=== PATIENT | female | born 1990 | race Caucasian/White ===

== ENCOUNTER → 2020-02-16 17:45 | Outpatient (CLI) | payer OTHER, SELFPAY | DX: Z11.59 Encounter for screening for other viral diseases (principal) | CPT/HCPCS: 87635; G2023; U0003 ==

== ENCOUNTER 2023-05-27 09:57 | Emergency (ER) | payer OTHER, SELFPAY ==
[2023-05-27 09:58] VITALS: BP 122/61; PULSE 84; RESP 18; TEMP 36.6; O2SAT 100; BMI 40.3
--- NOTE | 2023-05-27 10:27 | US_ITS ---
INDICATION: PAIN EXAMINATION: Ultrasound US Abdomen Limited (quadrant) TECHNIQUE: Gallegos scale and color doppler imaging was performed of the right upper quadrant. COMPARISON: No relevant prior comparison study available FINDINGS: LIVER: There is normal echotexture. No focal hepatic lesion. There is no free fluid. GALLBLADDER AND BILIARY TREE: No shadowing gallstone, pericholecystic fluid or gallbladder wall thickening is demonstrated. The proximal common bile duct measures 3.1 mm, which is within normal limits for the patient''s age. Songraphic Lynch''s sign: Negative. PANCREAS: No focal abnormality is demonstrated in the pancreas. No pancreatic ductal dilatation. RIGHT KIDNEY: The right kidney measures 11.8 cm in length and is within normal limits. US/Gallbladder IMPRESSION: No acute sonographic abnormality is demonstrated in the right upper quadrant. Electronically Signed: Christine Scott MD at 12:05 EDT ,
--- NOTE | 2023-05-27 10:27 | ED.VIS.GI ---
HPI HPI - GI History of Present Illness Chief Complaint: Abd Pain Informant: patient Narrative Narrative: Is a 33-year-old female currently 20 weeks (due October 07 and follows with [facility].) She is presenting with worsening right upper quad abdominal pain as well as green diarrhea. She states that started yesterday afternoon around noon or 1. She thought maybe she was hungry not eating enough but the pain has persisted and she then developed diarrhea. She notes that she had an egg and sausage wrap for breakfast yesterday and ate a small amount of chicken yesterday that self has had. She has associated nausea and the pain is worse whenever she tries to drink. She is also concern for dehydration. States the pain is sharp in her right upper quadrant and radiates to the rest of her abdomen. Has not started feeling the baby move yet because of an anterior placenta but denies any vaginal bleeding, discharge or urinary symptoms. Denies any complication with the . Did see maternal medicine because she has a history of a Stevie-en-Y in February 2020. Had her 20-week anatomy scan last week and everything looked fine per patient. No other complaints or concerns at this time. She does note that years ago she had a similar episode of pain that they thought was her gallbladder but she never had cholecystectomy or further issues. PFSH PFS Medical History (Updated 05/27/23 @ 15:[address] Caroline Rodriguez, ) Anxiety Depression Home Medications ondansetron 4 mg disintegrating tablet 4 mg PO Q6H PRN nausea and vomiting #10 tabs 05/27/23 [Rx Last Taken Unknown] Allergy/AdvReac Type Severity Reaction Status Date / Time azithromycin [From Zithromax] AdvReac Nausea/Vom/ Verified 05/27/23 10:02 Diarrhea NSAIDS (Non-Steroidal AdvReac NVD Verified 05/27/23 10:02 Anti-Inflamma Surgical History (Updated 05/27/23 @ 10:45 by Yolie Ram) Gastric bypass status for obesity Social History Smoking Status: Former smoker ROS ROS ED Constitutional Constitutional ED: Denies chills or fever(s) Cardiovascular Cardiovascular: Denies chest pain Respiratory/Chest Respiratory/Chest: Denies cough Gastrointestinal Gastrointestinal: Reports abdominal pain, diarrhea, nausea and vomiting Genitourinary Genitourinary ED: Reports other Details: 20 weeks ; Denies dysuria or hematuria Musculoskeletal Musculoskeletal: Denies arthralgias or myalgias Integumentary Denies rash Neurologic Neurologic: Denies headache(s) Psychiatric Psychiatric: Denies anxiety EXAM Physical Exam Const Vital Signs: 05/27/23 09:58 05/27/23 13:47 Temperature 97.9 F Temperature Source Temporal Pulse Rate 84 Respiratory Rate 18 18 Blood Pressure 122/61 H Blood Pressure Mean 81 Pulse Ox 100 Oxygen Delivery Method Room Air Room Air Positive well nourished and well developed General Appearance ED: well developed and NAD HEENT Reports dry mucous membranes Mouth ED: Yes dry mucous membranes Mouth: dry mucous membranes Eyes PERRL and EOMs intact bilaterally General Eye ED: Negative for scleral icterus Neck supple Resp normal respiratory effort and clear to auscultation bilaterally Cardio regular rate, regular rhythm and no murmurs GI GI Narrative: Tenderness in the upper abdomen but most pronounced in the right upper quadrant. Positive Lynch sign. Palpable uterus at the level of the umbilicus. No peritoneal signs or guarding. Auscultation: hypoactive bowel sounds Back/Spine no CVA tenderness Extremity full ROM General Extremety ED: Negative for edema General Extremity: Negative for edema Neuro moves all extremities and no sensory deficits noted Sensorium / Orientation: alert Psych mental status grossly normal and thought process normal Skin no wounds General Skin Exam: Negative for jaundice MDM MDM MDM Narrative Medical decision making narrative: Patient's evaluated for diarrhea as well as worsening right upper quadrant abdominal pain. Differential includes gastroenteritis, bowel obstruction (less likely), pancreatitis, renal colic, biliary colic as well as acute cholecystitis. Will give morphine and Zofran for symptom control as well as IV fluids. Will obtain basic abdominal labs, heart tones and a right upper quadrant ultrasound. Patient's vital signs are normal and she does not have a surgical abdomen at this time but does appear uncomfortable. Given a dose of Zofran and morphine in the ER as well as IV fluids. Vital signs remained stable. She is feeling much better. CBC, CMP, lipase are largely normal. She does have 500 leukocyte esterase in her abdomen but it does appear contaminated. Will send for culture. Given her lack of UTI symptoms, CVA tenderness, leukocytosis or fever of the lower suspicion for pyelonephritis. Right upper quadrant ultrasound does not show any findings consistent with acute cholecystitis or other acute abnormalities. Given her improvement of symptoms in the emergency room and normal work-up I think she stable for outpatient follow-up and does not require an emergent surgical consult. She has normal heart tones in the ER and I do not think she needs to be sent over to OB triage. I did discuss with Dr. Salamanca, OB on-call, who will follow-up outpatient with her culture but has no further recommendations at this time. Patient be given a prescription for Zofran. Given return precautions. Discharged home in stable improved condition. Is eating chips and drinking Gatorade at time of discharge. Lab Data Labs: Laboratory Results - last 24 hr 05/27/23 10:35 WBC 8.0 RBC 4.38 Hgb 13.1 Hct 40.1 MCV 91.6 MCH 29.9 MCHC 32.7 RDW Std Deviation 49.1 H RDW Coeff of Rosie 14.6 Plt Count 203 MPV 10.8 Immature Gran % (Auto) 0.400 Neut % (Auto) 84.5 H Lymph % (Auto) 8.3 L [place] % (Auto) 5.6 Eos % (Auto) 1.0 Baso % (Auto) 0.2 Absolute Neuts (auto) 6.8 Absolute Lymphs (auto) 0.67 L Nucleated RBC % 0 Sodium 137 Potassium 3.4 L Chloride 109 H Carbon Dioxide 23.0 Anion Gap 5 BUN 6 L Creatinine 0.61 Estim Creat Clear Calc 118.04 Est GFR (MDRD) Af Amer 146 Est GFR (MDRD) Non-Af 120 BUN/Creatinine Ratio 9.9 L Glucose 81 Calcium 8.5 Total Bilirubin 0.80 Direct Bilirubin 0.14 AST 17 ALT 21 Alkaline Phosphatase 55 Total Protein 6.8 Albumin 2.8 L Globulin 4.0 Lipase 22 Urine Color Yellow Urine Clarity Sl. Cloudy Urine pH 6.5 Ur Specific [place] 1.010 Urine Protein Negative Urine Glucose (UA) Normal Urine Ketones 5 H Urine Occult Blood 10 H Urine Nitrite Negative Urine Bilirubin Negative Urine Urobilinogen Normal Ur Leukocyte Esterase 500 H Urine RBC 0 SEEN Urine WBC 0-5 SEEN Ur Squamous Epith Cells 5-10 SEEN Urine Bacteria 1+ Urine Mucus 0 SEEN Radiography Diagnostic Testing: Clinical Impression(s) from Imaging Studies Gallbladder Ultrasound 05/27/23 10:27 IMPRESSION: No acute sonographic abnormality is demonstrated in the right upper quadrant. Electronically Signed: Christine Scott MD at 12:05 EDT , Management Discussion w/another healthcare provider: Administrative Assistant Front Desk Discharge Plan Triage Chief Complaint: Abd Pain ED Provider: Caroline Rodriguez Dx/Rx/DC Orders Clinical Impression: Diarrhea, Abdominal pain in Instructions: ED Diarrhea, Unknown Cause, ED Diet Vomiting Diarrhea Prescriptions: New ondansetron 4 mg tablet,disintegrating 4 mg PO Q6H PRN (Reason: nausea and vomiting) Qty: 10 0RF Primary Care Provider: Maddie Briseno Referrals: Millie Salamanca MD [Med Staff - Active Staff] - 1-2 Days if not improving Maddie Briseno, [employer] [Primary Care Provider] - Activity Restrictions/Additional Instructions: Your work-up was largely normal. We will send your urine off for culture but will defer antibiotics at this time. Exact cause of your symptoms is not clear however it is possible this could be of a viral syndrome causing the diarrhea. You do not have findings consistent with a gallbladder attack or gallstones causing issues. Disposition Disposition: Home, Self Care
[2023-05-27] MEDS: Ondansetron 4 MG/2 ML Vial IV (10:37)
[2023-05-27] MEDS: 0.9% Normal Saline (1000mL) 1,000 ML 1000 ML IV (10:37)
[2023-05-27] MEDS: Morphine 4 MG/ML Syringe 6 MG IV (10:38)
[2023-05-27 10:51] LABS: Mucous, Urine 0 SEEN /hpf (<or=2+); Red Blood Cells-Urine 0 SEEN /hpf (0-5)
[2023-05-27 10:53] LABS: Color, Urine Yellow (Yellow); Glucose, Dipstick Normal (Normal); Ketone-Dipstick 5 mg/dl (Negative); Leukocyte Esterase-Dipstick 500 /ul (Negative); Nitrite-Dipstick Negative (Negative); Occult Blood-Urine 10 /ul (Negative); Protein-Dipstick Negative (Negative); Urine Bilirubin Dipstick Negative (Negative); Urine Clarity Sl. Cloudy (Clear); Urine Urobilinogen Normal (Normal); Urine pH 6.5 (5.0 - 8.0)
[2023-05-27 10:54] LABS: Absolute Lymphocyte Count 0.67 X10^3/uL (0.83-4.51); Absolute Neutrophil Count 6.8 X10^3/uL (2.0-7.7); Basophil# 0.02 X10^3/uL; Basophil% 0.2 % (0-1); Eosinophil# 0.08 X10^3/uL; Hematocrit 40.1 % (37-47); Hemoglobin 13.1 g/dL (12.0-15.0); Lymphocyte # 0.67 X10^3/ul (0.83-4.51); Lymphocyte % 8.3 % (19-41); Mean Corp Hgb Conc 32.7 g/dL (32-36); Mean Corpuscular Hgb 29.9 pg (27.0-32.0); Mean Corpuscular Volume 91.6 fL (81-99); Mean Platelet Vol. 10.8 fl (6.2-12.0); Monocyte# 0.45 X10^3/uL; Monocyte% 5.6 % (0-10); NRBC Flagged by Analyzer 0 % (0-5); Neutrophil # 6.78 X10^3/uL (2.7-7.7); Neutrophil % 84.5 % (47-70); Platelet Count 203 K/mm3 (150-450); RBC Distribution Width CV 14.6 % (11.6-14.6); RBC Distribution Width SD 49.1 fl (35.1-43.9); Red Blood Count 4.38 M/mm3 (4.2-5.4)
[2023-05-27 11:02] LABS: Bacteria 1+ /hpf (None Seen); Squamous Epithelial Cells - UA 5-10 SEEN /hpf (5-10); White Blood Cells 0-5 SEEN /hpf (0-5)
[2023-05-27 11:13] LABS: AST(SGOT) 17 U/L (15-37); Alanine Aminotransfer ALT/SGPT 21 U/L (13-56); Albumin, Serum 2.8 g/dL (3.2-5.0); Alkaline Phosphatase 55 U/L (45-117); Anion Gap 5 (5-15); BUN 6 mg/dL (7-18); BUN/Creat Ratio 9.9 RATIO (10-20); Bilirubin, Direct 0.14 mg/dL (0.00-0.30); Calcium,Total 8.5 mg/dL (8.5-10.1); Chloride 109 mmol/L (98-107); Creatinine, Serum 0.61 mg/dL (0.55-1.02); EST Glomerular Filtration Rate 120 mL/min (>60); Est Glom Filt Rate - Afr Amer 146 mL/min (>60); Estimated Creatinine Clearance 118.04 ml/min; Glucose 81 mg/dL (74-106); Lipase 22 U/L (13-75); Potassium 3.4 mmol/L (3.5-5.1); Protein, Total 6.8 g/dL (6.4-8.2); Sodium Level 137 mmol/L (136-145)
[2023-05-27 13:47] VITALS: RESP 18
== END 2023-05-27 15:31 | disposition home or self-care (01) ==
PROVIDERS: Emergency Provider Emergency Medicine; PCP Nurse Practitioner Family; Visit Provider Emergency Medicine
DX: O26.892 Other specified pregnancy related conditions, second trimester (principal); R19.7 Diarrhea, unspecified; Z87.891 Personal history of nicotine dependence; R10.9 Unspecified abdominal pain; R11.0 Nausea; Z3A.20 20 weeks gestation of pregnancy
CPT/HCPCS: 76705; 80048; 80076; 81001; 83690; 85025; 87086; 87088; 96361; 96374; 96375; 99283; J2405

== ENCOUNTER 2023-09-20 11:30 | Outpatient (CLI) | payer OTHER, SELFPAY ==
[2023-09-20 11:23] VITALS: TEMP 36.6
[2023-09-20 11:51] VITALS: BP 106/54; PULSE 58
[2023-09-20 11:53] VITALS: PULSE 60; O2SAT 100
[2023-09-20 12:15] VITALS: BMI 44.2
[2023-09-20 12:27] LABS: Red Blood Cells-Urine 0 SEEN /hpf (0-5)
[2023-09-20 12:47] LABS: Color, Urine Yellow (Yellow); Glucose, Dipstick Normal (Normal); Ketone-Dipstick Negative (Negative); Leukocyte Esterase-Dipstick 100 /ul (Negative); Nitrite-Dipstick Negative (Negative); Occult Blood-Urine Negative /ul (Negative); Protein-Dipstick Negative (Negative); Specific Gravity, Urine 1.015 (1.002-1.030); Urine Bilirubin Dipstick Negative (Negative); Urine Clarity Cloudy (Clear); Urine Urobilinogen 1 mg/dl (Normal)
[2023-09-20 12:54] LABS: Bacteria 2+ /hpf (None Seen); Mucous, Urine 1+ /hpf (<or=2+); Squamous Epithelial Cells - UA 5-10 SEEN /hpf (5-10); White Blood Cells 0-5 SEEN /hpf (0-5)
[2023-09-20 12:58] LABS: Protein, Urine (Random) 18.2 mg/dL (<11.9); Protein:Creat Ratio 139 mg/g CRE (0-200)
--- NOTE | 2023-09-21 08:39 | OB.TRI.HP_ITS ---
HPI - General General Date of Service: 09/20/23 HPI Narrative LIZETT LANDON, is a 33 F who presents c/o lower back pain, extreme fatigue, cramping and overall just not feeling well- concerned it could be preeclampsia. denies visual changes or RUQ pain. Occasional VENEGAS but nothing pers istent. No vb, or LOF. goodFM> PFSH PFSH Medical History (Updated 09/21/23 @ 08:[address] Shira Fleming MD) Anxiety Depression Home Medications ondansetron 4 mg disintegrating tablet 4 mg PO Q6H PRN nausea and vomiting #10 tabs 05/27/23 [Rx Last Taken Unknown] Allergy/AdvReac Type Severity Reaction Status Date / Time azithromycin [From Zithromax] AdvReac Nausea/Vom/ Verified 05/27/23 10:02 Diarrhea NSAIDS (Non-Steroidal AdvReac NVD Verified 05/27/23 10:02 Anti-Inflamma Surgical History (Updated 05/27/23 @ 10:45 by Yolie Ram) Gastric bypass status for obesity Social History Smoking Status: Former smoker Physical Exam Narrative Gen: female in NAD Abd: soft, non tender - gravid. no RUQ pain. Const General Appearance: cooperative and comfortable NST FHR Rate Baby A Baseline: 125 Variability:: Moderate Accelerations:: 15 x 15 Decelerations:: None NST Reactive:: Yes FHR Category:: Category I Uterine Activity:: no ctx Assessment & Plan (1) Back pain affecting : (2) Anxiety: PLAN: Plan @ 37 weeks with back pain, exhaustion- VS wnl NST cat 1 reactive well being established dc home
== END 2023-09-20 13:20 | disposition home or self-care (01) ==
LOC: WPOUT 11:40 → WP 11:40
PROVIDERS: PCP Nurse Practitioner Family; Referring Provider Obstetrics & Gynecology; Visit Provider Obstetrics & Gynecology
DX: O99.891 Other specified diseases and conditions complicating pregnancy (principal); O99.343 Other mental disorders complicating pregnancy, third trimester; M54.50 Low back pain, unspecified; F41.9 Anxiety disorder, unspecified; Z87.891 Personal history of nicotine dependence; Z3A.37 37 weeks gestation of pregnancy
CPT/HCPCS: 36415; 59025; 59050; 81001; 82570; 84156; 99221; G0378

== ENCOUNTER 2023-09-26 00:24 | Outpatient (CLI) | payer OTHER, SELFPAY ==
--- OUTSIDE RECORDS SUMMARY | 2023-09-26 00:33 | XMS RPT_ITS | CCD ---
Author Name Unknown Address [address] [facility] [address] [place] [address] Organization [facility] Care Team Providers Care Gate Keeper Name Role Phone Karen Palomares Unavailable Unavailable Karen Palomares Unavailable Unavailable Teofilo Parsons Unavailable Unavailable Teofilo Parsons Unavailable Unavailable Teofilo Parsons Unavailable Unavailable Teofilo Parsons Unavailable Unavailable No, Physician Primary Care Provider Unavailabl e Nathalie, Physician Primary Care Provider UnavailSofi Cherry Admitting Unavailable Sofi Verdugo Attending Unavailable Karen Palomares Primary Care Unavailable Unavailable Primary Care Provider UnavailStormy Cabral Primary Care Provider Stormy Webber Primary Care Provider SOFI VERDUGO Attending Unavailable NATHALIE, PHYSICIAN Primary Care Unavailable Stormy Webber CNP Primary Care Provider Stormy Webber CNP Primary Care Provider LAUREN PROCTOR Attending Unavaila ble STORMY WEBBER Primary Care Unavailabl e STORMY WEBBER Primary Care Unavailabl e STORMY WEBBER Admitting Unavailabl e Stormy Webber CNP Primary Care Provider Stormy Webber CNP Primary Care Provider Lauren Proctor CNP Unavailable Stormy Webber CNP Primary Care Provider Unavailable Primary Care Provider Maddie Davis Primary Care Provider Maddie Barber CNP Primary Care Provider KesslerHaylee gabriel DOdith A Primary Care Provider Kessler DO Holli Primary Care Provider VIJAY BARBERIDI Zach Primary Care Unavailable MADDIE BARBER Primary Care Unavailable KESSLER, HOLLI A Primary Care Unavailable KESSLER, HOLLI A Primary Care Unavailable SUNIL MADDIE Zach Attending Unavailable SUNILMADDIE Primary Care Unavailable SUNILVIJAYMADDIE Zach Attending Unavailable SUNIL MADDIE Zach Referring Unavailable MADDIE BARBER Primary Care Unavailable KESSLER, HOLLI A Attending Unavailable KESSLER, HOLLI A Primary Care Unavailable KESSLER, HOLLI A Attending Unavailable KESSLER, HOLLI A Referring Unavailable KESSLER, HOLLI A Primary Care Unavailable SICKLE, SALMA Admitting Unavailable KESSLER, HOLLI Primary Care Unavailable SICKLE, SALMA Attending Unavailable SICKLE, SALMA Referring Unavailable DEBRA KERR Attending Unavailable DEBRA KERR Referring Unavailable MADDIE BARBER Primary Care Unavailable DEBRA KERR Admitting Unavailable WEBBER, STORMY Primary Care Unavailable EJISON JOSEPH Attending Unavailable WEBBER, STORMY Primary Care Unavailable WEBBER, STORMY Primary Care Unavailable ROEL ANTUNEZENDOLINE Attending Unavailable FANG, GWENDOLINE Referring Unavailable WEBBER, STORMY Primary Care Unavailable KESSLER, HOLLI Primary Care Unavailable CHARLI GREER Admitting Unavailable SUBIT, CHARLI Diego Attending Unavailable SUBCHARLI ARELLANO Referring Unavailable ASHELY KIM Referring Unavailable ASHELY KIM Attending Unavailable NERI CANNON Attending Unavailable PLOTTS, YISSEL Referring Unavailable HONG CASTELLANO Attending Unavailable JUDY, ASHELY L Referring Unavailable PLOTTS, YISSEL Referring Unavailable PLOTTS, YISSEL Attending Unavailable PLOTTS, YISSEL Attending Unavailable PLOTTS, YISSEL Referring Unavailable PLOTTS, YISSEL Attending Unavailable PLOTTS, YISSEL Attending Unavailable PLOTTS, YISSEL Referring Unavailable HONG CASTELLANO Attending Unavailable MICHEL LEE Attending Unavailable PLOTTS, YISSEL Attending Unavailable JUDY, ASHELY L Referring Unavailable Allergies Allergy Classification Reported Allergen(s) Allergy Type Date of Onset Reaction(s) Facility (20 sources) Azithromycin; Translations: [Unknown] Drug Allergy 7 GI Intolerance, Dyspepsia, GI Upset, Other [facility] Work Phone: (1 source) Azithromycin; Translations: [Zithromax] Drug Allergy [facility] Repository (20 sources) NSAIDs; Translations: [NSAIDS (NON-STEROIDAL ANTI-INFLAMMATO RY DRUG)] Propensity to adverse reactions to drug 0 Intolerance, Other [facility] (3 sources) NSAIDs Propensity to adverse reactions to drug 3 [facility] Medications Current Medications Medication Drug Class(es) Dates Sig (Normalized) Sig (Original) acetaminophen 325 mg oral tablet (5 sources) Start: 02-24-2020 End: 08-16-2020 take 2 tablets by mouth every six hours for obesity acetaminophen 325 MG tablet Indications: Status post gastric bypass for obesity Take 2 tablets by mouth every 6 hours. 112 tablet 0 02/24/2020 Active [id number] 200 actuat albuterol 0.09 mg/actuat metered dose inhaler (20 sources) beta2-Adrenergic Agonist Start: 07-15-2023 End: 07-14-2024 albuterol 2.5 mg /3 mL (0.083 %) nebulizer solution Indications: Mild intermittent asthma without complication Take 3 mL (2.5 mg) by nebulization 4 times a day as needed for wheezing or shortness of breath. 30 mL 3 07/15/2023 07/14/2024 Active Completed/Discontinued Medications Medication Drug Class(es) Dates Sig (Normalized) Sig (Original) atorvastatin 10 mg oral tablet (9 sources) HMG-CoA Reductase Inhibitor Start: 10-06-2019 End: 07-03-2023 take 1 tablet by mouth once daily in the morning atorvastatin 10 MG tablet Take 10 mg by mouth daily every morning. 0 10/06/2019 07/03/2023 Discontinued (Stop Taking at Discharge) Problems Active Problems Problem Classification Problem Date Documented Da te Episodic/Chronic Abdominal pain (7 sources) Generalized abdominal pain; Translations: [Generalized abdominal pain] Onset: 01-23-2023 01-23-2023 Episodic Anxiety disorders (20 sources) Anxiety; Translations: [Anxiety disorder, unspecified] Onset: 09-19-2018 09-19-2018 Chronic Asthma (9 sources) Mild intermittent asthma; Translations: [Mild intermittent asthma, uncomplicated] Onset: 04-11-2023 04-11-2023 Chronic Contraceptive and procreative management (5 sources) Patient encounter status; Translations: [Encounter for contraceptive management, unspecified] Episodic Diabetes mellitus without complication (1 source) Impaired fasting glycemia; Translations: [Impaired fasting glucose] Episodic Disorders of lipid metabolism (12 sources) Hyperlipidemia; Translations: [Hyperlipidemia, unspecified] Onset: 09-23-2018 09-23-2018 Chronic E Codes: Fall (2 sources) Fall; Translations: [Fall] Onset: 07-03-2023 Mood disorders (4 sources) Mild major depression; Translations: [Major depressive disorder, single episode, mild] Onset: 06-16-2023 Chronic Nutritional deficiencies (6 sources) Iron deficiency; Translations: [Iron deficiency] Onset: 06-16-2023 06-16-2023 Episodic Other complications of (20 sources) Obesity; Translations: [Obesity complicating , unspecified trimester] Onset: 02-28-2023 02-28-2023 Chronic Other complications of (2 sources) Maternal obesity complicating , childbirth and the puerperium, antepartum; Translations: [Obesity complicating , third trimester] 09-16-2023 Chronic Other complications of (1 source) Obesity complicating , third trimester; Translations: [Obesity affecting in third trimester, unspecified obesity type] Onset: 09-16-2023 Chronic Other complications of (1 source) Obesity complicating , unspecified trimester; Translations: [Obesity in ] Onset: 04-02-2023 Chronic Other complications of (3 sources) High risk ; Translations: [Supervision of high risk , unspecified, unspecified trimester] 02-28-2023 Episodic Other complications of (1 source) Supervision of high risk , unspecified, unspecified trimester; Translations: [Supervision of high risk , antepartum] Onset: 07-25-2023 Episodic Other connective tissue disease (1 source) Spasm; Translations: [Muscle spasm] Episodic Other endocrine disorders (1 source) Hypoglycemia Chronic Other endocrine disorders (11 sources) Polycystic ovary syndrome; Translations: [Polycystic ovarian syndrome] Onset: 01-30-2022 01-30-2022 Chronic Other female genital disorders (3 sources) Dysfunctional uterine bleeding; Translations: [DUB (dysfunctional uterine bleeding)] Onset: 05-23-2017 05-23-2017 Chronic Other gastrointestinal disorders (7 sources) Diarrhea; Translations: [Diarrhea, unspecified] Onset: 05-27-2023 01-23-2023 Episodic Other nutritional; endocrine; and metabolic disorders (3 sources) Metabolic disease; Translations: [Insulin resistance] Onset: 04-03-2017 04-03-2017 Chronic Other nutritional; endocrine; and metabolic disorders (20 sources) Body mass index 40+ - severely obese; Translations: [Morbid (severe) obesity due to excess calories] Onset: 09-19-2018 Resolved: 01-30-2022 09-19-2018 Chronic Other nutritional; endocrine; and metabolic disorders (2 sources) Metabolic syndrome X; Translations: [Insulin resistance] Onset: 04-03-2017 04-03-2017 Chronic Other nutritional; endocrine; and metabolic disorders (1 source) Morbid (severe) obesity due to excess calories; Translations: [Class 3 severe obesity with body mass index (BMI) of 50.0 to 59.9 in adult, unspecified obesity type, unspecified whether serious comorbidity present (HCC)] Chronic Other nutritional; endocrine; and metabolic disorders (8 sources) Severe obesity; Translations: [Morbid (severe) obesity due to excess calories] Onset: 09-28-2019 09-28-2019 Chronic Other nutritional; endocrine; and metabolic disorders (4 sources) Morbid obesity; Translations: [Morbid (severe) obesity due to excess calories] Onset: 01-04-2020 01-21-2020 Chronic Other nutritional; endocrine; and metabolic disorders (2 sources) Insulin resistance; Translations: [Insulin resistance] Onset: 04-03-2017 04-03-2017 Other upper respiratory disease (1 source) Seasonal allergy; Translations: [Seasonal allergies] Chronic Residual codes; unclassified (1 source) Gestation period, 8 weeks; Translations: [8 weeks gestation of ] 03-04-2023 Episodic Residual codes; unclassified (2 sources) Gestation period, 12 weeks; Translations: [12 weeks gestation of ] 04-02-2023 Episodic Residual codes; unclassified (1 source) Gestation period, 20 weeks; Translations: [20 weeks gestation of ] 05-23-2023 Episodic Residual codes; unclassified (1 source) Gestation period, 24 weeks; Translations: [24 weeks gestation of ] 06-20-2023 Episodic Residual codes; unclassified (2 sources) Gestation period, 36 weeks; Translations: [36 weeks gestation of ] 09-16-2023 Episodic Residual codes; unclassified (1 source) 24 weeks gestation of ; Translations: [24 weeks gestation of ] Onset: 07-25-2023 Episodic Thyroid disorders (9 sources) Hypothyroidism; Translations: [Acquired hypothyroidism] Onset: 04-11-2023 Chronic Unclassified (1 source) Requires vaccination; Translations: [Need for vaccination] Unclassified (2 sources) stomach cramping Onset: 05-27-2023 Past or Other Problems Problem Classification Problem Date Documented Da te Episodic/Chronic Deficiency and other anemia (11 sources) Iron deficiency anemia; Translations: [Iron deficiency anemia, unspecified] Onset: 09-23-2018 Resolved: 06-16-2023 09-23-2018 Episodic Genitourinary symptoms and ill-defined conditions (4 sources) Genitourinary tract hemorrhage; Translations: [Abnormal uterine and vaginal bleeding, unspecified (CODE)] Onset: 05-23-2017 Resolved: 09-19-2018 09-19-2018 Episodic Menstrual disorders (11 sources) Disorder of menstruation; Translations: [Irregular menstruation, unspecified] Onset: 04-03-2017 Resolved: 09-19-2018 09-19-2018 Chronic Other complications of (20 sources) ; Translations: [Supervision of with history of infertility, unspecified trimester] Onset: 02-28-2023 02-28-2023 Episodic Other complications of (13 sources) Rubella non-immune; Translations: [Supervision of other high risk pregnancies, unspecified trimester] Onset: 04-04-2023 04-04-2023 Episodic Other complications of (1 source) Bariatric surgery status complicating , unspecified trimester; Translations: [ complicated by previous gastric bypass, antepartum] Onset: 04-02-2023 Episodic Other complications of (1 source) Supervision of with history of infertility, unspecified trimester; Translations: [ associated with use of clomiphene, antepartum] Onset: 02-28-2023 Episodic Other female genital disorders (7 sources) Abnormal uterine bleeding; Translations: [Other specified abnormal uterine and vaginal bleeding] Onset: 05-23-2017 Resolved: 01-30-2022 05-23-2017 Chronic Other female genital disorders (5 sources) Genitourinary tract hemorrhage; Translations: [Abnormal uterine and vaginal bleeding, unspecified] Onset: 05-23-2017 Resolved: 09-19-2018 09-19-2018 Chronic Other gastrointestinal disorders (20 sources) History of bypass of stomach; Translations: [Bariatric surgery status] Onset: 02-23-2020 02-23-2020 Episodic Other gastrointestinal disorders (6 sources) Diarrhea, unspecified; Translations: [Diarrhea, unspecified] Onset: 01-23-2023 Episodic Other gastrointestinal disorders (4 sources) Bariatric surgery status; Translations: [Bariatric surgery status] Onset: 04-11-2023 Episodic Other lower respiratory disease (20 sources) H/O: asthma; Translations: [Personal history of other diseases of the respiratory system] Onset: 03-04-2023 03-04-2023 Episodic Other nutritional; endocrine; and metabolic disorders (12 sources) Insulin resistance; Translations: [Metabolic syndrome] Onset: 04-03-2017 Resolved: 04-11-2023 04-03-2017 Chronic Other nutritional; endocrine; and metabolic disorders (20 sources) H/O: hypothyroidism; Translations: [Personal history of other endocrine, nutritional and metabolic disease] Onset: 02-28-2023 02-28-2023 Episodic Other and delivery including normal (5 sources) First trimester ; Translations: [Encounter for supervision of normal first , first trimester] Onset: 04-02-2023 03-04-2023 Episodic Other screening for suspected conditions (not mental disorders or infectious disease) (2 sources) Encounter for screening for malignant neoplasm of cervix; Translations: [Encounter for screening for malignant neoplasm of cervix] Onset: 10-02-2022 Episodic Residual codes; unclassified (20 sources) FH: Congenital anomaly; Translations: [Family history of other congenital malformations, deformations and chromosomal abnormalities] Onset: 02-28-2023 02-28-2023 Episodic Residual codes; unclassified (1 source) 8 weeks gestation of ; Translations: [8 weeks gestation of ] Onset: 04-02-2023 Episodic Screening and history of mental health and substance abuse codes (20 sources) H/O: depression; Translations: [Personal history of other mental and behavioral disorders] Onset: 02-28-2023 Resolved: 04-11-2023 02-28-2023 Episodic Unclassified (5 sources) Patient encounter status; Translations: [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[employer] [place] 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 (general) (routine) w/o abn findings] Onset: 05-23-2017 Resolved: 09-23-2017 09-23-2017 Unclassified (3 sources) Onset: 04-11-2023 Resolved: 05-27-2023 04-11-2023 Results Test Name Value Interpretation Reference Range Facil ity Vital Signs Date Time Vital Sign Value Performing Clinician Seferino ward 09-16-2023 09:13-0500 Body weight 119.48 kg Yissel Ramon DISC PAD GRINDING MACHINE FEEDER.CNM Work Phone: [facility] 09-16-2023 09:13-0500 Diastolic blood pressure 72 mm[Hg] Yissel Ramon DISC PAD GRINDING MACHINE FEEDER.CNM Work Phone: [facility] 09-16-2023 09:13-0500 Systolic blood pressure 116 mm[Hg] Yissel Ramon DISC PAD GRINDING MACHINE FEEDER.CNM Work Phone: [facility] 07-03-2023 21:14-0500 Body height 165.1 cm Charli Greer MD Work Phone: [facility] 07-03-2023 21:14-0500 Body mass index (BMI) [Ratio] 40.94 kg/m2 Charli Greer MD Work Phone: [facility] 07-03-2023 21:14-0500 Body weight 111.58 kg Charli Greer MD Work Phone: [facility] 07-03-2023 21:07-0500 Body temperature 97.5 [degF] Charli Greer MD Work Phone: [facility] 07-03-2023 21:07-0500 Diastolic blood pressure 75 mm[Hg] Charli Greer MD Work Phone: [facility] 07-03-2023 21:07-0500 Heart rate 80 /min Charli Greer MD Work Phone: [facility] 07-03-2023 21:07-0500 Respiratory rate 18 /min Charli Greer MD Work Phone: [facility] 07-03-2023 21:07-0500 SaO2% (BldA) [Mass fraction] 96 % Charli Greer MD Work Phone: [facility] 07-03-2023 21:07-0500 Systolic blood pressure 125 mm[Hg] Charli Greer MD Work Phone: [facility] 06-20-2023 14:23-0500 Body weight 114.94 kg Yissel Plotts DISC PAD GRINDING MACHINE FEEDER.CNM Work Phone: [facility] 06-20-2023 14:23-0500 Diastolic blood pressure 80 mm[Hg] Yissel Plotts DISC PAD GRINDING MACHINE FEEDER.CNM Work Phone: [facility] 06-20-2023 14:23-0500 Systolic blood pressure 120 mm[Hg] Yissel Plotts DISC PAD GRINDING MACHINE FEEDER.CNM Work Phone: [facility] 06-13-2023 15:01-0500 Body height 165.1 cm Holli Kessler DO Work Phone: [facility] 06-13-2023 15:01-0500 Body mass index (BMI) [Ratio] 41.8 kg/m2 Holli Kessler DO Work Phone: [facility] 06-13-2023 15:01-0500 Body weight 113.94 kg Holli Kessler DO Work Phone: [facility] 06-13-2023 15:01-0500 Diastolic blood pressure 62 mm[Hg] Holli Kessler DO Work Phone: [facility] 06-13-2023 15:01-0500 Heart rate 64 /min Holli Kessler DO Work Phone: [facility] 06-13-2023 15:01-0500 Systolic blood pressure 106 mm[Hg] Holli Kessler DO Work Phone: [facility] 05-28-2023 11:53-0400 Body height 165.1 cm Debra Kerr MD Work Phone: [facility] 05-28-2023 11:53-0400 Body mass index (BMI) [Ratio] 39.94 kg/m2 Debra Kerr MD Work Phone: [facility] 05-28-2023 11:53-0400 Body weight 108.86 kg Debra Kerr MD Work Phone: [facility] 05-28-2023 11:39-0400 Body temperature 96.69 [degF] Debra Kerr MD Work Phone: [facility] 05-28-2023 11:39-0400 Diastolic blood pressure 58 mm[Hg] Debra Kerr MD Work Phone: [facility] 05-28-2023 11:39-0400 Heart rate 75 /min Debra Kerr MD Work Phone: [facility] 05-28-2023 11:39-0400 Respiratory rate 16 /min Debra Kerr MD Work Phone: [facility] 05-28-2023 11:39-0400 SaO2% (BldA) [Mass fraction] 98 % Debra Kerr MD Work Phone: [facility] 05-28-2023 11:39-0400 Systolic blood pressure 105 mm[Hg] Debra Kerr MD Work Phone: [facility] 05-23-2023 14:49-0400 Body weight 111.58 kg Hong Castellano MD Work Phone: [facility] 05-23-2023 14:49-0400 Diastolic blood pressure 62 mm[Hg] Hong Castelalno MD Work Phone: [facility] 05-23-2023 14:49-0400 Systolic blood pressure 98 mm[Hg] Hong Castellano MD Work Phone: [facility] 05-23-2023 13:40-0400 Body weight 111.58 kg Ob Ultrasound Work Phone: [facility] 04-11-2023 08:15-0400 Body height 165.1 cm Maddie Barber DISC PAD GRINDING 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 Work Phone: [facility] 04-11-2023 08:15-0400 Body mass index (BMI) [Ratio] 39.79 kg/m2 Maddie Barber DISC PAD GRINDING 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 Work Phone: [facility] 04-11-2023 08:15-0400 Body weight 108.47 kg Maddieana Barber DISC PAD GRINDING 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 Work Phone: [facility] 04-11-2023 08:15-0400 Diastolic blood pressure 60 mm[Hg] Maddieana Barber DISC PAD GRINDING 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 Work Phone: [facility] 04-11-2023 08:15-0400 Heart rate 64 /min Maddieana Barber DISC PAD GRINDING 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 Work Phone: [facility] 04-11-2023 08:15-0400 Systolic blood pressure 118 mm[Hg] Maddieana Barber DISC PAD GRINDING 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 Work Phone: [facility] 04-02-2023 10:50-0400 Body weight 107.96 kg Ashely Kim MD Work Phone: [facility] 04-02-2023 10:50-0400 Diastolic blood pressure 64 mm[Hg] Ashely Kim MD Work Phone: [facility] 04-02-2023 10:50-0400 Systolic blood pressure 100 mm[Hg] Ashely Kim MD Work Phone: [facility] 04-02-2023 09:35-0400 Body weight 108.32 kg Neri Cannon MD Work Phone: [facility] 04-02-2023 09:35-0400 Diastolic blood pressure 64 mm[Hg] Neri Cannon MD Work Phone: [facility] 04-02-2023 09:35-0400 Systolic blood pressure 100 mm[Hg] Neri Cannon MD Work Phone: [facility] 03-04-2023 13:06-0400 Body height 166.4 cm Yissel Ramon DISC PAD GRINDING MACHINE FEEDER.CNM Work Phone: [facility] 03-04-2023 13:06-0400 Body weight 107.5 kg Yissel Ramon DISC PAD GRINDING MACHINE FEEDER.CNM Work Phone: [facility] 03-04-2023 13:06-0400 Diastolic blood pressure 62 mm[Hg] Yissel Ramon DISC PAD GRINDING MACHINE FEEDER.CNM Work Phone: [facility] 03-04-2023 13:06-0400 Systolic blood pressure 110 mm[Hg] Yissel Ramon DISC PAD GRINDING MACHINE FEEDER.CNM Work Phone: [facility] 01-23-2023 21:54-0400 Diastolic blood pressure 56 mm[Hg] Jeison Joseph MD Work Phone: [facility] 01-23-2023 21:54-0400 Heart rate 64 /min Jeison Joseph MD Work Phone: [facility] 01-23-2023 21:54-0400 Respiratory rate 16 /min Jeison Joseph MD Work Phone: [facility] 01-23-2023 21:54-0400 SaO2% (BldA) [Mass fraction] 96 % Jeison Joseph MD Work Phone: [facility] 01-23-2023 21:54-0400 Systolic blood pressure 101 mm[Hg] Jeison Joseph MD Work Phone: [facility] 01-23-2023 19:25-0400 Body height 165.1 cm Jeison Joseph MD Work Phone: [facility] 01-23-2023 19:25-0400 Body mass index (BMI) [Ratio] 38.27 kg/m2 Jeison Joseph MD Work Phone: [facility] 01-23-2023 19:25-0400 Body weight 104.33 kg Jeison Joseph MD Work Phone: [facility] 01-23-2023 19:24-0400 Body temperature 98.29 [degF] Jeison Joseph MD Work Phone: [facility] 10-02-2022 10:03-0500 Body height 166.4 cm Isela Anutnez MD Work Phone: [facility] 10-02-2022 10:03-0500 Body mass index (BMI) [Ratio] 38.18 kg/m2 Isela Antunez MD Work Phone: [facility] 10-02-2022 10:03-0500 Body weight 105.69 kg Isela Antunez MD Work Phone: [facility] 10-02-2022 10:03-0500 Diastolic blood pressure 75 mm[Hg] Isela Antunez MD Work Phone: [facility] 10-02-2022 10:03-0500 Heart rate 88 /min Isela Antunez MD Work Phone: [facility] 10-02-2022 10:03-0500 Systolic blood pressure 131 mm[Hg] Isela Antunez MD Work Phone: [facility] 01-30-2022 15:45-0400 Body mass index (BMI) [Ratio] 36.09 kg/m2 Lauren Spieldenner 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 Work Phone: [facility] 01-30-2022 15:45-0400 Body temperature 98.1 [degF] Lauren Spieldenner 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 Work Phone: [facility] 01-30-2022 15:45-0400 Body weight 99.88 kg Lauren Spieldenner 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 Work Phone: [facility] 01-30-2022 15:45-0400 Diastolic blood pressure 71 mm[Hg] Lauren Spieldenner 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 Work Phone: [facility] 01-30-2022 15:45-0400 Heart rate 94 /min Lauren Spieldenner 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 Work Phone: [facility] 01-30-2022 15:45-0400 SaO2% (BldA) [Mass fraction] 97 % Lauren Hitesh 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 Work Phone: [facility] 01-30-2022 15:45-0400 Systolic blood pressure 104 mm[Hg] Lauren Hitesh 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 Work Phone: [facility] 10-06-2019 08:00-0500 BMI (Body Mass Index) 59.49 kg/m2 [facility] 10-06-2019 08:00-0500 Body Temperature 97.5 [degF] [facility] 10-06-2019 08:00-0500 Body weight 164.66 kg [facility] 10-06-2019 08:00-0500 BP Diastolic 77 mm[Hg] [facility] 10-06-2019 08:00-0500 BP Systolic 125 mm[Hg] [facility] 10-06-2019 08:00-0500 Height 166.4 cm [facility] 10-06-2019 08:00-0500 Pulse (Heart Rate) 74 /min [facility] 10-06-2019 08:00-0500 Pulse Oximetry 97 % [facility] 09-19-2018 08:17-0500 BMI (Body Mass Index) 59.91 kg/m2 [facility] 09-19-2018 08:17-0500 Body Temperature 97.59 [degF] [facility] 09-19-2018 08:17-0500 BP Diastolic 83 mm[Hg] [facility] 09-19-2018 08:17-0500 BP Systolic 128 mm[Hg] [facility] 09-19-2018 08:17-0500 Height 165.1 cm [facility] 09-19-2018 08:17-0500 Pulse (Heart Rate) 98 /min [facility] 09-19-2018 08:17-0500 Pulse Oximetry 98 % [facility] 09-19-2018 08:17-0500 Weight 163.29 kg [facility] 04-02-2017 10:50-0400 BMI (Body Mass Index) 54.75 kg/m2 Angela Haskins [facility] Work Phone: 04-02-2017 10:50-0400 BP Diastolic 92 mm[Hg] Angela Haskins [facility] Work Phone: 04-02-2017 10:50-0400 BP Systolic 124 mm[Hg] Angela Haskins [facility] Work Phone: 04-02-2017 10:50-0400 Height 165.1 cm Angela Haskins [facility] Work Phone: 04-02-2017 10:50-0400 Pulse (Heart Rate) 88 /min Angela Haskins [facility] Work Phone: 04-02-2017 10:50-0400 Weight 149.23 kg Angela Haskins [facility] Work Phone: Encounters Encounter Date Encounter Type Care Provider Facility Start: 09-25-2023 ambulatory [facility] [place] Procedures Date Procedure Procedure Detail Performing Clinician Start: 09-16-2023 URINE OB DIP B/O Shreya Ramon DISC PAD GRINDING MACHINE FEEDER.CNM Work Phone: Start: 09-16-2023 Us preg uterus after 1st trimest 08/05 gestation Yissel Ramon DISC PAD GRINDING MACHINE FEEDER.CNM Work Phone: Start: 07-25-2023 Antibody screen ASHELY JUDY Plan of Treatment Date Care Activity Detail Author Start: 02-05-2040 Zoster Vaccines (1 of 2) Zoster Vaccines (1 of 2) [facility] Start: 07-25-2033 Urine microalbumin profile DTaP,Tdap,Td Vaccine (3 - Td or Tdap) [facility] Start: 09-19-2028 DTaP/Tdap/Td Vaccines (2 - Td or Tdap) DTaP/Tdap/Td Vaccines (2 - Td or Tdap) [facility] Start: 09-19-2028 Tetanus vaccination [facility] Start: 09-19-2028 Urine microalbumin profile DTaP,Tdap,Td Vaccine (2 - Td or Tdap) [facility] Start: 03-04-2028 HPV TESTING HPV TESTING [facility] Start: 03-04-2028 PAP TESTING PAP TESTING [facility] Start: 03-04-2028 Screening for malignant neoplasm of cervix [facility] Start: 10-02-2027 Screening for malignant neoplasm of cervix Pap Smear [facility] Start: 03-04-2026 Screening for malignant neoplasm of cervix [facility] Start: 01-09-2024 End: 01-09-2024 Patient encounter procedure 01/09/2024 8:00 AM EDT Office Visit [facility] [address] [place] [address] Maddie Barber, DISC PAD GRINDING 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 [address] [place] [address] [facility] Start: 10-02-2023 History and physical examination, annual for health maintenance Wellness Visit [facility] Start: 10-02-2023 Screening for malignant neoplasm of cervix CERVICAL CANCER SCREENING DISCUSSION [facility] Start: 08-05-2023 Depression Assessment Depression Assessment [facility] Start: 07-20-2023 End: 10-19-2023 CBC W Auto Differential panel - Blood CBC + DIFF Lab Routine 24 weeks gestation of complicated by previous gastric bypass, antepartum Supervision of high risk , antepartum Expected: 07/20/2023 (Approximate), Expires: 10/19/2023 [facility] Work Phone: Immunizations Immunization Date Immunization Notes Care Provider Elvia payne 07-25-2023 RHO(D) immune globulin- IV or IM Ob Ultrasound Work Phone: [facility] 07-25-2023 tetanus toxoid, reduced diphtheria toxoid, and acellular pertussis vaccine, adsorbed Ob Ultrasound Work Phone: [facility] 04-17-2019 Influenza, injectabl e, Madin [place] Canine Kidney, preservative free, quadrivalent Stormy Webber [facility] 04-17-2019 influenza virus vaccine, unspecified formulation Isela Antunez MD Work Phone: [facility] 09-19-2018 diphtheria, tetanus toxoids and acellular pertussis vaccine, unspecified formulation [facility] 09-19-2018 tetanus toxoid, reduced diphtheria toxoid, and acellular pertussis vaccine, adsorbed [facility] Payers Date Payer Category Payer Private Health Insurance AETNA A ETNA CHOICE POS/POSII/PREMIER CARE/PREMIER CARE PLUS [id number] 2019-Present [id number] 2018 Private Health Insurance [id number] 2018 Private Health Insurance 2018 Private Health Insurance [id number] 1990 Unknown [id number] 2.16.840.1.818664.3.579.2. 717 1990 Unknown [id number] 2.16.840.1.355164.3.579.2. 90 1990 Unknown [id number] 2.16.840.1.085512.3.579.2. 903 1990 Unknown [id number] 2.16.840.1.529895.3.579.2. 1244 1990 Unknown [id number] 2.16.840.1.260953.3.579.2. 1244 1990 Unknown [id number] 2.16.840.1.052611.3.579.2. 1244 1990 Unknown [id number] 2.16.840.1.624188.3.579.2. 1244 1990 Unknown [id number] 2.16.840.1.650408.3.579.2. 1243 1990 Unknown [id number] 2.16.840.1.049804.3.579.2. 1243 1990 Unknown [id number] 2.16.840.1.109057.3.579.2. 1243 1990 Unknown [id number] 2.16.840.1.242049.3.579.2. 1244 1990 Unknown [id number] 2.16.840.1.611517.3.579.2. 983 1990 Unknown [id number] 2.16.840.1.861337.3.579.2. 983 1990 Unknown [id number] 2.16.840.1.728664.3.579.2. 983 1990 Unknown [id number] 2.16.840.1.129862.3.579.2. 983 1990 Unknown [id number] 2.16.840.1.448302.3.579.2. 983 1990 Unknown [id number] 2.16.840.1.732404.3.579.2. 983 1990 Unknown [id number] 2.16.840.1.985474.3.579.2. 983 Private Health Insurance [id number] Social History Date Type Detail Facility Start: 09-19-2018 End: 02-28-2023 Tobacco smoking status [facility] Never smoker [facility] Work Phone: Start: 1990 Sex Assigned At Not on file [facility] Work Phone: Start: 10-12-2019 End: 01-30-2022 Alcohol intake Current drinker of alcohol (finding) [facility] Start: 10-06-2019 History SDOH Social Connections Get Together 3 [facility] Start: 10-06-2019 History SDOH Food Worry 1 [facility] Start: 08-16-2020 End: 02-28-2023 Tobacco use and exposure Never used [facility] Start: 01-20-2022 End: 07-15-2023 Exposure to SARS-CoV-2 (event) Not sure [facility] Start: 01-30-2022 End: 04-02-2023 Cigarette pack-years [facility] Start: 01-30-2022 History SDOH Alcohol Comment topher [facility] Start: 10-02-2022 Alcohol Comment [facility] Start: 10-06-2019 End: 04-02-2023 Social connection and isolation panel [facility] Frequency of Communication with Friends and Family Not on file [facility] Start: 09-23-2017 Gender identity Identifies as female gender (finding) [facility] Start: 09-23-2017 Sexual orientation Heterosexual (finding) [facility] Tobacco smoking stat us NHIS Tobacco smoking consumption unknown [facility] Work Phone: Start: 02-28-2023 End: 09-16-2023 Alcohol intake Ex-drinker (finding) [facility] Start: 02-28-2023 Education 15 [facility] Start: 02-28-2023 Alcohol Comment Socially [facility] Start: 01-15-2023 [facility] Goals Date Patient Goal Desired Activity /State Personal health goal Clinical Notes 01-30-2022 to 09-25-2023 Piper Pelletier MA - 09/25/2023 10:16 AM ESTTelephone Encounter - Crys Garcia LPN - 09/20/2023 9:51 AM ESTAddendum Note - Yissel Ramon APRN.CNM - 09/16/2023 10:36 AM EST Note Date & Type Note Facility 09-25-2023 History of Present illness Narrative POPULATION HEALTH NAVIGATION OUTREACH Action/FYI Called and spoke with pt and confirmed tobacco classer. Patient Identified by Name and : YES, via phone Outreach Outcome/Action OB/PEDS field updated Did you use a PCP flex slot to schedule this appointment? N/A Reason for Outreach [place] Payer: Payor: AETNA / Plan: AETNA OPEN ACCESS AETNA SELECT / Product Type: EPO / Care Gap Reviewed:: N/A Reminder: Reminder note to check Health Maintenance for items below Health Maintenance items due: Hepatitis B Vaccine(1 of 3 - 3-dose series) Never done Covid-19 Vaccine(1) Never done Spirometry Never done Annual PCP Team Chronic Disease Visit Never done Influenza Vaccine(1) due on 04/05/2023 Depression Assessment Never done Navigation Signature: Piper Nava MA September 25, 2023 10:16 AM documented in this encounter [facility] 09-20-2023 Miscellaneous Notes Patient reports increased swelling in face, hands, legs X 2 days and headache not relieved by Tylenol. Discussed with Dr. Vila and patient is going to go to l&d documented in this encounter [facility] 09-16-2023 Miscellaneous Notes Addended by: YISSEL RAMON on: 09/16/2023 10:36 AM Modules accepted: Orders Heidy Low is a 33 year old female who presents at 36w5d for a routine visit. Just completed BPP and growth US- BPP 03/12 EFW 43%, SOM 21. Vertex position. Good movement. Seen in ED last week for cramping. Was told she was dehydrated and sent home. CE- closed. Has increased fluids. Blood glucose levels normal- no out of range levels except for low levels at times. Denies headache, visual changes, chest pain, shortness of breath, vaginal bleeding, leakage of fluid, or dysuria. Feeling well, no complaints. Size equal to dates. 43 lbs TWG. ASSESSMENT/PLAN: 1. Obesity affecting in third trimester, unspecified obesity type - ICD9: 649.13, ICD10: O99.213 (primary diagnosis) 2. complicated by previous gastric bypass, antepartum - ICD9: 649.23, ICD10: O99.840 - URINE OB DIP B/O - ROUTINE, GROUP B STREP PCR 3. 36 weeks gestation of - ICD9: V22.2, ICD10: Z3A.36 4. Supervision of high risk , antepartum - ICD9: V23.9, ICD10: O09.90 - GBS today - Vertex on US - Continue monitoring and recording blood glucose levels - Weekly NST and MARILU - Need to discuss recommendation of induction at 39 weeks at next visit PTL precautions reviewed. RTC in 1 week Yissel Ramon APRN.CNM documented in this encounter [facility] 09-16-2023 Instructions Yonas Rhodes Cma - 09/16/2023 9:09 AM EST SEQUENTIAL SCREENINGS The [facility] offers sequential screenings for women who are interested in screenings for chromosomal abnormalities and certain defects during a . The sequential screen combines ultrasound and blood tests to determine the risk of chromosomal abnormalities, including Down's Syndrome (Trisomy 21) and Trisomy 18, as well as open neural tube defects including spina bifida. Ultrasound examination is performed between 11 weeks and 13 weeks gestational age. Blood tests are drawn after the ultrasound and again later in the between 15 and 21 weeks gestational age. Please let your physician know if you are interested in this testing. It will require an appointment with our wet process technician. This is not an ultrasound performed by a physician in our office during a routine visit. SIGNS AND SYMPTOMS OF LABOR 1. Contractions every 10 minutes or more often 2. Clear, pink, or brownish fluid (water) leaking from vagina 3. Feeling that baby is pushing down, pressure 4. Low, dull backache 5. Cramps that feel like a period 6. Cramps with or without diarrhea If you notice any of the above symptoms, contact our office at [phone] and ask to speak with a nurse. After hours, you can call doctors registry at [phone] OR call [facility] at [phone] and ask to have the doctor reporting consultant paged. If you consider this an emergency, dial 9-1-1 or go to your nearest emergency department. NEED HELP? Are you dealing with a violent or abusive relationship? Are you a victim of rape or sexual assult? Call [facility] ([place]) 24 hour Crisis Hotline: 827.357.3700 or 199-450-0702. MANUAL Your Guide to a Healthy manual is now on-line. Visit [email or web address] ancyGuide to download your free copy documented in this encounter [facility] 07-25-2023 Note HNO ID: [id number] Author: Yonas Rhodes Cma Service: ? Author Type: ? Type: Progress Notes Filed: 07/25/2023 4:30 PM Note Text: Patient identified by name and date of . Heidy Low presents today for a vaccination of Tdap. Patient denies an allergy to latex: yes Patient denies a severe (life-threatening) allergy to a previous dose of Tdap, DTP, DTaP, DT or Td vaccine. Yes Patient denies history of epilepsy or neurological problems: Yes Patient is afebrile and denies being moderately or severely ill: Yes Patient denies history of Guillain-[place] Syndrome (a severe paralytic illness): Yes Tdap Adacel injection was given without incident. See immunizations for details of immunizations administered today. VIS sheet provided: Yes Provider Yissel Ramon APRN CNM was present in office at time of injection. Yonas Rhodes [facility] 07-16-2023 Evaluation + Plan note Associated Problem(s): Mild intermittent asthma without complication Symptomatic most days and nights. Reviewed usual tx. Using shared decision making, we decided to add ICS. Will refill albuterol inhaler and neb for prn use. Medication dosing and side effects reviewed. Return precautions reviewed. [facility] Work Phone: 07-16-2023 Miscellaneous Notes Associated Problem(s): Mild intermittent asthma without complication Symptomatic most days and nights. Reviewed usual tx. Using shared decision making, we decided to add ICS. Will refill albuterol inhaler and neb for prn use. Medication dosing and side effects reviewed. Return precautions reviewed. Associated Problem(s): Diarrhea Significantly improved. Return precautions reviewed. Associated Problem(s): Iron deficiency Reviewed labs. Improving. Will continue oral supplement. Return precautions reviewed. t documented in this encounter [facility] Work Phone: 07-16-2023 Evaluation + Plan note Associated Problem(s): Diarrhea Significantly improved. Return precautions reviewed. [facility] Work Phone: 07-16-2023 Evaluation + Plan note Associated Problem(s): Iron deficiency Reviewed labs. Improving. Will continue oral supplement. Return precautions reviewed. t [facility] Work Phone: 07-15-2023 History of Present illness Narrative Subjective Patient ID: Heidy Kwon is a 33 y.o. female who presents for follow up. HPI Diarrhea - much improved, now wearing CGM due to inability to tolerate oral gtt and has noticed that she has symptoms when her sugar drops <60, she has since been keeping healthy snacks readily available and is feeling better, she is now 28wks gestation Iron deficiency - improving with oral iron, she is tolerating without adverse effect, no constipation Asthma - seems to be worsening during steffanie past 1-2wks, struggling with wheezing throughout the day and waking her up at night, having to use her albuterol inhaler multiple times per day, also has nebulizer at home which helped, was managed on ICS as a teenager, she is otherwise feeling well and denies productive cough, sore throat, congestion, ear pain, fever, chills, other URI symptoms Review of Systems Constitutional: Negative for chills and fever. Respiratory: Positive for cough and wheezing. Cardiovascular: Negative for chest pain and palpitations. Skin: Negative for rash. Psychiatric/Behavioral: Negative for dysphoric mood. The patient is not nervous/anxious. Objective There were no vitals taken for this visit. - virtual visit Physical Exam Constitutional: Appearance: Normal appearance. HENT: Head: Normocephalic. Eyes: General: No scleral icterus. Conjunctiva/sclera: Conjunctivae normal. Pulmonary: Effort: Pulmonary effort is normal. No respiratory distress. Musculoskeletal: General: Normal range of motion. Neurological: Mental Status: She is alert. Psychiatric: Mood and Affect: Mood normal. Behavior: Behavior normal. Assessment/Plan Problem List Items Addressed This Visit ICD-10-CM Mild intermittent asthma without complication - Primary J45.20 Symptomatic most days and nights. Reviewed usual tx. Using shared decision making, we decided to add ICS. Will refill albuterol inhaler and neb for prn use. Medication dosing and side effects reviewed. Return precautions reviewed. Relevant Medications albuterol 90 mcg/actuation inhaler albuterol 2.5 mg /3 mL (0.083 %) nebulizer solution fluticasone (Flovent) 110 mcg/actuation inhaler Iron deficiency E61.1 Reviewed labs. Improving. Will continue oral supplement. Return precautions reviewed. t Diarrhea R19.7 Significantly improved. Return precautions reviewed. Follow up in 1mo for recheck, sooner if needed. This visit was completed virtually due to the restrictions of the COVID-19 pandemic. All issues as below were discussed and addressed, but no physical exam was performed. If it was felt that the patient should be evaluated in clinic, then they were directed there. The patient verbally consented to visit. documented in this encounter [facility] Work Phone: 07-03-[address] greer called. Reassuring fht's, audible movement, no contractions tracing or palpated. Pt denying any discomfort or concerns. Pt would like to go home. Discharge orders received. Dr greer on unit. Informed of pt arrival and presenting c/o per jesica granados rn., Md to bedside to see pt. Rn placing monitors on pt, and pt describes fall to dr greer. Pt did not fall or hit abdomen. Pt presents to L&D for c/o a fall. Pt states she was carrying several boxes and stumbled. Pt reportedly fell to her hands and knees. Pt did not sustain any hit or trauma to her abd. Pt states she is having some right sided muscular discomfort and wanted to make sure the baby is ok. Pt has an anterior placenta and does not feel a lot of movement to begin with. Pt denies leaking or bleeding. Denies cramping or kelli. documented in this encounter [facility] 07-03-[address] greer called. Reassuring fht's, audible movement, no contractions tracing or palpated. Pt denying any discomfort or concerns. Pt would like to go home. Discharge orders received. [facility] 07-03-[address] greer on unit. Informed of pt arrival and presenting c/o per a roberta tyson Md to bedside to see pt. Rn placing monitors on pt, and pt describes fall to dr greer. Pt did not fall or hit abdomen. [facility] 07-03-2023 Nurse Note Pt presents to L&D for c/o a fall. Pt states she was carrying several boxes and stumbled. Pt reportedly fell to her hands and knees. Pt did not sustain any hit or trauma to her abd. Pt states she is having some right sided muscular discomfort and wanted to make sure the baby is ok. Pt has an anterior placenta and does not feel a lot of movement to begin with. Pt denies leaking or bleeding. Denies cramping or kelli. [facility] 06-20-2023 Miscellaneous Notes Heidy Low is a 33 year old female who presents at 24w1d Estimated Date of Delivery: 10/09/23 for a routine visit. Still not feeling any movement. Stated has anterior placenta. Discussed glucose monitoring due to hx of gastric bypass. Requesting continuous monitor prescription. Rx printed for patient. Denies headache, visual changes, chest pain, shortness of breath, vaginal bleeding, leakage of fluid, or dysuria. Feeling well, no complaints. Size appropriate for dates. 33 lbsTWG. PTL precautions reviewed. RTC in 4 weeks for MARILU with lab work. Yissel Ramon APRN.CNM documented in this encounter [facility] 06-20-2023 Instructions Piper Delacruz MA - 06/20/2023 2:18 PM EST SEQUENTIAL SCREENINGS The [facility] offers sequential screenings for women who are interested in screenings for chromosomal abnormalities and certain defects during a . The sequential screen combines ultrasound and blood tests to determine the risk of chromosomal abnormalities, including Down's Syndrome (Trisomy 21) and Trisomy 18, as well as open neural tube defects including spina bifida. Ultrasound examination is performed between 11 weeks and 13 weeks gestational age. Blood tests are drawn after the ultrasound and again later in the between 15 and 21 weeks gestational age. Please let your physician know if you are interested in this testing. It will require an appointment with our wet process technician. This is not an ultrasound performed by a physician in our office during a routine visit. SIGNS AND SYMPTOMS OF LABOR 1. Contractions every 10 minutes or more often 2. Clear, pink, or brownish fluid (water) leaking from vagina 3. Feeling that baby is pushing down, pressure 4. Low, dull backache 5. Cramps that feel like a period 6. Cramps with or without diarrhea If you notice any of the above symptoms, contact our office at [phone] and ask to speak with a nurse. After hours, you can call doctors registry at [phone] OR call [facility] at [phone] and ask to have the doctor reporting consultant paged. If you consider this an emergency, dial or go to your nearest emergency department. NEED HELP? Are you dealing with a violent or abusive relationship? Are you a victim of rape or sexual assult? Call [facility] ([place]) 24 hour Crisis Hotline: 667.705.1672 or 102-706-0038. MANUAL Your Guide to a Healthy manual is now on-line. Visit [email or web address] ancyGuide to download your free copy documented in this encounter [facility] 06-16-2023 Evaluation + Plan note Associated Problem(s): Current mild episode of major depressive disorder without prior episode (CMS/HCC) Continue close follow up with psychiatry as previously scheduled. [facility] Work Phone: 06-16-2023 Miscellaneous Notes Associated Problem(s): Current mild episode of major depressive disorder without prior episode (CMS/HCC) Continue close follow up with psychiatry as previously scheduled. Associated Problem(s): Anxiety Following with psychiatry. Transitioning from Lexapro -> Prozac. Associated Problem(s): Diarrhea X3wk after no apparent trigger. Gradually starting to improve. ED, L&D, previous PCP, obgyn evals reviewed. Stool pathogen panel reviewed and neg. Will repeat labs and will follow up with results. Reviewed conservative management and recommend continuation of bland/BRAT diet to be advanced as tolerated. Reiterated importance of po hydration. Given persistent symptoms as well as questionable urine during ED eval, will tx with antibiotic to cover possible bacterial contribution. Medication dosing and side effects reviewed. Follow up in 1mo for recheck, sooner if needed. Return precautions reviewed. Associated Problem(s): Iron deficiency Reviewed last iron panel - elevated iron with low ferritin. Will repeat and will follow up with results. documented in this encounter [facility] Work Phone: 06-16-2023 Evaluation + Plan note Associated Problem(s): Anxiety Following with psychiatry. Transitioning from Lexapro -> Prozac. [facility] Work Phone: 06-16-2023 Evaluation + Plan note Associated Problem(s): Diarrhea X3wk after no apparent trigger. Gradually starting to improve. ED, L&D, previous PCP, obgyn evals reviewed. Stool pathogen panel reviewed and neg. Will repeat labs and will follow up with results. Reviewed conservative management and recommend continuation of bland/BRAT diet to be advanced as tolerated. Reiterated importance of po hydration. Given persistent symptoms as well as questionable urine during ED eval, will tx with antibiotic to cover possible bacterial contribution. Medication dosing and side effects reviewed. Follow up in 1mo for recheck, sooner if needed. Return precautions reviewed. [facility] Work Phone: 06-16-2023 Evaluation + Plan note Associated Problem(s): Iron deficiency Reviewed last iron panel - elevated iron with low ferritin. Will repeat and will follow up with results. [facility] Work Phone: 06-13-2023 History of Present illness Narrative Subjective Patient ID: Heidy Kwon is a 33 y.o. female who presents to establish care. Previous provider Maddie Barber. Diarrhea daily x3 weeks. Cut back on fish oil, has gotten a little better. Psychiatry weaning off Lexapro and changing to Prozac. HPI Anx/dep - chronic but worsened after passed 3yrs ago, was started on Lexapro which she has taken for about 2yrs, anxiety flared again recently during early , is now following with therapist (Telemind through insurance virtually) as well as psychiatry (also virtually), in the process of transitioning from Lexapro to Prozac Diarrhea - persistent x3wks, started during a day trip to [place], seemed to start out of nowhere, no unusual food, no sick contacts, no new medications, otherwise asymptomatic, started on a Saturday, called PCP Saturday and was instructed to go to ED in [place] (seeing obgyn in [place]), was discharged home after unrevealing workup and was told she potentially had UTI per pt report, woke up the following day diaphoretic and feeling unwell, went to [facility] ED and was transferred to L&D where workup there was unrevealing and was discharged, diarrhea has been persistent since that time, maybe starting to gradually improved, has been following bland/BRAT diet, trying her best to stay hydrated, has been treated with otc hemorrhoid cream which has provided relief of mucosal/skin irritation, has tried Imodium which did not help, was having 6 episodes per day and is now down to about 3, all watery with no formed stool between, symptoms woke her from sleep this morning at 3am, stool pathogen panel done 06/06/2023 negative, she denies melena/hematochezia, fever, chills, dysuria, n/v, does note that she had been taking fish oil for DHA because it was not in her , last dose of fish oil was 3 days ago Iron deficiency - notes hx and is s/p bariatric surgery 2019, last labs significant for low ferritin and elevated iron, she does note easy bruising since early Cervical Cancer Screening: obfredo pap neg 03/04/2023, due 02/2026 Breast Cancer Screening: plan to start mammo at age 40 Osteoporosis Screening: plan to start at age 65 Colon Cancer Screening: no fhx, plan to start at age 45 Tobacco: never Alcohol: denies Recreational Drugs: denies Immunizations: waiting, will consider influenza at next visit Review of Systems Constitutional: Negative for chills and fever. Respiratory: Negative for cough and shortness of breath. Cardiovascular: Negative for chest pain and palpitations. Gastrointestinal: Positive for diarrhea. Negative for blood in stool, constipation, nausea and vomiting. Skin: Negative for rash. Psychiatric/Behavioral: Negative for dysphoric mood. The patient is not nervous/anxious. Objective BP 106/62 Pulse 64 Ht 1.651 m (5' 5 ) Wt 114 kg (251 lb 3.2 oz) BMI 41.80 kg/m Physical Exam Vitals reviewed. Constitutional: General: She is not in acute distress. Appearance: Normal appearance. HENT: Head: Normocephalic and atraumatic. Eyes: General: No scleral icterus. Conjunctiva/sclera: Conjunctivae normal. Cardiovascular: Rate and Rhythm: Normal rate and regular rhythm. Heart sounds: No murmur heard. Pulmonary: Effort: Pulmonary effort is normal. No respiratory distress. Breath sounds: Normal breath sounds. Abdominal: General: Bowel sounds are normal. There is no distension. Palpations: Abdomen is soft. Tenderness: There is no abdominal tenderness. There is no guarding or rebound. Musculoskeletal: General: No swelling or deformity. Cervical back: Normal range of motion and neck supple. Skin: General: Skin is warm and dry. Findings: No rash. Neurological: General: No focal deficit present. Mental Status: She is alert. Psychiatric: Mood and Affect: Mood normal. Behavior: Behavior normal. Assessment/Plan Problem List Items Addressed This Visit ICD-10-CM Iron deficiency E61.1 Reviewed last iron panel - elevated iron with low ferritin. Will repeat and will follow up with results. Diarrhea - Primary R19.7 X3wk after no apparent trigger. Gradually starting to improve. ED, L&D, previous PCP, obgyn evals reviewed. Stool pathogen panel reviewed and neg. Will repeat labs and will follow up with results. Reviewed conservative management and recommend continuation of bland/BRAT diet to be advanced as tolerated. Reiterated importance of po hydration. Given persistent symptoms as well as questionable urine during ED eval, will tx with antibiotic to cover possible bacterial contribution. Medication dosing and side effects reviewed. Follow up in 1mo for recheck, sooner if needed. Return precautions reviewed. Relevant Medications amoxicillin (Amoxil) 875 mg tablet Other Relevant Orders CBC and Auto Differential (Completed) Comprehensive Metabolic Panel (Completed) Iron and TIBC (Completed) Ferritin (Completed) Urinalysis with Reflex Microscopic and Culture Follow Up In Primary Care - Established Microscopic Only, Urine (Completed) Urine Culture (Completed) Current mild episode of major depressive disorder without prior episode (CMS/HCC) F32.0 Continue close follow up with psychiatry as previously scheduled. Anxiety F41.9 Following with psychiatry. Transitioning from Lexapro -> Prozac. Follow up in 1mo for recheck, sooner if needed. documented in this encounter [facility] Work Phone: 06-03-2023 Miscellaneous Notes This is probably not something studied in , but unlikely to be of harm to baby other than making patient feel unwell. 21w5d today documented in this encounter [facility] 05-28-2023 History of Present illness Narrative [id number] @ 21 weeks gestation presented to L&D triage and was evaluated by RN/staff. I personally reviewed the FHT and toco strip. FHT appropriate for EGA and no contractions noted. Pt not in labor,clinically stable and was discharged to home with instruction to call her primary OB ([facility]) and schedule appointment with them. She verbalized understanding. I agree with RN plan of care documented in this encounter [facility] 05-28-2023 Miscellaneous Notes Discussed discharge with patient. Encouraged to follow-up with OB with concerns. Patient states understanding, patient ambulated off unit. Dr. Kerr called back in, informed of labs nearly identical to yesterday's labs from [facility]. Dr. Kerr states patient may discharge home and follow-up with Dr. Dr. Kerr paged again Dr. Kerr paged Dr. Kerr on unit, informed of patient arrival, c/o RUQ pain that is worse when eating or drinking that she was seen in [facility] yesterday for. Informed Dr. Kerr that pt had labs and imaging done yesterday and we have those records. Informed that pt is afebrile and vitals stable. Dr. Kerr orders repeat CBC, CMP, Amylase, and Lipase Patient arrived to unit with s/o and family with c/o RUQ pain that has been present since Saturday. Triage assessment completed documented in this encounter [facility] 05-28-2023 Nurse Note Discussed discharge with patient. Encouraged to follow-up with OB with concerns. Patient states understanding, patient ambulated off unit. [facility] 05-28-[address] Kerr called back in, informed of labs nearly identical to yesterday's labs from [facility]. Dr. Kerr states patient may discharge home and follow-up with [facility] 05-28-[address] Kerr paged again [facility] 05-28-[address] Kerr paged T [facility] 05-28-[address] Kerr on unit, informed of patient arrival, c/o RUQ pain that is worse when eating or drinking that she was seen in [facility] yesterday for. Informed Dr. Kerr that pt had labs and imaging done yesterday and we have those records. Informed that pt is afebrile and vitals stable. Dr. Kerr orders repeat CBC, CMP, Amylase, and Lipase [facility] 05-28-2023 Nurse Note Patient arrived to unit with s/o and family with c/o RUQ pain that has been present since Saturday. Triage assessment completed [facility] 05-27-2023 Miscellaneous Notes Did PCP call ED so she doesn't go to L&D, if no can you please have them eval her first in ED. Thank you, Sherly Collier APRN.CNM Patient 20w5d calling to notify the office that she was seen by her PCP d/t not feeling well and PCP has sent her to [facility] ER to be evaluated for her gallbladder. FYI. Taina Aggarwal RN documented in this encounter [facility] 05-24-2023 Miscellaneous Notes Anatomy ultrasound reviewed. No abnormalities identified. Follow up as clinically indicated. Please place copy in ob chart. Ashely Kim MD documented in this encounter [facility] 05-23-2023 Miscellaneous Notes KJ - No VB/LOF/ctxs. No FM yet. She reports increased anxiety that is affecting her life. She is scheduling to start counseling soon. A&P: Anatomy US today Anxiety - continue lexapro and start counseling. Discussed R/B/A of other medication options and patient will proceed with buspar as she has done well on it in the past. Hong Castellano MD documented in this encounter [facility] 05-23-2023 Instructions s Farrah Wakefield - 05/23/2023 2:47 PM EDT SEQUENTIAL SCREENINGS The [facility] offers sequential screenings for women who are interested in screenings for chromosomal abnormalities and certain defects during a . The sequential screen combines ultrasound and blood tests to determine the risk of chromosomal abnormalities, including Down's Syndrome (Trisomy 21) and Trisomy 18, as well as open neural tube defects including spina bifida. Ultrasound examination is performed between 11 weeks and 13 weeks gestational age. Blood tests are drawn after the ultrasound and again later in the between 15 and 21 weeks gestational age. Please let your physician know if you are interested in this testing. It will require an appointment with our wet process technician. This is not an ultrasound performed by a physician in our office during a routine visit. SIGNS AND SYMPTOMS OF LABOR 1. Contractions every 10 minutes or more often 2. Clear, pink, or brownish fluid (water) leaking from vagina 3. Feeling that baby is pushing down, pressure 4. Low, dull backache 5. Cramps that feel like a period 6. Cramps with or without diarrhea If you notice any of the above symptoms, contact our office at [phone] and ask to speak with a nurse. After hours, you can call doctors registry at [phone] OR call [facility] at [phone] and ask to have the doctor reporting consultant paged. If you consider this an emergency, dial --1 or go to your nearest emergency department. NEED HELP? Are you dealing with a violent or abusive relationship? Are you a victim of rape or sexual assult? Call [facility] ([place]) 24 hour Crisis Hotline: 459.335.5267 or 130-726-7122. MANUAL Your Guide to a Healthy manual is now on-line. Visit [email or web address] to download your free copy documented in this encounter [facility] 05-21-2023 Miscellaneous Notes FMLA paperwork completed and faxed to employer, scanned into EMR and filed in nurses station. Erin Mcdaniels LPN Spoke with pt and she is needing intermittent FMLA to attend all appointments. Form completed and placed on providers desk for signature. Erin Mcdaniels LPN FMLA paperwork completed and to Bo's mailbox to be completed. Abigail Ann RN Heidy documented in this encounter [facility] 04-16-2023 Miscellaneous Notes Pt viewed mychart message with directives, no further message returned. Erin Mcdaniels LPN I do not order B12 injections- this should come from PCP or bariatric surgeon. She should follow with surgeon yearly as there are certain labs they like to follow on routine basis. Her B12 is WNL according to labs so I would say she does not need any injections- just continue to take her routine supplement at this time. Patient notified. Labs were ordered by her PCP due to her c/o bruising. She has not been in contact with her bariatric surgeon in 2 years. Kristina Porter RN Does not need IV iron at this time. Labs ordered by her bariatric surgeon should be managed by them. B12 injections need to managed by her surgeon. These were not ordered by our office. Erin Mcdaniels LPN' Are these labs followed by her bariatric surgeon or are these labs that we ordered? 14w2d Hx of gastric bypass. Had labs drawn with her PCP at [facility]. The are in Care Every Where. Patient was seen with c/o bruising. Patient asking if she needs Vitamin B12 injections and IV iron transfusions due to her Vitamin B12 and Ferritin levels being low. Kristina Porter RN documented in this encounter [facility] 04-11-2023 Evaluation + Plan note Associated Problem(s): Acquired hypothyroidism Currently at Levothyroxine 50 mcg daily Last TSH was 1.6 [facility] Work Phone: 04-11-2023 Evaluation + Plan note Associated Problem(s): Mild intermittent asthma without complication Albuterol inhaler as needed. [facility] Work Phone: 04-11-2023 Evaluation + Plan note Associated Problem(s): Anxiety Currently on Lexapro 20 mg daily- refilled [facility] Work Phone: 04-11-2023 Miscellaneous Notes Associated Problem(s): Acquired hypothyroidism Currently at Levothyroxine 50 mcg daily Last TSH was 1.6 Associated Problem(s): Mild intermittent asthma without complication Albuterol inhaler as needed. Associated Problem(s): Anxiety Currently on Lexapro 20 mg daily- refilled documented in this encounter [facility] Work Phone: 04-11-2023 History of Present illness Narrative Est Care with PCP med refills 14 weeks Subjective Patient ID: Heidy Kwon is a 33 y.o. female who presents for Establish Care and Med Refill. HPI NPV Heidy has history of hypothyroid, anxiety/depression, asthma, anemia, and s/p bariatric surgery 3 years ago. OBGYN: [facility] at [facility]. She is currently 14 weeks . Labs done on 04/02/23 at [facility]: Recent A1c: 4.8, TSH 1.6 Bruising easily: she reports she has noticed she has been bruising more than normal. Last CBC was normal. But has history of anemia, and history of bariatric surgery. She is requesting her levels be checked of vitamin and iron studies. If we need to refer we discussed [facility] Hypothyroid: TSH 1.6 done at her Obs office. She was recently increased to 50 mcg of levothyroxine. Asthma: controlled. Does get a flare up of bronchitis with change in season to fall. We discussed checking with her OB to determine what OTC medications she will be able to take for symptoms when this happens. Review of Systems Constitutional: Negative for fatigue. Respiratory: Negative for chest tightness and shortness of breath. Cardiovascular: Negative for chest pain, palpitations and leg swelling. Gastrointestinal: Negative for abdominal pain, blood in stool, constipation, diarrhea, nausea and vomiting. Genitourinary: Negative for dysuria. Musculoskeletal: Negative for arthralgias and myalgias. Skin: Negative for color change. Neurological: Negative for dizziness, light-headedness and headaches. Hematological: Bruises/bleeds easily. Psychiatric/Behavioral: Negative. Objective BP 118/60 Pulse 64 Ht 1.651 m (5' 5 ) Wt 108 kg (239 lb 2 oz) BMI 39.79 kg/m Physical Exam Vitals and nursing note reviewed. Constitutional: Appearance: Normal appearance. HENT: Head: Normocephalic and atraumatic. Cardiovascular: Rate and Rhythm: Normal rate and regular rhythm. Pulses: Normal pulses. Heart sounds: Normal heart sounds. Pulmonary: Effort: Pulmonary effort is normal. Breath sounds: Normal breath sounds. Abdominal: General: Bowel sounds are normal. Palpations: Abdomen is soft. Musculoskeletal: General: Normal range of motion. Cervical back: Normal range of motion. Skin: General: Skin is warm and dry. Neurological: General: No focal deficit present. Mental Status: She is alert and oriented to person, place, and time. Psychiatric: Mood and Affect: Mood normal. Behavior: Behavior normal. Thought Content: Thought content normal. Judgment: Judgment normal. Assessment/Plan Problem List Items Addressed This Visit Status post gastric bypass for obesity Relevant Orders Ferritin Iron and TIBC Vitamin B12 Folate Vitamin B2, Whole Blood Anxiety Currently on Lexapro 20 mg daily- refilled Relevant Medications escitalopram (Lexapro) 20 mg tablet Acquired hypothyroidism Currently at Levothyroxine 50 mcg daily Last TSH was 1.6 Relevant Medications levothyroxine (Synthroid, Levoxyl) 50 mcg tablet Class 2 severe obesity due to excess calories with serious comorbidity and body mass index (BMI) of 39.0 to 39.9 in adult ([facility]) Other Visit Diagnoses Encounter to establish care - Primary Follow up in 9 months after her , or sooner as needed. documented in this encounter [facility] Work Phone: 04-02-2023 Miscellaneous Notes RR- No C/o. MFM consult done today. PN labs. F/u in 4 weeks or prn. Ashely Kim MD documented in this encounter [facility] 04-02-2023 Note HNO ID: [id number] Author: Neri Cannon MD Service: ? Author Type: Physician Type: Progress Notes Filed: 04/02/2023 11:08 AM Note Text: OBSTETRICS MATERNAL MEDICINE CONSULT SERVICE DATE: April 02, 2023 SERVICE TIME: 0930 REQUESTING PROVIDER: Yissel Ramon CNM Subjective HISTORY OF THE PRESENT ILLNESS: The patient is a 33 year old female, , who is at 12w6d with an VERONA of 10/09/2023, by Last Menstrual Period dating method. This was conceived with Clomid and timed intercourse. She presents for first trimester ultrasound and consultation due to her history of gastric bypass/Tracey-en-Y. She has been feeling overall fine this , some fatigue, constipation, and intermittent right abdominal pain (none currently). She previously BMI 59 kg/m2, underwent laporascopic Tracey-en-Y bypass procedure at [facility] 02/25/2020. Her current BMI is 39 kg/m2. At time of surgery her weight was 331 lbs, current weight is 238lbs. She has not recently had nutrition labs, does not recall last time they were checked. She currently take vitamin without iron and fish oil supplement. She has no history of diabetes. Hgb A1c in 10/2022 was 5.2%, early screening A1c is pending. No history of DANIEL, screened negative prior to bypass surgery and no signs/symptoms of sleep apnea. She takes Synthroid for hypothyroidism (started 2018), most recent TSH screening in 2022 at [facility] normal range. She also has history of mild intermittent or exercise induced asthma (albuterol PRN only uses every few months), anxiety/depression currently controlled with Lexapro (transitioning care to new PCP). She did feel a flare of depression symptoms around 8 weeks this but overall feels safe and controlled, she is planning to ask PCP about a dose increase of lexapro at an upcoming visit. HISTORY REVIEW PAST MEDICAL HISTORY Diagnosis Date Anemia Asthma Chronic kidney disease Depression and anxiety History of PCOS Hypothyroidism Infertility counseling Infertility, female PAST SURGICAL HISTORY Procedure Laterality Date DANDC, DIAG AND/OR THERAPEUTIC HSG LAP GASTRIC BYPASS/TRACEY-EN-Y FAMILY HISTORY Problem Relation Age of Onset Obesity Mother Psychiatry Father Obesity Sister Diabetes Maternal Grandmother Lung Cancer Maternal Grandfather Lung Cancer Paternal Grandmother Heart Paternal Grandfather Stroke Paternal Grandfather Heart Attack Paternal Grandfather Social History Tobacco Use Smoking status: Never Smokeless tobacco: Never Vaping Use Vaping Use: Never used Substance Use Topics Alcohol use: Not Currently Comment: Socially Drug use: Never Obstetric History T0 L0 SAB0 IAB0 Ectopic0 Multiple0 Live Births0 Name of Baby 1: Not recorded Date: Not recorded GA: Not recorded Delivery: Not recorded Apgar1: Not recorded Apgar5: Not recorded Living: Not recorded ALLERGIES Allergen Reactions Nsaids (Non-Steroid* Intolerance Unable to take due to bypass surgery-can take IV but not PO Zithromax [Azithrom* GI Upset PRIOR TO ADMISSION MEDICATIONS: Current Outpatient Medications Medication Instructions ALBUTEROL INHALATION INHALATION escitalopram oxalate (LEXAPRO) 20 mg, ORAL levothyroxine (SYNTHROID) 50 mcg, ORAL nebulizer accessories (NEBULIZER MISC) Miscell. (Med.Supl.;Non-Drugs), Albuterol in nebulizer PRN [id number] oil-[id number] 150-500-200 mg-mg-unit cpDR ORAL [id number] tab 1 tablet, ORAL, DAILY, With dha and folic acid as covered by insurance REVIEW OF SYSTEMS: The remainder of the review of systems is negative. Objective LAST VITALS: BP 100/64 Wt 238 lb 12.8 oz (108.3 kg) LMP 01/02/2023 (Exact Date) BMI 39.13 kg/m? PHYSICAL EXAM: General: WD, WN HEENT: NC/AT, sclera white, pupils equal Lungs: normal respiratory effort Abdomen: soft, nontender during US exam FHT: Present on US LABS Diagnostic tests reviewed for today's visit: relevant labs to today's consultation as also noted in HPI Impression/Recommendations 33 year old EGA:12w6d with history Tracey-en-Y, obesity with BMI 39 kg/m2, history mild intermittent asthma and anxiety/depression controlled on medication. people with prior Tracey-en-Y bypass are at increased risk of malabsorption of multiple vitamins and micronutrients, including vitamin D, iron, B-vitamins, zinc, and folate (among others). People with a Tracey-en-Y bypass procedure are also at risk for dumping syndrome, which may be precipitated by an oral GTT, and as such may require serial capillary glucose monitoring for assessment of GDM. Lastly, in there may be a delay in the diagnosis of bariatric-related operative complications, including anastomotic leaks, bowel obstructions, internal hernias or ventral hernias. As such, gastrointestinal symptoms such as nausea, vomiting, and abdomi (more content not included)... [facility] 04-02-2023 Instructions Lexie Garza Ma - 04/02/2023 11:01 AM EDT SEQUENTIAL SCREENINGS The [facility] offers sequential screenings for women who are interested in screenings for chromosomal abnormalities and certain defects during a . The sequential screen combines ultrasound and blood tests to determine the risk of chromosomal abnormalities, including Down's Syndrome (Trisomy 21) and Trisomy 18, as well as open neural tube defects including spina bifida. Ultrasound examination is performed between 11 weeks and 13 weeks gestational age. Blood tests are drawn after the ultrasound and again later in the between 15 and 21 weeks gestational age. Please let your physician know if you are interested in this testing. It will require an appointment with our wet process technician. This is not an ultrasound performed by a physician in our office during a routine visit. SIGNS AND SYMPTOMS OF LABOR 1. Contractions every 10 minutes or more often 2. Clear, pink, or brownish fluid (water) leaking from vagina 3. Feeling that baby is pushing down, pressure 4. Low, dull backache 5. Cramps that feel like a period 6. Cramps with or without diarrhea If you notice any of the above symptoms, contact our office at [phone] and ask to speak with a nurse. After hours, you can call doctors registry at [phone] OR call [facility] at [phone] and ask to have the doctor reporting consultant paged. If you consider this an emergency, dial 3-1-0 or go to your nearest emergency department. NEED HELP? Are you dealing with a violent or abusive relationship? Are you a victim of rape or sexual assult? Call [facility] 24 hour Crisis Hotline: 609.428.7575 or 163-120-2244. MANUAL Your Guide to a Healthy manual is now on-line. Visit [email or web address] to download your free copy documented in this encounter [facility] 04-02-2023 History of Present illness Narrative OBSTETRICS MATERNAL MEDICINE CONSULT SERVICE DATE: April 02, 2023 SERVICE TIME: 929 REQUESTING PROVIDER: Yissel Ramon CNM Subjective HISTORY OF THE PRESENT ILLNESS: The patient is a 33 year old female, , who is at 12w6d with an VERONA of 10/09/2023, by Last Menstrual Period dating method. This was conceived with Clomid and timed intercourse. She presents for first trimester ultrasound and consultation due to her history of gastric bypass/Tracey-en-Y. She has been feeling overall fine this , some fatigue, constipation, and intermittent right abdominal pain (none currently). She previously BMI 59 kg/m2, underwent laporascopic Tracey-en-Y bypass procedure at [facility] 02/25/2020. Her current BMI is 39 kg/m2. At time of surgery her weight was 331 lbs, current weight is 238lbs. She has not recently had nutrition labs, does not recall last time they were checked. She currently take vitamin without iron and fish oil supplement. She has no history of diabetes. Hgb A1c in 10/2022 was 5.2%, early screening A1c is pending. No history of DANIEL, screened negative prior to bypass surgery and no signs/symptoms of sleep apnea. She takes Synthroid for hypothyroidism (started 2018), most recent TSH screening in 2022 at [facility] normal range. She also has history of mild intermittent or exercise induced asthma (albuterol PRN only uses every few months), anxiety/depression currently controlled with Lexapro (transitioning care to new PCP). She did feel a flare of depression symptoms around 8 weeks this but overall feels safe and controlled, she is planning to ask PCP about a dose increase of lexapro at an upcoming visit. HISTORY REVIEW PAST MEDICAL HISTORY Diagnosis Date Anemia Asthma Chronic kidney disease Depression and anxiety History of PCOS Hypothyroidism Infertility counseling Infertility, female PAST SURGICAL HISTORY Procedure Laterality Date D&C, DIAG AND/OR THERAPEUTIC HSG LAP GASTRIC BYPASS/TRACEY-EN-Y FAMILY HISTORY Problem Relation Age of Onset Obesity Mother Psychiatry Father Obesity Sister Diabetes Maternal Grandmother Lung Cancer Maternal Grandfather Lung Cancer Paternal Grandmother Heart Paternal Grandfather Stroke Paternal Grandfather Heart Attack Paternal Grandfather Social History Tobacco Use Smoking status: Never Smokeless tobacco: Never Vaping Use Vaping Use: Never used Substance Use Topics Alcohol use: Not Currently Comment: Socially Drug use: Never Obstetric History T0 L0 SAB0 IAB0 Ectopic0 Multiple0 Live Births0 Name of Baby 1: Not recorded Date: Not recorded GA: Not recorded Delivery: Not recorded Apgar1: Not recorded Apgar5: Not recorded Living: Not recorded ALLERGIES Allergen Reactions Nsaids (Non-Steroid* Intolerance Unable to take due to bypass surgery-can take IV but not PO Zithromax [Azithrom* GI Upset PRIOR TO ADMISSION MEDICATIONS: Current Outpatient Medications Medication Instructions ALBUTEROL INHALATION INHALATION escitalopram oxalate (LEXAPRO) 20 mg, ORAL levothyroxine (SYNTHROID) 50 mcg, ORAL nebulizer accessories (NEBULIZER MISC) Miscell. (Med.Supl.;Non-Drugs), Albuterol in nebulizer PRN [id number] oil-D3 150-500-200 mg-mg-unit cpDR ORAL Sopeaati-Oy-Puq-Fe-FA tab 1 tablet, ORAL, DAILY, With dha and folic acid as covered by insurance REVIEW OF SYSTEMS: The remainder of the review of systems is negative. Objective LAST VITALS: BP 100/64 Wt 238 lb 12.8 oz (108.3 kg) LMP 01/02/2023 (Exact Date) BMI 39.13 kg/m PHYSICAL EXAM: General: WD, WN HEENT: NC/AT, sclera white, pupils equal Lungs: normal respiratory effort Abdomen: soft, nontender during US exam FHT: Present on US LABS Diagnostic tests reviewed for today's visit: relevant labs to today's consultation as also noted in HPI Impression/Recommendations 33 year old EGA:12w6d with history Tracey-en-Y, obesity with BMI 39 kg/m2, history mild intermittent asthma and anxiety/depression controlled on medication. people with prior Tracey-en-Y bypass are at increased risk of malabsorption of multiple vitamins and micronutrients, including vitamin D, iron, B-vitamins, zinc, and folate (among others). People with a Tracey-en-Y bypass procedure are also at risk for dumping syndrome, which may be precipitated by an oral GTT, and as such may require serial capillary glucose monitoring for assessment of GDM. Lastly, in there may be a delay in the diagnosis of bariatric-related operative complications, including anastomotic leaks, bowel obstructions, internal hernias or ventral hernias. As such, gastrointestinal symptoms such as nausea, vomiting, and abdominal pain, which occur commonly during , should be thoroughly evaluated in patients who have had bariatric surgery. Recommend serial evaluation of micronutritent levels in , with replacement/supplementation as needed. Also consider nutrition consultation during . She is at increased risk for insulin resistance in due to obesity and PCOS. She will also be at increased risk for hypertensive disorders of given BMI and parity, reports cannot take NSAIDs, will need to be monitored closely for hypertension. Baseline urine protein level may help if hypertensive complications occur third trimester. A previous note fletcher history of renal disease however patient does not give history of kidney disease and most recent serum creatinine was 0.80 mg/dL in 01/2023. --Assessment of nutrition labs (vitamin B12, folate, CBC, CMP, iron, ferritin, calcium, and vitamin D) every trimester --Continue vitamin supplementation for vitamin B vitamins including folic acid and vitamin C and Zinc. --If B12 is less than 400, need to supplement (500 mcg per day minimum) --If Vit D is less than 30, consider 50,000 IU Vit D2 for 6 weeks, re-check --IV iron if indicated --Consider nutrition consultation --Consider baseline urine P/C --Recommended TWG 11-20lbs --Baby aspirin declined due to bypass history --Early A1c --Will require GDM screening -28, recommend 1-2 weeks of accu-checks given history dumping symptoms in past --Detailed anatomy ultrasound second trimester --Due to pre- BMI recommend serial growth ultrasounds at 32 weeks with weekly NST at 36 weeks Problem List Items Addressed This Visit Endocrinology History of hypothyroidism - Primary Overview Patient diagnosed with hypothyroidism in 2019 and treated by Stormy Webber her PCP. 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, antepartum Overview Long history of inability to conceive, this was clomid/timed intercourse conception, reports history PCOS, prediabetes which resolved after bypass complicated by previous gastric bypass, antepartum Overview Laparoscopic Tracey-en-Y 02/25/2020 at [facility] -Screening Hgb A1c, accu-checks 2 weeks between 26-28 weeks -Nutrition labs 2nd and third trimester supplement as needed -Continue PNV will likely need IV iron (does not tolerate PO due to constipation) -Consider nutrition consult -Serial growth ultrasounds at 32 weeks -Weekly NST 36w (BMI) Obesity in Overview Pregravid BMI 36 TWG recommended 11-20lbs Baby aspirin declined Early A1c then GDM screening 26-28 weeks Detailed anatomy 2nd trimester Serial growth ultrasounds 32 weeks NST weekly 36 weeks Other History of depression Overview History of anxiety/depression that she said she had experienced since age 17 but was not diagnosed until after her first . She is currently on Lexapro treated by her PCP Stormy Webber in [place], transitioning to Dr Kessler. Patient states she is doing well on medication.. Discussed increased risks of depression during and and importance of reporting the development or worsening of symptoms should they occur. Pt denies ever having any suicidal thoughts or tendencies or thoughts of hurting others. Continue Lexapro and close PCP follow up Personal history of asthma Overview Mild intermittent, worsens with high pollen or cold Albuterol every few months currently (03/2023) Other Visit Diagnoses Encounter for care in first trimester of first Consultation requested by Yissel Ramon CNM for an opinion regarding complicated by history gastric bypass, obesity, depression anxiety, mild intermittent asthma and hypothyroidism. My final recommendations will be communicated back to the requesting physician by way of shared Medical record or letter to requesting physician via US mail. I spent 55 minutes in the visit, with more than 50% of the total [id number]-[id number] time of the visit in counseling / coordination of care. SIGNATURE: Neri Cannon MD PATIENT NAME: Heidy Low DATE: April 02, 2023 TIME: 9:35 AM documented in this encounter [facility] 03-18-2023 Miscellaneous Notes Increase fluids today. If she is having any urinary s/s we can order for UA to be completed. Yissel Ramon APRN.CNM Please see pt's mychart message and further advise. Message sent for additional information. Erin Mcdaniels LPN documented in this encounter [facility] 03-13-2023 Miscellaneous Notes Agree with recommendations. Yissel Ramon APRN.CNM 10w0d Please advise if any further recommendations then what she was told via [employer] response. Abigail nAn RN documented in this encounter [facility] 03-11-2023 Miscellaneous Notes Lab orders faxed to [facility]. Abigail Ann RN documented in this encounter [facility] 03-04-2023 Miscellaneous Notes at 8.5 weeks gestation seen for NOB. See progress note. Yissel Ramon APRN.CNM documented in this encounter [facility] 03-04-2023 Note HNO ID: [id number] Author: Yissel Ramon APRN.CNM Service: ? Author Type: Greenhouse Technician Type: Progress Notes Filed: 03/04/2023 5:28 PM Note Text: INITIAL OB ASSESSMENT OB Provider: Yissel Ramon APRN CNM HPI: Heidy is a 33 year old White here to establish Obstetrical Care. Patient's last menstrual period was 01/02/2023 (exact date). from OB Dating Form. Cycles regular was planned and conceived with use of 1 round of Clomid. Early US confirmed dating around 5 weeks gestation. Gastric bypass 2020- Tracey-en-Y Complaints: Nausea and fatigue OB History T0 L0 SAB0 IAB0 Ectopic0 Multiple0 Live Births0 Patient's Risk Screening for delivery: Have you had a prior franklin between 20w and 36w6d?: No MEDICAL/PSYCHOSOCIAL HISTORY: History of hemorrhage or bleeding concerns: No Thyroid Disease: Yes History of chronic hypertension: No History of pre-existing diabetes: No No results found for: ABORHD BMI 38.84 kg/(m2) History of abnormal pap: No Prior treatment for cervical dysplasia: none. 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 I don't have enough money to pay my bills: Never Within the past 12 months, have you worried that your food would run out before you had money to buy more: Never In the past 12 months, has lack of reliable transportation kept you from going to medical appointments or work, or from keeping things needed for daily living: Never In the past 12 months, have you had any concerns about having a place to live, or about the condition or quality of your housing: Never Are there any cultural or spiritual needs we should be aware of: No Depression: denies symptoms of depression. OB Depression and Anxiety Screening- This Encounter (since 03/03/2023) Over the past 2 weeks have you felt down, depressed, or hopeless? Negative Over the past two weeks, have you felt little interest or pleasure in doing things?? 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 escitalopram oxalate (LEXAPRO) 20 mg tablet Take 20 mg by mouth. ALBUTEROL INHALATION Inhale as instructed. nebulizer accessories (NEBULIZER MISC) Albuterol in nebulizer PRN Nfrtzlli-Ce-Kgd-Fe-FA tab Take 1 tablet by mouth once daily. With dha and folic acid as covered by insurance 30 tablet 11 No current facility-administered medications for this visit. Allergies As of Date: 03/04/2023 Allergen Noted Reaction NSAIDS (NON-STEROIDAL ANTI-INFLAM*02/28/2023 Intolerance ZITHROMAX [AZITHROMYCIN] 02/28/2023 GI Upset Fully Assessed 03/04/2023 Does patient have penicillin allergy: No REVIEW OF SYSTEMS: GENERAL: Negative for: Fever or Chills and Positive for: Fatigue HEENT: Negative for: Headache, Impaired Vision, Ringing in Ears, Nosebleeds NECK: Negative for: Swelling, Pain, Stiffness RESPIRATORY: Negative for: Cough, Shortness of breath, Wheezing and HISTORY OF ASTHMA- last used October/ or exercise induced GASTROINTESTINAL: Negative for: Heartburn, Constipation, Diarrhea, Blood in stool, Vomiting MUSCULOSKELETAL: Negative for: Muscle or joint pain, stiffness, Joint swelling NEUROLOGIC/PSYCHIATRIC: Negative for: Weakness, Paralysis, Numbness, Tingling, Tremor, Anxiety, Depression, Memory loss Currently on Lexpro 20 mg PO daily- for past couple of years Treatment for both anxiety a (more content not included)... [facility] 03-04-2023 History of Present illness Narrative INITIAL OB ASSESSMENT OB Provider: Yissel Ramon APRN CNM HPI: Heidy is a 33 year old White here to establish Obstetrical Care. Patient's last menstrual period was 01/02/2023 (exact date). from OB Dating Form. Cycles regular was planned and conceived with use of 1 round of Clomid. Early US confirmed dating around 5 weeks gestation. Gastric bypass 2019- Tracey-en-Y Complaints: Nausea and fatigue OB History T0 L0 SAB0 IAB0 Ectopic0 Multiple0 Live Births0 Patient's Risk Screening for delivery: Have you had a prior franklin between 20w and 36w6d?: No MEDICAL/PSYCHOSOCIAL HISTORY: History of hemorrhage or bleeding concerns: No Thyroid Disease: Yes History of chronic hypertension: No History of pre-existing diabetes: No No results found for: ABORHD BMI 38.84 kg/(m^2) History of abnormal pap: No Prior treatment for cervical dysplasia: none. 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 I don't have enough money to pay my bills: Never Within the past 12 months, have you worried that your food would run out before you had money to buy more: Never In the past 12 months, has lack of reliable transportation kept you from going to medical appointments or work, or from keeping things needed for daily living: Never In the past 12 months, have you had any concerns about having a place to live, or about the condition or quality of your housing: Never Are there any cultural or spiritual needs we should be aware of: No Depression: denies symptoms of depression. OB Depression and Anxiety Screening- This Encounter (since 03/03/2023) Over the past 2 weeks have you felt down, depressed, or hopeless? Negative Over the past two weeks, have you felt little interest or pleasure in doing things? 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 escitalopram oxalate (LEXAPRO) 20 mg tablet Take 20 mg by mouth. ALBUTEROL INHALATION Inhale as instructed. nebulizer accessories (NEBULIZER MISC) Albuterol in nebulizer PRN Xtaeemgd-Xe-Lxt-Fe-FA tab Take 1 tablet by mouth once daily. With dha and folic acid as covered by insurance 30 tablet 11 No current facility-administered medications for this visit. Allergies As of Date: 03/04/2023 Allergen Noted Reaction NSAIDS (NON-STEROIDAL ANTI-INFLAM*02/28/2023 Intolerance ZITHROMAX [AZITHROMYCIN] 02/28/2023 GI Upset Fully Assessed 03/04/2023 Does patient have penicillin allergy: No REVIEW OF SYSTEMS: GENERAL: Negative for: Fever or Chills and Positive for: Fatigue HEENT: Negative for: Headache, Impaired Vision, Ringing in Ears, Nosebleeds NECK: Negative for: Swelling, Pain, Stiffness RESPIRATORY: Negative for: Cough, Shortness of breath, Wheezing and HISTORY OF ASTHMA- last used October/ or exercise induced GASTROINTESTINAL: Negative for: Heartburn, Constipation, Diarrhea, Blood in stool, Vomiting MUSCULOSKELETAL: Negative for: Muscle or joint pain, stiffness, Joint swelling NEUROLOGIC/PSYCHIATRIC: Negative for: Weakness, Paralysis, Numbness, Tingling, Tremor, Anxiety, Depression, Memory loss Currently on Lexpro 20 mg PO daily- for past couple of years Treatment for both anxiety and depression SKIN: Negative for: Rash, Itching GENITOURINARY: Negative for: vaginal itching, vaginal discharge, hematuria or dysuria Cyst on right ovary PHYSICAL EXAM: BP 110/62 Ht 5' 5.5 (1.66m) Wt 237 lb (107.5kg) LMP 01/02/2023 BMI 38.82 kg/(m^2). GENERAL: pleasant in no apparent distress DERMATOLOGY: Normal, without lesions, non-icteric, and non-hirsute NECK: Supple and full range of motion CHEST: Normal inspiratory effort BREAST: soft, non-tender, symmetric, no dominant mass, normal nipple-areolar complex, no lymphadenopathy, and no nipple discharge ABDOMEN: soft, non-tender, and no masses NEURO: alert and oriented x3,exam grossly non-focal PELVIS: External genitalia normal without lesions. Perineal body intact. No vaginal or cervical lesions. Scant bleeding with exam. Cervix closed. Uterus 8 week size. No adnexal masses or tenderness. Clinical Pelvimetry: Pelvimetry clinically assessed as adequate Limited OB ultrasound exam: single intrauterine , positive cardiac activity, and normal bilateral adnexa OB Risk Screening: Completed, no positive findings documented. ASSESSMENT: 33 year old at 8w5d wks gestational age PLAN: 1) Patient oriented to practice. Discussed nutrition, folic acid supplementation, dietary guidelines, exercise, smoking, alcohol, caffeine, and drug use. Discussed gestational weight gain guidelines. Discussed routine OB labs including STD/HIV. Discussed how to access Your guide to a health and the Pulper Operator. Discussed aneuploidy and carrier screening. Regarding aneuploidy screening, nuchal translucency/first trimester early anatomy ultrasound and NIPT were discussed. Regarding carrier screening, the myriad screen was discussed. The risks/benefits and limitations of NIPT/aneuploidy screening were reviewed including the potential for false negative and false positive results. We discussed the availability of professional-society guided carrier screening and reviewed the conditions screened and limitations of screening. The availability of genetic counseling was reviewed. Information on aneuploidy/carrier screening was provided. The patient chooses: Aneuploidy screening: chooses to proceed with First trimester early anatomy ultrasound (12-13w6d) and Carrier screening: Declines and previous completed with [facility] Reviewed midwifery and aircraft refueller services that are available. 2) Referral to MFM for consult 3) Continue Lexapro 20 mg PO daily Continue Synthroid 50 mcg PO daily Follow up in 3 -4 weeks for NT US/ labs and MFM consult or sooner prn. Yissel Ramon APRN.CNM documented in this encounter [facility] 03-04-2023 Instructions Yonas Rhodes Cma - 03/04/2023 12:52 PM EDT Please select the following link to access the [facility] Your Guide to a Healthy . [email or web address] documented in this encounter [facility] 02-28-2023 Miscellaneous Notes DISTANCE HEALTH VISIT This Team Access Model visit is a phone encounter. It required patient-provider interaction for the medical decision making as documented below. I have communicated my name and active licensure. The patient's identity and physical location were verified at the time of this visit. Patient and her previous had been trying to conceive for 10+ years. He in a tragic car accident in 2019. Patient remarried and began infertility treatment with [facility]. Records have been received from them and are sent to [facility] office for review. This is a Clomid . Patient has a history of gastric bypass surgery in February 2020. Tracey-en-Y. I was able to obtain records from care everywhere and they are sent to [facility]'s office for review. Patient is obese. We will plan on hemoglobin A1c.Pt has a history of anxiety/depression that she said she had experienced since age 17 but was not diagnosed until after her first . She is currently on Lexapro treated by her PCP Stormy Webber in [place]. Patient states she is doing well on medication.. Discussed increased risks of depression during and and importance of reporting the development or worsening of symptoms should they occur. Pt denies ever having any suicidal thoughts or tendencies or thoughts of hurting others. Patient diagnosed with hypothyroidism in 2018 and treated by Stormy Webber her PCP. Last thyroid labs were done January 04, 2023 by [facility]. Patient has had a recent increase in her dosage. Patient's sister born with AVM. Had 2 surgeries at age 4. Patient considering aneuploidy screening. Contact information for [facility] given to patient to check on insurance coverage. Patient states she has already had genetic carrier screening testing with [facility].Heidy Farias RN documented in this encounter [facility] 02-19-2023 Miscellaneous Notes Received records from [facility]. In PNOB mailbox for upcoming appointment. Abigail Ann RN documented in this encounter [facility] 02-12-2023 Miscellaneous Notes PNV sent. Thank you, Sherly Collier APRN.CNM Pt calling and she has upcoming PNOB and NOB with our office. Pt's fertility Dr[facility]ega Will not call in any further vitamins. Wanting to know if you would be willing to call in more? Pt stated that she will need a 90d supply to the pharmacy listed. Erin Mcdaniels LPN ' documented in this encounter [facility] 01-23-2023 Emergency department Note Pt alert, oriented, no signs of distress, CP, or SOB. Pt discharge instructions reviewed, follow up care encouraged, pharmacy verified. Pt ambulated off unit, room air, steady gait. [facility] 01-23-2023 Emergency department Note Pt alert, oriented, no signs of distress, CP, or SOB. Pt discharge instructions reviewed, follow up care encouraged, pharmacy verified. Pt ambulated off unit, room air, steady gait. Emergency Department Report [facility] EM[facility]GENCY DEPARTMENT Service Date:.01/23/23 PCP: Stormy Webber Chief Complaint: Chief Complaint Patient presents with Abdominal Pain Cramping since this AM. RLQ sharp pain, states took Clomid this month. Diarrhea 5-6 episodes since this AM HPI Heidy Kwon is a 32 y.o. female presents to the ED with chief complaint of abdominal pain and diarrhea. Patient states she had generalized abdominal cramping since this morning. She states it is now more localized to the right lower quadrant. She is concerned she may have appendicitis. She states she also receiving Clomid to enhance getting . She states she does not think she is . She denies any vaginal bleeding. She denies vomiting. She states the pain has been crampy but now moved more of a sharp pain in the right lower quadrant. She denies frequency or urgency. She denies flank pain. She denies any headache. She denies any trauma to the abdomen. She denies any yellowing to the skin or eyes. She has not taken anything for this. She states it hurts worse when she moves. She denies any blood in the stool Review of Systems: Review of Systems Review of Systems Constitutional: Negative for fevers or chills Skin: Negative for rash or bruising HENT: Negative for earache, nosebleeds, sore throat, runny nose Eyes: Negative for vision loss or change, yellowing of the eyes Cardiovascular: Negative for chest pain or palpitations Gastrointestinal: Negative for vomiting. Positive for cramping abdominal pain with diarrhea. Negative for melena or hematochezia Respiratory: Negative for cough, wheeze, shortness of breath Genitourinary: Negative for frequency, urgency, dysuria Musculoskeletal: Negative for fall, trauma, deformity or fracture Neurological: Negative for headache, weakness, syncope Past Medical History: Past Medical History: Diagnosis Date Asthma Hypothyroidism suspected hypothyroidism per PCP. previously on synthroid. Insulin resistance Morbid obesity with BMI of 60.0-69.9, adult PCOS (polycystic ovarian syndrome) Past Surgical History: Past Surgical History: Procedure Laterality Date BYPASS GASTRIC W/ TRACEY-EN-Y GASTROENTEROSTOMY LAPAROSCOPIC N/A 02/23/2020 Laterality: N/A; Surgeon: Nancy Light MD; Location[facility] EGD DIAGNOSTIC N/A 02/23/2020 Laterality: N/A; Surgeon: Nancy Light MD; Location: [facility] EGD DIAGNOSTIC N/A 12/16/2019 Laterality: N/A; Surgeon: Margarita Maynard MD; Location: [facility] ENDOSCOPY DILATION AND CURETTAGE 11/2017 Allergies: Allergies Allergen Reactions Nsaids Gastric bypass surgery Zithromax [Azithromycin] Dyspepsia Medications: Patient's Medications New Prescriptions DICYCLOMINE 20 MG TABLET Take 1 tablet by mouth every 6 hours. For abdominal spasms ONDANSETRON 4 MG TAB DISPERSIBLE TABLET Take 1 tablet by mouth every 4 hours as needed for Nausea. Place on tongue Previous Medications ACETAMINOPHEN 325 MG TABLET Take 2 tablets by mouth every 6 hours. ALBUTEROL (2.5 MG/3ML) 0.083% INHALATION SOLUTION Take 3 mL by nebulization every 6 hours as needed. ALBUTEROL 108 (90 BASE) MCG/ACT AERO SOLN INHALER Inhale 1 puff every 6 hours as needed for Wheezing. ATORVASTATIN 10 MG TABLET Take 10 mg by mouth daily every morning. CALCIUM CITRATE-VITAMIN D 315-200 MG-UNIT TABLET Take 2 tablets by mouth 2 times daily. CLOMID 50 MG TABLET TAKE 1 TABLET BY MOUTH DAILY TAKE ONE A DAY FOR THE NEXT FIVE DAYS CYANOCOBALAMIN (B-12) [address] 1 tablet under tongue daily. ESCITALOPRAM 10 MG TABLET Take 1 tablet by mouth daily. ESCITALOPRAM 20 MG TABLET Take 1 tablet by mouth daily. FLUCONAZOLE 150 MG TABLET TAKE 1 PILL ON DAY ONE, 2ND PILL 72 HOURS LATER IF STILL SYMPTOMATIC LEVOTHYROXINE 25 MCG TABLET Take 1 tablet by mouth 2 times daily. LEVOTHYROXINE 50 MCG TABLET Take 50 mcg by mouth daily every morning. OMEPRAZOLE [address] CAPSULE Take 1 capsule by mouth daily. To be taken for 3 months post surgery.Open capsule until you are on the Step 3 diet. ONDANSETRON (ZOFRAN) 4 MG TABLET Take 1 tablet by mouth every 8 hours. POLYETHYLENE GLYCOL (MIRALAX) 17 GM/SCOOP POWDER POWDER Take 17 g by mouth daily as needed. VIT-FE FUMARATE-FA ( VITAMIN) 27-0.8 MG TABLET Take 1 tablet by mouth daily. SEGESTERONE-ETHINYL ESTRADIOL (ANNOVERA) 0.15-0.013 MG/24HR RING Insert vaginally every 28 days. URSODIOL 300 MG CAPSULE Take 1 capsule by mouth every 12 hours. VITAMIN D, CHOLECALCIFEROL, 25 MCG (1000 UT) CAPSULE Take 3 capsules by mouth daily. Check labs in 3 months. Modified Medications No medications on file Discontinued Medications No medications on file Family History: Family History Problem Relation Age of Onset Obstructive Sleep Apnea Mother Arthritis - Osteo Mother GI Disease Mother GERD Heart Disease - Other Mother hx Chest Pain Depression Mother Mental Illness Mother anxiety Obesity Mother Hypertension Father Cancer- Other Father skin Obesity Father Mental Illness Father Obesity Sister Social History: Social History Socioeconomic History Marital status: Spouse name: Not on file Number of children: Not on file Years of education: Not on file Highest education level: Not on file Occupational History Not on file Tobacco Use Smoking status: Never Smokeless tobacco: Never Vaping Use Vaping Use: Never used Substance and Sexual Activity Alcohol use: Yes Comment: rare Drug use: Never Sexual activity: Yes Partners: Male control/protection: Vaginal Ring Other Topics Concern Not on file Social History Narrative Not on file Social Determinants of Health Financial Resource Strain: Not on file Food Insecurity: Not on file Transportation Needs: Not on file Physical Activity: Not on file Stress: Not on file Social Connections: Not on file Intimate Partner Violence: Not on file Housing Stability: Not on file Physical Exam: Physical Exam General: Well-nourished well-hydrated pleasant nontoxic female HENT: Head is atraumatic. Face is symmetric mucous membranes are hydrated. Nose without exudates Eyes: Pupils are equal. Extraocular muscles are intact Skin: Warm, dry. No rash Abdomen: Soft. She does have tenderness in the right lower quadrant. There is no rebound tenderness. No pulsatile masses. Good bowel sounds heard in all 4 quadrants. No pulsatile masses. No CVA tenderness Respiratory: Clear. No rhonchi. No wheezing Heart: Heart tones are regular. Capillary refill is brisk. Nail beds are pink Neurologic: Awake, alert, oriented x3 Lymphatic: No anterior posterior cervical lymphadenopathy Musculoskeletal: No fracture, trauma, deformity or injury Psychiatric: Pleasant and cooperative with examiner Vital Signs During ED Visit Patient Vitals for the past 24 hrs: BP Temp Temp src Pulse Resp SpO2 Height Weight 01/23/232028 101/56 -- -- 72 18 97 % -- -- 01/23/232001 89/54 -- -- 71 14 100 % -- -- 01/23/231924 -- -- -- -- -- -- 1.651 m (5' 5 ) 104.3 kg (230 lb) 01/23/231923 110/78 98.3 F (36.8 C) Oral 103 18 98 % -- -- Orders/Results: Results for orders placed or performed during the hospital encounter of 01/23/23 CBC, EDIF, PLATELET Result Value Ref Range WBC (WHITE BLOOD COUNT) 9.4 3.6 - 11.0 10*3/uL RBC 4.68 4.0 - 5.4 10*6/uL HEMOGLOBIN (HGB) 13.3 12.0 - 16.0 G/DL HEMATOCRIT (HCT) 40.3 36.0 - 48.0 % MEAN CELL VOLUME 85.9 80.0 - 100.0 FL Mean Cell HGB 28.3 26.0 - 35.0 PG MEAN CELL HGB CONCENTRATION 32.9 27.0 - 37.0 G/DL RBC DISTRIBUTION 15.1 (H) 11.5 - 14.5 % PLATELET COUNT 233 130 - 400 10*3/uL MEAN PLATELET VOLUME 8.6 7.4 - 11.0 FL DIFFERENTIAL TYPE AUTO DIFF % NEUTROPHILS 76.7 (H) 37.0 - 75.0 % LYMPHOCYTE 15.4 (L) 20.0 - 55.0 % MONOCYTE % 4.9 0.0 - 10.0 % EOSINOPHIL % 2.7 0.0 - 11.0 % BASOPHIL % 0.3 0.0 - 2.0 % Absolute Neutrophil Count 7.2 (H) 1.4 - 6.5 10*3/uL LYMPHOCYTES, ABSOLUTE 1.4 1.2 - 3.4 10*3/uL MONOCYTES, ABSOLUTE 0.5 0.0 - 0.7 10*3/uL ABSOLUTE EOSINOPHIL COUNT 0.2 0.0 - 0.7 10*3/uL ABSOLUTE BASOPHIL COUNT 0.0 0.0 - 0.2 10*3/uL COMPREHENSIVE METABOLIC PANEL Result Value Ref Range Glucose 125 (H) 70 - 100 MG/DL BUN 11 7 - 20 MG/DL CREATININE SERUM 0.80 0.70 - 1.20 MG/DL SODIUM 139 137 - 145 MMOL/L POTASSIUM 3.9 3.5 - 5.1 MMOL/L CHLORIDE 108 (H) 98 - 107 MMOL/L CALCIUM 8.9 8.4 - 10.2 MG/DL PROTEIN, TOTAL 7.1 6.3 - 8.2 GM/DL Albumin 4.0 3.5 - 5.0 G/dl BILIRUBIN, TOTAL 1.2 0.2 - 1.3 MG/DL AST 27 14 - 36 IU/L ALKALINE PHOSPHATASE 53 38 - 126 IU/L CARBON DIOXIDE (CO2) 19 (L) 22 - 30 MMOL/L A/G Ratio 1.3 RATIO ALT 24 <35 IU/L ESTIMATED GFR, NON AMER 88 ml/min/1.73sq.m ESTIMATED GFR, 107 ml/min/1.73sq.m GFR COMMENT Average GFR for 30-39 years old = 107. LIPASE Result Value Ref Range LIPASE 93 23 - 300 U/L LACTATE, BLOOD Result Value Ref Range LACTATE 1.6 0.7 - 2.0 mmol/L URINALYSIS, MACRO Result Value Ref Range COLOR, URINE YELLOW YELLOW APPEARANCE, URINE CLEAR CLEAR Specific [place], Urine 1.025 1.010 - 1.025 PH URINE 6.0 5.0 - 7.0 Urine Protein NEGATIVE NEGATIVE mg/dl GLUCOSE, URINE NEGATIVE NEGATIVE mg/dl KETONES, URINE 15 (A) NEGATIVE mg/dl BILIRUBIN, URINE NEGATIVE NEGATIVE BLOOD, URINE DIPSTICK NEGATIVE NEGATIVE NITRITES, URINE NEGATIVE NEGATIVE UROBILINOGEN, URINE 0.2 0.2 - 1.0 E.U./dL LEUKOCYTE ESTERASE, URINE TRACE (A) NEGATIVE HCG QUALITATIVE, URINE Result Value Ref Range HCG, QUALITATIVE, URINE NEGATIVE NEGATIVE URINE MICROSCOPIC Result Value Ref Range WBC, URINE 1 TO 5 NEGATIVE /HPF RBC, URINE NEGATIVE NEGATIVE /HPF Epithelial Cells UA 20 TO 30 /HPF Mucus NEGATIVE NEGATIVE BACTERIA, URINE TRACE (A) NEGATIVE CRYSTALS, URINE NONE NONE CASTS, URINE NONE NONE /LPF COMMENT, URINE POSSIBLY CONTAMINATED SPECIMEN, CULTURE MUST BE ORDERED SEPARATELY IF DEEMED NECESSARY. Radiographic Imaging CT ABDOMEN/PELVIS WITHOUT CONTRAST Final Result IMPRESSION: 1. Multiple mildly dilated loops of small bowel with air-fluid levels suggestive of an ileus and/or enteritis. There is no definite transition point but a low-grade small bowel obstruction cannot be entirely excluded. Consider follow up CT with oral and IV contrast. 2. Status post gastric bypass with moderate distention of the gastric pouch. There is also a distended appearance of the jejunostomy which may be due to postsurgical changes or focal ileus. 3. Mild mesenteric edema and small likely reactive mesenteric, retroperitoneal and right external iliac lymph nodes. 4. Normal appendix. 5. Mild splenomegaly. Procedures: Procedures Moderate Sedation Procedure: No ED Summary/MDM Blood work was obtained and reviewed. White count is 9.4 with an H&H of 13 and 40. Chemistry panel revealed a glucose 125 with a BUN of 11 creatinine 0.8. Lipase of 93. Lactic acid level was not elevated. Urinalysis does show she has some ketones in her urine consistent with dehydration. Patient was hydrated. CT scan of her abdomen and pelvis was obtained showing a normal appearing appendix. She does have findings consistent with an enteritis. She is not vomiting I find no findings consistent with obstruction. She is feeling better at this time. She will be discharged home on Bentyl and Zofran. Follow up with her primary provider. Placed on a bland diet and may advance as tolerated Clinical Impression: 1. Generalized abdominal pain 2. Diarrhea, unspecified type No follow-ups on file. New Prescriptions DICYCLOMINE 20 MG TABLET Take 1 tablet by mouth every 6 hours. For abdominal spasms ONDANSETRON 4 MG TAB DISPERSIBLE TABLET Take 1 tablet by mouth every 4 hours as needed for Nausea. Place on tongue Discontinued Medications No medications on file An After Visit Summary was printed and given to the patient with above information. . Jeison Joseph MD 01/23/23 214 documented in this encounter [facility] 01-23-2023 Physician Emergency department Note Emergency Department Report [facility]Y [facility]PART[facility] Service Date:.01/23/23 PCP: Stormy Webber Chief Complaint: Chief Complaint Patient presents with Abdominal Pain Cramping since this AM. RLQ sharp pain, states took Clomid this month. Diarrhea 5-6 episodes since this AM HPI Heidy Kwon is a 32 y.o. female presents to the ED with chief complaint of abdominal pain and diarrhea. Patient states she had generalized abdominal cramping since this morning. She states it is now more localized to the right lower quadrant. She is concerned she may have appendicitis. She states she also receiving Clomid to enhance getting . She states she does not think she is . She denies any vaginal bleeding. She denies vomiting. She states the pain has been crampy but now moved more of a sharp pain in the right lower quadrant. She denies frequency or urgency. She denies flank pain. She denies any headache. She denies any trauma to the abdomen. She denies any yellowing to the skin or eyes. She has not taken anything for this. She states it hurts worse when she moves. She denies any blood in the stool Review of Systems: Review of Systems Review of Systems Constitutional: Negative for fevers or chills Skin: Negative for rash or bruising HENT: Negative for earache, nosebleeds, sore throat, runny nose Eyes: Negative for vision loss or change, yellowing of the eyes Cardiovascular: Negative for chest pain or palpitations Gastrointestinal: Negative for vomiting. Positive for cramping abdominal pain with diarrhea. Negative for melena or hematochezia Respiratory: Negative for cough, wheeze, shortness of breath Genitourinary: Negative for frequency, urgency, dysuria Musculoskeletal: Negative for fall, trauma, deformity or fracture Neurological: Negative for headache, weakness, syncope Past Medical History: Past Medical History: Diagnosis Date Asthma Hypothyroidism suspected hypothyroidism per PCP. previously on synthroid. Insulin resistance Morbid obesity with BMI of 60.0-69.9, adult PCOS (polycystic ovarian syndrome) Past Surgical History: Past Surgical History: Procedure Laterality Date BYPASS GASTRIC W/ TRACEY-EN-Y GASTROENTEROSTOMY LAPAROSCOPIC N/A 02/23/2020 Laterality: N/A; Surgeon: Nancy Light MD; Location: [facility] EGD DIAGNOSTIC N/A 02/23/2020 Laterality: N/A; Surgeon: Nancy Light MD; Location: [facility] EGD DIAGNOSTIC N/A 12/16/2019 Laterality: N/A; Surgeon: Margarita Maynard MD; Location: [facility] ENDOSCOPY DILATION AND CURETTAGE 11/2017 Allergies: Allergies Allergen Reactions Nsaids Gastric bypass surgery Zithromax [Azithromycin] Dyspepsia Medications: Patient's Medications New Prescriptions DICYCLOMINE 20 MG TABLET Take 1 tablet by mouth every 6 hours. For abdominal spasms ONDANSETRON 4 MG TAB DISPERSIBLE TABLET Take 1 tablet by mouth every 4 hours as needed for Nausea. Place on tongue Previous Medications ACETAMINOPHEN 325 MG TABLET Take 2 tablets by mouth every 6 hours. ALBUTEROL (2.5 MG/3ML) 0.083% INHALATION SOLUTION Take 3 mL by nebulization every 6 hours as needed. ALBUTEROL 108 (90 BASE) MCG/ACT AERO SOLN INHALER Inhale 1 puff every 6 hours as needed for Wheezing. ATORVASTATIN 10 MG TABLET Take 10 mg by mouth daily every morning. CALCIUM CITRATE-VITAMIN D 315-200 MG-UNIT TABLET Take 2 tablets by mouth 2 times daily. CLOMID 50 MG TABLET TAKE 1 TABLET BY MOUTH DAILY TAKE ONE A DAY FOR THE NEXT FIVE DAYS CYANOCOBALAMIN (B-12) [address] 1 tablet under tongue daily. ESCITALOPRAM 10 MG TABLET Take 1 tablet by mouth daily. ESCITALOPRAM 20 MG TABLET Take 1 tablet by mouth daily. FLUCONAZOLE 150 MG TABLET TAKE 1 PILL ON DAY ONE, 2ND PILL 72 HOURS LATER IF STILL SYMPTOMATIC LEVOTHYROXINE 25 MCG TABLET Take 1 tablet by mouth 2 times daily. LEVOTHYROXINE 50 MCG TABLET Take 50 mcg by mouth daily every morning. OMEPRAZOLE [address] CAPSULE Take 1 capsule by mouth daily. To be taken for 3 months post surgery.Open capsule until you are on the Step 3 diet. ONDANSETRON (ZOFRAN) 4 MG TABLET Take 1 tablet by mouth every 8 hours. POLYETHYLENE GLYCOL (MIRALAX) 17 GM/SCOOP POWDER POWDER Take 17 g by mouth daily as needed. VIT-FE FUMARATE-FA ( VITAMIN) 27-0.8 MG TABLET Take 1 tablet by mouth daily. SEGESTERONE-ETHINYL ESTRADIOL (ANNOVERA) 0.15-0.013 MG/24HR RING Insert vaginally every 28 days. URSODIOL 300 MG CAPSULE Take 1 capsule by mouth every 12 hours. VITAMIN D, CHOLECALCIFEROL, 25 MCG (1000 UT) CAPSULE Take 3 capsules by mouth daily. Check labs in 3 months. Modified Medications No medications on file Discontinued Medications No medications on file Family History: Family History Problem Relation Age of Onset Obstructive Sleep Apnea Mother Arthritis - Osteo Mother GI Disease Mother GERD Heart Disease - Other Mother hx Chest Pain Depression Mother Mental Illness Mother anxiety Obesity Mother Hypertension Father Cancer- Other Father skin Obesity Father Mental Illness Father Obesity Sister Social History: Social History Socioeconomic History Marital status: Spouse name: Not on file Number of children: Not on file Years of education: Not on file Highest education level: Not on file Occupational History Not on file Tobacco Use Smoking status: Never Smokeless tobacco: Never Vaping Use Vaping Use: Never used Substance and Sexual Activity Alcohol use: Yes Comment: rare Drug use: Never Sexual activity: Yes Partners: Male control/protection: Vaginal Ring Other Topics Concern Not on file Social History Narrative Not on file Social Determinants of Health Financial Resource Strain: Not on file Food Insecurity: Not on file Transportation Needs: Not on file Physical Activity: Not on file Stress: Not on file Social Connections: Not on file Intimate Partner Violence: Not on file Housing Stability: Not on file Physical Exam: Physical Exam General: Well-nourished well-hydrated pleasant nontoxic female HENT: Head is atraumatic. Face is symmetric mucous membranes are hydrated. Nose without exudates Eyes: Pupils are equal. Extraocular muscles are intact Skin: Warm, dry. No rash Abdomen: Soft. She does have tenderness in the right lower quadrant. There is no rebound tenderness. No pulsatile masses. Good bowel sounds heard in all 4 quadrants. No pulsatile masses. No CVA tenderness Respiratory: Clear. No rhonchi. No wheezing Heart: Heart tones are regular. Capillary refill is brisk. Nail beds are pink Neurologic: Awake, alert, oriented x3 Lymphatic: No anterior posterior cervical lymphadenopathy Musculoskeletal: No fracture, trauma, deformity or injury Psychiatric: Pleasant and cooperative with examiner Vital Signs During ED Visit Patient Vitals for the past 24 hrs: BP Temp Temp src Pulse Resp SpO2 Height Weight 01/23/232028 101/56 -- -- 72 18 97 % -- -- 01/23/232001 89/54 -- -- 71 14 100 % -- -- 01/23/231924 -- -- -- -- -- -- 1.651 m (5' 5 ) 104.3 kg (230 lb) 01/23/231923 110/78 98.3 F (36.8 C) Oral 103 18 98 % -- -- Orders/Results: Results for orders placed or performed during the hospital encounter of 01/23/23 CBC, EDIF, PLATELET Result Value Ref Range WBC (WHITE BLOOD COUNT) 9.4 3.6 - 11.0 10*3/uL RBC 4.68 4.0 - 5.4 10*6/uL HEMOGLOBIN (HGB) 13.3 12.0 - 16.0 G/DL HEMATOCRIT (HCT) 40.3 36.0 - 48.0 % MEAN CELL VOLUME 85.9 80.0 - 100.0 FL Mean Cell HGB 28.3 26.0 - 35.0 PG MEAN CELL HGB CONCENTRATION 32.9 27.0 - 37.0 G/DL RBC DISTRIBUTION 15.1 (H) 11.5 - 14.5 % PLATELET COUNT 233 130 - 400 10*3/uL MEAN PLATELET VOLUME 8.6 7.4 - 11.0 FL DIFFERENTIAL TYPE AUTO DIFF % NEUTROPHILS 76.7 (H) 37.0 - 75.0 % LYMPHOCYTE 15.4 (L) 20.0 - 55.0 % MONOCYTE % 4.9 0.0 - 10.0 % EOSINOPHIL % 2.7 0.0 - 11.0 % BASOPHIL % 0.3 0.0 - 2.0 % Absolute Neutrophil Count 7.2 (H) 1.4 - 6.5 10*3/uL LYMPHOCYTES, ABSOLUTE 1.4 1.2 - 3.4 10*3/uL MONOCYTES, ABSOLUTE 0.5 0.0 - 0.7 10*3/uL ABSOLUTE EOSINOPHIL COUNT 0.2 0.0 - 0.7 10*3/uL ABSOLUTE BASOPHIL COUNT 0.0 0.0 - 0.2 10*3/uL COMPREHENSIVE METABOLIC PANEL Result Value Ref Range Glucose 125 (H) 70 - 100 MG/DL BUN 11 7 - 20 MG/DL CREATININE SERUM 0.80 0.70 - 1.20 MG/DL SODIUM 139 137 - 145 MMOL/L POTASSIUM 3.9 3.5 - 5.1 MMOL/L CHLORIDE 108 (H) 98 - 107 MMOL/L CALCIUM 8.9 8.4 - 10.2 MG/DL PROTEIN, TOTAL 7.1 6.3 - 8.2 GM/DL Albumin 4.0 3.5 - 5.0 G/dl BILIRUBIN, TOTAL 1.2 0.2 - 1.3 MG/DL AST 27 14 - 36 IU/L ALKALINE PHOSPHATASE 53 38 - 126 IU/L CARBON DIOXIDE (CO2) 19 (L) 22 - 30 MMOL/L A/G Ratio 1.3 RATIO ALT 24 <35 IU/L ESTIMATED GFR, NON AMER 88 ml/min/1.73sq.m ESTIMATED GFR, 107 ml/min/1.73sq.m GFR COMMENT Average GFR for 30-39 years old = 107. LIPASE Result Value Ref Range LIPASE 93 23 - 300 U/L LACTATE, BLOOD Result Value Ref Range LACTATE 1.6 0.7 - 2.0 mmol/L URINALYSIS, MACRO Result Value Ref Range COLOR, URINE YELLOW YELLOW APPEARANCE, URINE CLEAR CLEAR Specific [place], Urine 1.025 1.010 - 1.025 PH URINE 6.0 5.0 - 7.0 Urine Protein NEGATIVE NEGATIVE mg/dl GLUCOSE, URINE NEGATIVE NEGATIVE mg/dl KETONES, URINE 15 (A) NEGATIVE mg/dl BILIRUBIN, URINE NEGATIVE NEGATIVE BLOOD, URINE DIPSTICK NEGATIVE NEGATIVE NITRITES, URINE NEGATIVE NEGATIVE UROBILINOGEN, URINE 0.2 0.2 - 1.0 E.U./dL LEUKOCYTE ESTERASE, URINE TRACE (A) NEGATIVE HCG QUALITATIVE, URINE Result Value Ref Range HCG, QUALITATIVE, URINE NEGATIVE NEGATIVE URINE MICROSCOPIC Result Value Ref Range WBC, URINE 1 TO 5 NEGATIVE /HPF RBC, URINE NEGATIVE NEGATIVE /HPF Epithelial Cells UA 20 TO 30 /HPF Mucus NEGATIVE NEGATIVE BACTERIA, URINE TRACE (A) NEGATIVE CRYSTALS, URINE NONE NONE CASTS, URINE NONE NONE /LPF COMMENT, URINE POSSIBLY CONTAMINATED SPECIMEN, CULTURE MUST BE ORDERED SEPARATELY IF DEEMED NECESSARY. Radiographic Imaging CT ABDOMEN/PELVIS WITHOUT CONTRAST Final Result IMPRESSION: 1. Multiple mildly dilated loops of small bowel with air-fluid levels suggestive of an ileus and/or enteritis. There is no definite transition point but a low-grade small bowel obstruction cannot be entirely excluded. Consider follow up CT with oral and IV contrast. 2. Status post gastric bypass with moderate distention of the gastric pouch. There is also a distended appearance of the jejunostomy which may be due to postsurgical changes or focal ileus. 3. Mild mesenteric edema and small likely reactive mesenteric, retroperitoneal and right external iliac lymph nodes. 4. Normal appendix. 5. Mild splenomegaly. Procedures: Procedures Moderate Sedation Procedure: No ED Summary/MDM Blood work was obtained and reviewed. White count is 9.4 with an H&H of 13 and 40. Chemistry panel revealed a glucose 125 with a BUN of 11 creatinine 0.8. Lipase of 93. Lactic acid level was not elevated. Urinalysis does show she has some ketones in her urine consistent with dehydration. Patient was hydrated. CT scan of her abdomen and pelvis was obtained showing a normal appearing appendix. She does have findings consistent with an enteritis. She is not vomiting I find no findings consistent with obstruction. She is feeling better at this time. She will be discharged home on Bentyl and Zofran. Follow up with her primary provider. Placed on a bland diet and may advance as tolerated Clinical Impression: 1. Generalized abdominal pain 2. Diarrhea, unspecified type No follow-ups on file. New Prescriptions DICYCLOMINE 20 MG TABLET Take 1 tablet by mouth every 6 hours. For abdominal spasms ONDANSETRON 4 MG TAB DISPERSIBLE TABLET Take 1 tablet by mouth every 4 hours as needed for Nausea. Place on tongue Discontinued Medications No medications on file An After Visit Summary was printed and given to the patient with above information. . Jeison Joseph MD 01/23/23 2[facility] 10-02-2022 History of Present illness Narrative Patient here for annual. Last pap 12/11/16 NIL. HPI Heidy Kwon is a 32 y.o. 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 Patient inquired about fertility. She is currently on control; annovera (cervical ring) Does not do self breast awareness/exam No urinary symptoms nor pelvic pain reported at this time No other concerns reported at this time. LMP: Patient's last menstrual period was 09/05/2022. No results found for: PAPSMEAR OB HISTORY: OB History Para Term AB Living 0 0 0 0 0 0 SAB IAB Ectopic Molar Multiple Live Births 0 0 0 0 0 0 HISTORY/ALLERGIES Allergies Allergen Reactions Zithromax [Azithromycin] Dyspepsia Past Medical History: Diagnosis Date Asthma Hypothyroidism suspected hypothyroidism per PCP. previously on synthroid. Insulin resistance Morbid obesity with BMI of 60.0-69.9, adult PCOS (polycystic ovarian syndrome) Past Surgical History: Procedure Laterality Date BYPASS GASTRIC W/ TRACEY-EN-Y GASTROENTEROSTOMY LAPAROSCOPIC N/A 02/23/2020 Laterality: N/A; Surgeon: Nancy Light MD; Location: [facility] MAIN OR EGD DIAGNOSTIC N/A 02/23/2020 Laterality: N/A; Surgeon: Nancy Light MD; [facility]GD DIAGNOSTIC N/A 12/16/2019 Laterality: N/A; Surgeon: Margarita Maynard MD; Location: [facility] ENDOSCOPY DILATION AND CURETTAGE 11/2017 Social History Tobacco Use Smoking status: Never Smokeless tobacco: Never Vaping Use Vaping Use: Never used Substance Use Topics Alcohol use: Yes Comment: rare Drug use: Never Family History Problem Relation Age of Onset Obstructive Sleep Apnea Mother Arthritis - Osteo Mother GI Disease Mother GERD Heart Disease - Other Mother hx Chest Pain Depression Mother Mental Illness Mother anxiety Obesity Mother Hypertension Father Cancer- Other Father skin Obesity Father Mental Illness Father Obesity Sister Current Outpatient Medications: albuterol (2.5 MG/3ML) 0.083% inhalation solution, Take 3 mL by nebulization every 6 hours as needed., Disp: , Rfl: albuterol 108 (90 Base) MCG/ACT Aero Soln inhaler, Inhale 1 puff every 6 hours as needed for Wheezing., Disp: , Rfl: Calcium Citrate-Vitamin D 315-200 MG-UNIT tablet, Take 2 tablets by mouth 2 times daily., Disp: 120 tablet, Rfl: 11 Cyanocobalamin (B-12) 500 MCG Tab SL, Place 1 tablet under tongue daily., Disp: 30 tablet, Rfl: 11 Vit-Fe Fumarate-FA ( vitamin) 27-0.8 MG tablet, Take 1 tablet by mouth daily., Disp: 90 tablet, Rfl: 3 Segesterone-Ethinyl Estradiol (Annovera) 0.15-0.013 MG/24HR Ring, Insert vaginally every 28 days., Disp: , Rfl: acetaminophen 325 MG tablet, Take 2 tablets by mouth every 6 hours. (Patient not taking: Reported on 10/02/2022), Disp: 112 tablet, Rfl: 0 atorvastatin 10 MG tablet, Take 10 mg by mouth daily every morning. (Patient not taking: Reported on 10/02/2022), Disp: , Rfl: Escitalopram 10 MG tablet, Take 1 tablet by mouth daily., Disp: , Rfl: levothyroxine 50 MCG tablet, Take 50 mcg by mouth daily every morning. (Patient not taking: Reported on 10/02/2022), Disp: , Rfl: omeprazole [address] capsule, Take 1 capsule by mouth daily. To be taken for 3 months post surgery.Open capsule until you are on the Step 3 diet. (Patient not taking: Reported on 10/02/2022), Disp: 90 capsule, Rfl: 0 ondansetron (Zofran) 4 MG tablet, Take 1 tablet by mouth every 8 hours. (Patient not taking: Reported on 10/02/2022), Disp: 42 tablet, Rfl: 0 polyethylene glycol (MiraLax) 17 GM/SCOOP Powder powder, Take 17 g by mouth daily as needed. (Patient not taking: Reported on 10/02/2022), Disp: 225 g, Rfl: 0 ursodiol 300 MG capsule, Take 1 capsule by mouth every 12 hours. (Patient not taking: Reported on 10/02/2022), Disp: 60 capsule, Rfl: 5 Vitamin D, Cholecalciferol, 25 MCG (1000 UT) capsule, Take 3 capsules by mouth daily. Check labs in 3 months. (Patient not taking: Reported on 10/02/2022), Disp: 270 capsule, Rfl: 3 ROS Review of Systems Constitutional: Negative. HENT: Negative. Eyes: Negative. Respiratory: Negative. Cardiovascular: Negative. Gastrointestinal: Negative. Genitourinary: Negative. Musculoskeletal: Negative. Skin: Negative. Neurological: Negative. Psychiatric/Behavioral: Negative. All other systems reviewed and are negative. EXAM BP 131/75 Pulse 88 Ht 5' 5.5 (1.664 m) Wt 233 lb (105.7 kg) BMI 38.18 kg/m Smoking Status Never Physical Exam Vitals and nursing note reviewed. Exam conducted with a linux vmware administrator present. Constitutional: General: She is not in acute distress. Appearance: Normal appearance. She is obese. She is not ill-appearing. HENT: Head: Normocephalic and atraumatic. Cardiovascular: Rate and Rhythm: Normal rate and regular rhythm. Heart sounds: Normal heart sounds. Pulmonary: Effort: Pulmonary effort is normal. Breath sounds: Normal breath sounds. Chest: Chest wall: No mass. Breasts: Breasts are symmetrical. Right: Normal. Left: Normal. Abdominal: General: There is no distension. Palpations: Abdomen is soft. There is no mass. Tenderness: There is no abdominal tenderness. Genitourinary: General: Normal vulva. Exam position: Lithotomy position. Pubic Area: No rash. Labia: Right: No rash, tenderness, lesion or injury. Left: No rash, tenderness, lesion or injury. Vagina: Normal. No vaginal discharge. Cervix: Normal. Uterus: Normal. Comments: Exam obscured by body habitus Musculoskeletal: General: Normal range of motion. Cervical back: Normal range of motion. Lymphadenopathy: Upper Body: Right upper body: No axillary adenopathy. Left upper body: No axillary adenopathy. Skin: General: Skin is warm and dry. Neurological: General: No focal deficit present. Mental Status: She is alert and oriented to person, place, and time. Psychiatric: Mood and Affect: Mood normal. Behavior: Behavior normal. Diagnosis/Plan: Heidy was seen today for annual exam. 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 She reported a history of infertility in the past. I encouraged her to check with her insurance as to what is covered. Encounter for screening for cervical cancer - YAIMA CYTOLOGY-ORACLE DATABASE ADMINISTRATOR, LIQUID BASED We talked about the continuum of care in the screening of cervical cancer as per ASCCP guidelines. I shared with patient that the results will be back within a week and I will review them and release them to her on SHADOt. If there are any abnormal results, she will hear from us and we will follow the algorithms set forth by the ASCCP guidelines. Encounter for breast cancer screening using non-mammogram modality CBE done today Did teaching on self breast awareness Encouraged monthly self breast exams and annual mammograms starting at age 40 Answered all of patient's questions and she verbalized understanding Shared decision making; patient in agreement Isela Antunez MD 10/02/2022 documented in this encounter [facility] 01-30-2022 Evaluation + Plan note Associated Problem(s): Anxiety Chronic, uncontrolled [facility] 01-30-2022 Miscellaneous Notes Associated Problem(s): Anxiety Chronic, uncontrolled documented in this encounter [facility] 01-30-2022 History of Present illness Narrative OFFICE VISIT PROGRESS NOTE HPI Patient here for issues with thyroid. Has been off x 2 years after gastric bypass. Patient states fatigue and anxiety/depression. Patient started synthroid 50mcg x 1 month. Denies changes skin, menses, bowels or heart palpitation. States crying,sadness, anxiety x years Took Zoloft in past with bad side effect. Problems with concentration, memory and motivation. Up and down sleep. Appetite good. Denies suicide ideation. The following portions of the patient's history were reviewed and updated as appropriate: allergies, current medications and problem list. The patient's surgical, family, and social history was reviewed and updated as appropriate. Review of Systems Review of Systems Constitutional: Positive for fatigue. Respiratory: Negative. Cardiovascular: Negative. Gastrointestinal: Negative. Endocrine: Negative. Neurological: Negative. Psychiatric/Behavioral: Positive for decreased concentration, dysphoric mood and sleep disturbance. Negative for suicidal ideas. The patient is nervous/anxious. Vitals: 01/30/22 1545 BP: 104/71 BP Location: Right arm Patient Position: Sitting BP Cuff Size: X-large Adult Pulse: 94 Temp: 98.1 F (36.7 C) TempSrc: Oral SpO2: 97% Weight: 99.9 kg (220 lb 3.2 oz) Body mass index is 36.09 kg/m . Physical Exam Physical Exam Constitutional: General: She is not in acute distress. Appearance: Normal appearance. She is obese. She is not ill-appearing or toxic-appearing. Cardiovascular: Rate and Rhythm: Normal rate and regular rhythm. Pulses: Normal pulses. Heart sounds: Normal heart sounds. Pulmonary: Effort: Pulmonary effort is normal. Breath sounds: Normal breath sounds. Abdominal: General: Abdomen is flat. Bowel sounds are normal. Palpations: Abdomen is soft. Musculoskeletal: Cervical back: Neck supple. Skin: General: Skin is warm. Neurological: Mental Status: She is alert and oriented to person, place, and time. Psychiatric: Mood and Affect: Mood normal. Behavior: Behavior normal. Thought Content: Thought content normal. Judgment: Judgment normal. Comments: Good eye contact, appropriate affect OARRS/NARxCHECK Report Received and Assessed: No data found Date controlled substance agreement signed: No data found Date of last drug screen: No data found Functional Assessment: No data found Assessment/Plan Problem List Items Addressed This Visit Other Anxiety Chronic, uncontrolled Other Visit Diagnoses Acquired hypothyroidism - Primary await TSH Relevant Orders TSH with Reflex Free T4 Encounter for contraceptive management, unspecified type Nuva ring prescription sent into pharmacy. Call the office with any questions. Relevant Medications etonogestreL-ethinyl estradioL (NUVARING) 0.12-0.015 mg/24 hr vaginal ring Mild major depression (HCC) Relevant Medications escitalopram oxalate (LEXAPRO) 10 MG tablet IFG (impaired fasting glucose) await A1C Relevant Orders Hemoglobin A1c Return in about 4 weeks (around 02/27/2022). If any referrals were placed at today's visit the patient was instructed to call the office if they havn't heard anything about the referral within 2 weeks of today's visit. For any new medications prescribed today, patient was educated about indications for the medication, how to take the medication and potential side effects of the medications. Lauren Proctor CNP documented in this encounter [facility] Diagnosis Well woman exam with routine gynecological exam- Primary Routine gynecological examination Encounter for screening for cervical cancer Encounter for breast cancer screening using non-mammogram modality [facility] Diagnosis Anxiety and depression- Primary [facility] Diagnosis Generalized abdominal pain- Primary Abdominal pain, generalized Diarrhea, unspecified type [facility] Diagnosis Hypothyroidism, unspecified type Anxiety and depression [facility]* Diagnosis Supervision of high risk , antepartum- Primary associated with use of clomiphene, antepartum complicated by previous gastric bypass, antepartum Bariatric surgery status complicating , childbirth, or the puerperium, antepartum condition or complication Obesity in Obesity complicating , childbirth, or the puerperium, unspecified as to episode of care or not applicable History of depression Personal history of other mental disorder History of hypothyroidism Personal history of other endocrine, metabolic, and immunity disorders Family history of congenital malformation Family history of congenital anomalies [facility] Diagnosis associated with use of clomiphene, antepartum- Primary 8 weeks gestation of state, incidental complicated by previous gastric bypass, antepartum Bariatric surgery status complicating , childbirth, or the puerperium, antepartum condition or complication Obesity in Obesity complicating , childbirth, or the puerperium, unspecified as to episode of care or not applicable Encounter for care in first trimester of first History of depression Personal history of other mental disorder Personal history of asthma Personal history of other diseases of respiratory system History of hypothyroidism Personal history of other endocrine, metabolic, and immunity disorders documented in this encounter [facility] note* Diagnosis History of hypothyroidism- Primary Personal history of other endocrine, metabolic, and immunity disorders associated with use of clomiphene, antepartum complicated by previous gastric bypass, antepartum Bariatric surgery status complicating , childbirth, or the puerperium, antepartum condition or complication Obesity in Obesity complicating , childbirth, or the puerperium, unspecified as to episode of care or not applicable Encounter for care in first trimester of first History of depression Personal history of other mental disorder Personal history of asthma Personal history of other diseases of respiratory system Encounter for (NT) nuchal translucency scan Other specified screening 12 weeks gestation of state, incidental documented in this encounter [facility] note* Diagnosis associated with use of clomiphene, antepartum- Primary complicated by previous gastric bypass, antepartum Bariatric surgery status complicating , childbirth, or the puerperium, antepartum condition or complication Obesity in Obesity complicating , childbirth, or the puerperium, unspecified as to episode of care or not applicable Encounter for care in first trimester of first 12 weeks gestation of state, incidental documented in this encounter [facility] note* Diagnosis Encounter to establish care- Primary Acquired hypothyroidism Unspecified hypothyroidism Anxiety Anxiety state, unspecified Status post gastric bypass for obesity Bariatric surgery status Class 2 severe obesity due to excess calories with serious comorbidity and body mass index (BMI) of 39.0 to 39.9 in adult ([facility]) Status post gastric bypass for obesity Bariatric surgery status documented in this encounter [facility] Work Phone: Evaluation note* Diagnosis Obesity in - Primary Obesity complicating , childbirth, or the puerperium, unspecified as to episode of care or not applicable 20 weeks gestation of state, incidental [facility] Diagnosis Diarrhea, unspecified type- Primary Anxiety Anxiety state, unspecified Iron deficiency Disorders of iron metabolism Current mild episode of major depressive disorder without prior episode ([facility]) documented in this encounter [facility] Work Phone: Evaluation note* Diagnosis 24 weeks gestation of - Primary state, incidental complicated by previous gastric bypass, antepartum Bariatric surgery status complicating , childbirth, or the puerperium, antepartum condition or complication Supervision of high risk , antepartum [facility]* Diagnosis complicated by previous gastric bypass, antepartum Bariatric surgery status complicating , childbirth, or the puerperium, antepartum condition or complication Obesity in Obesity complicating , childbirth, or the puerperium, unspecified as to episode of care or not applicable Encounter for care in first trimester of first documented in this encounter [facility] note* Diagnosis Mild intermittent asthma without complication- Primary Diarrhea, unspecified type Iron deficiency Disorders of iron metabolism documented in this encounter [facility] Work Phone: Evaluation note* Diagnosis Obesity affecting in third trimester, unspecified obesity type- Primary complicated by previous gastric bypass, antepartum Bariatric surgery status complicating , childbirth, or the puerperium, antepartum condition or complication 36 weeks gestation of state, incidental documented in this encounter [facility] note* Diagnosis Obesity affecting in third trimester, unspecified obesity type- Primary complicated by previous gastric bypass, antepartum Bariatric surgery status complicating , childbirth, or the puerperium, antepartum condition or complication 36 weeks gestation of state, incidental Supervision of high risk , antepartum [facility] Attachments The following attachments cannot be sent through Care Everywhere. * Abdominal Pain (Yemeni) * Diarrhea ([place]emeni) [facility]* Attachments The following attachments cannot be sent through Care Everywhere. * Movement Count ([facility]) (Yemeni) [facility]ative)* Diagnostic Procedure Only (Routine) - Pending Review Specialty Diagnoses / Procedures Referred By Contac t Referred To Contact [facility] Diagnoses complicated by previous gastric bypass, antepartum Obesity in Encounter for care in first trimester of first Procedures OBSTETRIC ULTRASOUND WHI US PREG UTERUS AFTER 1ST TRIMEST GESTATION Ashely Kim MD [address] [place] [address] [address] Referral ID Status Reason Start Date Expiration Date Visits Requested Visits Authorized [id number] Pending Review Auto-Generat ed Referral 04/02/2023 04/01/2024 1 1 [facility] for referral (narrative)* Consultation (Routine) - Authorized Specialty Diagnoses / Procedures Referred By Contac t Referred To Contact Primary Care Diagnoses Diarrhea, unspecified type Procedures Follow Up In Primary Care - Established Holli Kessler DO [address] [place] [address] Referral ID Status Reason Start Date Expiration Date V isits Requested Visits Authorized [id number] Authorized 06/13/2023 06/12/2024 1 1 [facility] Work Phone: [facility] for visit Narrative* Diagnostic Procedure Only (Routine) - Closed Specialty Diagnoses / Procedures Referred By Contac t Referred To Contact [facility] Diagnoses complicated by previous gastric bypass, antepartum Obesity in Encounter for care in first trimester of first Procedures OBSTETRIC ULTRASOUND WHI US PREG UTERUS AFTER 1ST TRIMEST GESTATION Ashely Kim MD [address] [place] [address] [facility] [address] [place] [address] Referral ID Status Reason Start Date Expiration Date V isits Requested Visits Authorized [id number] Closed Auto-Generate d Referral 04/25/2023 08/04/2023 1 1 [facility] for visit Narrative* Consultation (Routine) - Authorized Specialty Diagnoses / Procedures Referred By Contac t Referred To Contact Primary Care Diagnoses Diarrhea, unspecified type Procedures Follow Up In Primary Care - Established Holli Kessler DO [address] [place] [address] Referral ID Status Reason Start Date Expiration Date V isits Requested Visits Authorized [id number] Authorized 06/13/2023 06/12/2024 1 1 [facility] Work Phone: Summary Purpose Family History No Family History Records FoundNo Family History Records FoundNo Family History Records FoundNo Family History Records FoundNo Family History Records FoundNo Family History Records FoundNo Family History Records FoundNo Family History Records FoundNo Family History Records FoundNo Family History Records Found Advance Directives Documents on File Type Date Recorded 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 Advance Directives and Living Will Latest Code Status on File Code Status Date Activated Date Inactivated Comments Full Code 02/23/2020 2:36 PM Code Status History Code Status Date Activated Date Inactivated Comments Full Code 02/23/2020 6:14 AM 02/23/2020 11:14 AM Reason for Referral Status Reason Specialty Diagnoses / Procedures Referred By Contact Referred To Contact Authorized Sleep Medicine Diagnoses Insulin resistance Morbid obesity with body mass index (BMI) of 50.0 to 59.9 in adult (HCC) Procedures 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 sleep 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[employer], 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 [address] [place] [address] Status Reason Specialty Diagnoses / Procedures Referred By Contact Referred To Contact Closed Specialty Services Required/Patien t's Best Interest Endocrinology Diagnoses Other specified hypoglycemia Magno Rodriguez MD [address] [place] [address] Angela Haskins MD [address] [place] [id number] Specialty Diagnoses / Procedures Referred By Contzuri t Referred To Contact Diagnoses associated with use of clomiphene, antepartum complicated by previous gastric bypass, antepartum Obesity in Encounter for care in first trimester of first 8 weeks gestation of Procedures CONSULT TO MATERNAL MEDI OFFICE/OUTPATIENT NEW HIGH MDM 60-74 MINUTES Yissel Ramon APRN.CNM [address] [place] [address] Referral ID Status Reason Start Date Expiration Date Visits Requested Visits Authorized [id number] Pending Review PCP Requested Referral Auto-Generate d Referral 03/04/2023 03/03/2024 1 1 Specialty Diagnoses / Procedures Referred By Contac t Referred To Contact [facility] Diagnoses associated with use of clomiphene, antepartum complicated by previous gastric bypass, antepartum Obesity in Encounter for care in first trimester of first 8 weeks gestation of Procedures NUCHAL TRANSLUCENCY WHI US NUCHAL TRANSLUCENCY 1ST GESTATION Yissel Ramon APRN.CNM [address] [place] [address] [facility] [employer] [place] [address] Referral ID Status Reason Start Date Expiration Date Visits Requested Visits Authorized [id number] Pending Review Auto-Generat ed Referral 03/04/2023 03/03/2024 1 1 Specialty Diagnoses / Procedures Referred By Contac t Referred To Contact [facility] Diagnoses associated with use of clomiphene, antepartum complicated by previous gastric bypass, antepartum Obesity in Encounter for care in first trimester of first 8 weeks gestation of Procedures OBSTETRIC ULTRASOUND WHI US PREG UTERUS AFTER 1ST TRIMEST GESTATION Yissel Ramon APRN.CNM [address] [place] [address] [facility] [address] [place] [address] Referral ID Status Reason Start Date Expiration Date Visits Requested Visits Authorized [id number] Pending Review Auto-Generat ed Referral 03/04/2023 03/03/2024 1 1 Specialty Diagnoses / Procedures Referred By Contac t Referred To Contact Diagnoses Mild intermittent asthma without complication Holli Kessler DO [address] [facility] [address] [place] [address] Referral ID Status Reason Start Date Expiration Date V isits Requested Visits Authorized [id number] Pending Review 07/16/2023 07/15/2024 1 1 Instructions * Patient Instructions* Sofi Verdugo CNP - 09/19/2018 9:02 AM EST Problem List Items Addressed This Visit Other Insulin resistance - Primary It is important we get you back on your Metformin, this is the best and safest drug for insulin resistance, prediabetes, PCOS, and metabolic syndrome. Relevant Orders POC Glucose Device (Completed) POC Glycosylated Hemoglobin (Hb A1C) (Completed) CBC and Differential Comprehensive Metabolic Panel Insulin, Total Home sleep test DUB (dysfunctional uterine bleeding) This could very much all be related to metabolic syndrome or hypothyroidism. Lets see what your labs show and go from there. Anxiety Right now you are taking Buspar as needed 5mg BID. I do not believe this is an adequate dose but I do not want to add anything else at this time due to restarting the Metformin. One med and one side effect at a time. Will reevaluate this in 2 weeks. Relevant Orders TSH with Reflex Free T4 T3, Free Morbid obesity with body mass index (BMI) of 50.0 to 59.9 in adult (HCC) Look online at [employer] and read the book It Starts with Food Eat meat, vegetables, nuts and seeds, some fruit, very little starch and absolutely no sugar. If you can grow it or kill it, then that's what you should be eating..... Chicken, turkey, fish pork, beef, ALL vegetables and fruit. If it is processed or you can not pronounce the ingredients, do not eat it! Shop the outside perimeter of the grocery store. Listen to your body, if you are hungry all the time you may need to increase your intake of healthyveggies and small healthy snacks. Eat whole, healthy foods and you won't need to count calories. Increase your activity level; the more you move your body the healthier you will be and the better you will feel! Diet and Exercise is not a fad, it really works! Relevant Orders TSH with Reflex Free T4 T3, Free Lipid Panel Home sleep test Other Visit Diagnoses Need for vaccination Relevant Orders Tdap vaccine greater than or equal to 7yo IM (Completed) in this encounter* Patient Instructions* Stormy Webber CNP - 10/12/2019 10:55 PM EDT 1. Routine general medical examination at a health care facility 2. Hypothyroidism, unspecified type TSH with Reflex Free T4 levothyroxine (SYNTHROID, LEVOTHROID) 50 MCG tablet Start back on thyroid medication and have levels rechecked. 3. Hyperlipidemia, unspecified hyperlipidemia type atorvastatin (LIPITOR) 10 MG tablet Start back on cholesterol medication. 4. Mild intermittent asthma, unspecified whether complicated Chronic, stable. well controlled on current inhalers and nebs as needed 5. Seasonal allergies Chronic, stable. well controlled on current medications 6. Class 3 severe obesity with body mass index (BMI) of 50.0 to 59.9 in adult, unspecified obesity type, unspecified whether serious comorbidity present (HCC) chronic, stable. Follow diet plan and exercise as set up by DANIEL physicans. Seasonal Allergies: Care Instructions Your Care Instructions Allergies occur when your body's defense system (immune system) overreacts to certain substances. The immune system treats a harmless substance as if it were a harmful germ or virus. Many things can cause this to happen. Examples include pollens, medicine, food, dust, animal dander, and mold. Your allergies are seasonal if you have symptoms just at certain times of the year. In that case, you are probably allergic to pollens from certain trees, grasses, or weeds. Allergies can be mild or severe. Cfyl-lpm-zpcyhnq allergy medicine may help with some symptoms. Read and follow all instructions on the label. Managing your allergies is an important part of staying healthy. Your doctor may suggest that you have tests to help find the cause of your allergies. When you know what things trigger your symptoms,you can avoid them. This can prevent allergy symptoms and other health problems. In some cases, immunotherapy might help. For this treatment, you get shots or use pills that have asmall amount of certain allergens in them. Your body gets used to the allergen, so you react lessto it over time. This kind of treatment may help prevent or reduce some allergy symptoms. Follow-up care is a kilpatrick part of your treatment and safety. Be sure to make and go to all appointments, and call your doctor if you are having problems. It's also a good idea to know your test resultsand keep a list of the medicines you take. How can you care for yourself at home? Be safe with medicines. Take your medicines exactly as prescribed. Call your doctor if you think you are having a problem with your medicine. During your allergy season, keep windows closed. If you need to use air- conditioning, change or clean all filters every month. Take a shower and change your clothes after you have been outside. Stay inside when pollen counts are high. Vacuum once or twice a week. Use a vacuum mercury cell cleaner with a HEPA filter or a double-thickness filter. When should you call for help? Give an epinephrine shot if: You think you are having a severe allergic reaction. After giving an epinephrine shot, call 911, even if you feel better. Call 911 if: You have symptoms of a severe allergic reaction. These may include: ? Sudden raised, red areas (hives) all over your body. ? Swelling of the throat, mouth, lips, or tongue. ? Trouble breathing. ? Passing out (losing consciousness). Or you may feel very lightheaded or suddenly feel weak, confused, or restless. You have been given an epinephrine shot, even if you feel better. Call your doctor now or seek immediate medical care if: You have symptoms of an allergic reaction, such as: ? A rash or hives (raised, red areas on the skin). ? Itching. ? Swelling. ? Belly pain, nausea, or vomiting. Watch closely for changes in your health, and be sure to contact your doctor if: You do not get better as expected. Where can you learn more? Log into your personal health record on https://VMTurbot.Crescentrating and enter J912 in the Education box to learn more about Seasonal Allergies: Care Instructions. Current as of: November 09, 2018 Content Version: 12.3 8605-0406 [employer]. Care instructions adapted under license by your healthcare professional. If you have questions about a medical condition or this instruction, always ask your healthcare professional. [employer] disclaims any warranty or liability for your use of this information. Learning About Bariatric Surgery What is bariatric surgery? Bariatric surgery is surgery to help you lose weight. This type of surgery is only used for people who are very overweight and have not been able to lose weight with diet and exercise. This surgery makes the stomach smaller. Some types of surgery also change the connection between your stomach and intestines. How is bariatric surgery done? Bariatric surgery may be either open or laparoscopic. Open surgery is done through a large cut (incision) in the belly. Laparoscopic surgery is done through several small cuts. The doctor puts a lighted tube, or scope, and other surgical tools through small cuts in your belly. The doctor is able to see your organs with the scope. There are different types of bariatric surgery. Gastric sleeve surgery The surgery is usually done through several small incisions in the belly. The doctor removes more than half of your stomach. This leaves a thin sleeve, or tube, that is about the size of a banana. Because part of your stomach has been removed, this can't be reversed. Tracey-en-Y gastric bypass surgery Tracey-en-Y (say jean claude-en-why ) surgery changes the connection between the stomach and the intestines. The doctor separates a section of your stomach from the rest of your stomach. This makes a small pouch. The new pouch will hold the food you eat. The doctor connects the stomach pouch to the middle part of the small intestine. Gastric banding surgery The surgery is usually done through several small incisions in the belly. The doctor wraps a band around the upper part of the stomach. This creates a small pouch. The small size of the pouch means that you will get full after you eat just a small amount of food. The doctor can inflate or deflate the band to adjust the size. This lets the doctor adjust how quickly food passes from the new pouch into the stomach. It does not change the connection between the stomach and the intestines. What can you expect after the surgery? You may stay in the hospital for one or more days after the surgery. How long you stay depends on the type of surgery you had. Most people need 2 to 4 weeks before they are ready to get back to their usual routine. For the first 2 to 6 weeks after surgery, you probably will need to follow a liquid or soft diet. Bit by bit, you will be able to eat more solid foods. Your doctor may advise you to work with a dietitian. This way you'll be sure to get enough protein, vitamins, and minerals while you are losing weight. Even with a healthy diet, you may need to take vitamin and mineral supplements. After surgery, you will not be able to eat very much at one time. You will get full quickly. Try not to eat too much at one time or eat foods that are high in fat or sugar. If you do, you may vomit, get stomach pain, or have diarrhea. You probably will lose weight very quickly in the first few months after surgery. As time goes on, your weight loss will slow down. You will have regular doctor visits to check how you are doing. Think of bariatric surgery as a tool to help you lose weight. It isn't an instant fix. You will still need to eat a healthy diet and get regular exercise. This will help you reach your weight goal and avoid regaining the weight you lose. Follow-up care is a kilpatrick part of your treatment and safety. Be sure to make and go to all appointments, and call your doctor if you are having problems. It's also a good idea to know your test resultsand keep a list of the medicines you take. Where can you learn more? Log into your personal health record on https://VMTurbot.Crescentrating and enter G469 in the Education box to learn more about Learning About Bariatric Surgery. Current as of: October 30, 2018 Content Version: 12.3 2211-8897 [employer]. Care instructions adapted under license by your healthcare professional. If you have questions about a medical condition or this instruction, always ask your healthcare professional. [employer] disclaims any warranty or liability for your use of this information. Hypothyroidism: Care Instructions Your Care Instructions You have hypothyroidism, which means that your body is not making enough thyroid hormone. This hormone helps your body use energy. If your thyroid level is low, you may feel tired, be constipated, have an increase in your blood pressure, or have dry skin or memory problems. You may also get cold easily, even when it is warm. Women with low thyroid levels may have heavy menstrual periods. A blood test to find your thyroid-stimulating hormone (TSH) level is used to check for hypothyroidism. A high TSH level may mean that you have low thyroid. When your body is not making enough thyroidhormone, TSH levels rise in an effort to make the body produce more. The treatment for hypothyroidism is to take thyroid hormone pills. You should start to feel better in 1 to 2 weeks. But it can take several months to see changes in the TSH level. You will need regular visits with your doctor to make sure you have the right dose of medicine. Most people need treatment for the rest of their lives. You will need to see your doctor regularly to have blood tests and to make sure you are doing well. Follow-up care is a kilpatrick part of your treatment and safety. Be sure to make and go to all appointments, and call your doctor if you are having problems. It's also a good idea to know your test resultsand keep a list of the medicines you take. How can you care for yourself at home? Take your thyroid hormone medicine exactly as prescribed. Call your doctor if you think you are having a problem with your medicine. Most people do not have side effects if they take the right amountof medicine regularly. ? Take the medicine 30 minutes before breakfast, and do not take it with calcium, vitamins, or iron. ? Do not take extra doses of your thyroid medicine. It will not help you get better any faster, andit may cause side effects. ? If you forget to take a dose, do NOT take a double dose of medicine. Take your usual dose the next day. Tell your doctor about all prescription, herbal, or ahfn-txm-lkdwibc products you take. Take care of yourself. Eat a healthy diet, get enough sleep, and get regular exercise. When should you call for help? Call 911 anytime you think you may need emergency care. For example, call if: You passed out (lost consciousness). You have severe trouble breathing. You have a very slow heartbeat (less than 60 beats a minute). You have a low body temperature (95 F or below). Call your doctor now or seek immediate medical care if: You feel tired, sluggish, or weak. You have trouble remembering things or concentrating. You do not begin to feel better 2 weeks after starting your medicine. Watch closely for changes in your health, and be sure to contact your doctor if you have any problems. Where can you learn more? Log into your personal health record on https://Join The Players.Crescentrating and enter N862 in the Education box to learn more about Hypothyroidism: Care Instructions. Current as of: March 01, 2019 Content Version: 12.3 3606-8556 [employer]. Care instructions adapted under license by your healthcare professional. If you have questions about a medical condition or this instruction, always ask your healthcare professional. [employer] disclaims any warranty or liability for your use of this information. Asthma in Adults: Care Instructions Your Care Instructions During an asthma attack, your airways swell and narrow as a reaction to certain things (triggers). This makes it hard to breathe. You may be able to prevent asthma attacks if you avoid the things that set off your asthma symptoms. Keeping your asthma under control and treating symptoms before they get bad can help you avoid severe attacks. If you can control your asthma, you may be able to do all of your normal daily activities. You may also avoid asthma attacks and trips to the hospital. Follow-up care is a kilpatrick part of your treatment and safety. Be sure to make and go to all appointments, and call your doctor if you are having problems. It's also a good idea to know your test resultsand keep a list of the medicines you take. How can you care for yourself at home? Follow your asthma action plan so you can manage your symptoms at home. An asthma action plan will help you prevent and control airway reactions and will tell you what to do during an asthma attack. If you do not have an asthma action plan, work with your doctor to build one. Take your asthma medicine exactly as prescribed. Medicine plays an important role in controlling asthma. Talk to your doctor right away if you have any questions about what to take and how to take it. ? Use your quick-relief medicine when you have symptoms of an attack. Quick- relief medicine often is an albuterol inhaler. Some people need to use quick- relief medicine before they exercise. ? Take your controller medicine every day, not just when you have symptoms. Controller medicine is usually an inhaled corticosteroid. The goal is to prevent problems before they occur. Do not use your controller medicine to try to treat an attack that has already started. It does not work fast enough to help. ? If your doctor prescribed corticosteroid pills to use during an attack, take them as directed. They may take hours to work, but they may shorten the attack and help you breathe better. ? Keep your quick-relief medicine with you at all times. Talk to your doctor before using other medicines. Some medicines, such as aspirin, can cause asthmaattacks in some people. Check yourself for asthma symptoms to know which step to follow in your action plan. Watch for things like being short of breath, having chest tightness, coughing, and wheezing. Also notice if symptoms wake you up at night or if you get tired quickly when you exercise. If you have a peak flow meter, use it to check how well you are breathing. This can help you predict when an asthma attack is going to occur. Then you can take medicine to prevent the asthma attack or make it less severe. See your doctor regularly. These visits will help you learn more about asthma and what you can do to control it. Your doctor will monitor your treatment to make sure the medicine is helping you. Keep track of your asthma attacks and your treatment. After you have had an attack, write down whattriggered it, what helped end it, and any concerns you have about your asthma action plan. Take your diary when you see your doctor. You can then review your asthma action plan and decide if it is working. Do not smoke or allow others to smoke around you. Avoid smoky places. Smoking makes asthma worse. If you need help quitting, talk to your doctor about stop- smoking programs and medicines. These can increase your chances of quitting for good. Learn what triggers an asthma attack for you, and avoid the triggers when you can. Common triggers include colds, smoke, air pollution, dust, pollen, mold, pets, cockroaches, stress, and cold air. Avoid colds and the flu. Get a pneumococcal vaccine shot. If you have had one before, ask your doctor whether you need a second dose. Get a flu vaccine every fall. If you must be around people with colds or the flu, wash your hands often. When should you call for help? Call 911 anytime you think you may need emergency care. For example, call if: You have severe trouble breathing. Call your doctor now or seek immediate medical care if: Your symptoms do not get better after you have followed your asthma action plan. You cough up yellow, dark brown, or bloody mucus (sputum). Watch closely for changes in your health, and be sure to contact your doctor if: Your coughing and wheezing get worse. You need to use quick-relief medicine on more than 2 days a week (unless it is just for exercise). You need help figuring out what is triggering your asthma attacks. Where can you learn more? Log into your personal health record on https://Join The Players.[employer].Tripping and enter P597 in the Education box to learn more about Asthma in Adults: Care Instructions. Current as of: January 11, 2019 Content Version: 12.3 3547-7894 [employer]. Care instructions adapted under license by your healthcare professional. If you have questions about a medical condition or this instruction, always ask your healthcare professional. [employer] disclaims any warranty or liability for your use of this information. documented in this encounter* Patient Instructions* Stormy Webber CNP - 08/16/2020 3:41 PM EST 1. Muscle spasm cyclobenzaprine (FLEXERIL) 5 MG tablet Continue Tylenol, icy hot, and heat/ice as needed for pain. Add Flexeril up to 3 x/day as needed for muscle spasms. documented in this encounter History of Present Illness * SpringSofi CNP - 09/19/2018 8:53 AM EST Subjective Patient ID: Heidy Kwon is a 28 y.o. female. Patient is here today to establish care. She is new to this provider and new to this practice. She was seen previously by Karen Palomares CNP through [facility]. She is here today with concerns of abnormal periods, fatigue, hair loss, and a 30# weight gain in the past 6 months. She is followed by [facility] [facility] for fertility issues, her is present and they are both interested in getting . She states she has been eating healthy and doing the keto diet off and on with no improvement of herweight. She states that she has also watched calories and was only eating 1800 kcal a day. She states she noted about one year ago in MyChart her TSH was over 7 and this was never rechecked or addressed. She is very frustrated at this time with lack of answers and lack of improvement with her health. Anxiety: Patient complains of anxiety disorder. She has the following symptoms: difficulty concentrating, fatigue, irritable. Onset of symptoms was approximately 2 years ago, stable since that time. She denies current suicidal and homicidal ideation. Family history significant for unsure.Possible organic causes contributing are: endocrine/metabolic, nutritional. Risk factors: none Previous treatment includes BuSpar and none. She complains of the following side effects from the treatment: none. Hypothyroidism: Patient presents for evaluation of thyroid function. Symptoms consist of fatigue, weight gain, swelling, anxiousness, change in skin, nails, or hair, heat intolerance, menorrhagia. Symptoms have present for a few months. The symptoms are moderate. The problem has been gradually worsening. Previous thyroid studies include; unknown per patient. The following portions of the patient's history were reviewed and updated as appropriate: allergies, current medications, past family history, past medical history, past social history, past surgicalhistory and problem list. Review of Systems Constitutional: Negative for activity change, appetite change and unexpected weight change. HENT: Positive for congestion, postnasal drip and rhinorrhea. Negative for hearing loss, sinus pressure, sinus pain and sneezing. Recovering from URI Eyes: Negative for photophobia and visual disturbance. Respiratory: Negative for cough, chest tightness, shortness of breath and wheezing. Cardiovascular: Negative for chest pain. Gastrointestinal: Negative for nausea and vomiting. Endocrine: Negative for polydipsia, polyphagia and polyuria. Genitourinary: Positive for vaginal bleeding. Negative for dyspareunia, dysuria, frequency, genitalsores, urgency, vaginal discharge and vaginal pain. Musculoskeletal: Negative for arthralgias, back pain and myalgias. Skin: Positive for rash (dry skin at bra line on back). Neurological: Negative for dizziness, light-headedness and headaches. Hematological: Negative. Psychiatric/Behavioral: Negative for dysphoric mood and sleep disturbance. Objective Physical Exam Constitutional: Vital signs are normal. She appears well-developed and well-nourished. Morbidly obese pleasant female HENT: Head: Normocephalic. Right Ear: External ear normal. A middle ear effusion is present. Left Ear: External ear normal. A middle ear effusion is present. Nose: Mucosal edema and rhinorrhea present. Right sinus exhibits no maxillary sinus tenderness and no frontal sinus tenderness. Left sinus exhibits no maxillary sinus tenderness and no frontal sinus tenderness. Mouth/Throat: Uvula is midline, oropharynx is clear and moist and mucous membranes are normal. Eyes: Pupils are equal, round, and reactive to light. Conjunctivae, EOM and lids are normal. Neck: Trachea normal, normal range of motion and full passive range of motion without pain. Neck supple. No JVD present. Carotid bruit is not present. No thyroid mass and no thyromegaly present. Cardiovascular: Normal rate, regular rhythm, normal heart sounds and normal pulses. No murmur heard. Pulmonary/Chest: Effort normal. She has no decreased breath sounds. She has no wheezes. She has no rhonchi. She has no rales. Abdominal: Soft. Normal appearance and bowel sounds are normal. There is no tenderness. There is noCVA tenderness. No hernia. Lymphadenopathy: Head (right side): Tonsillar adenopathy present. No submandibular adenopathy present. Head (left side): Tonsillar adenopathy present. No submandibular adenopathy present. She has no cervical adenopathy. Neurological: She is alert. She has normal strength. No cranial nerve deficit. Skin: Skin is warm, dry and intact. No rash noted. Psychiatric: She has a normal mood and affect. Her speech is normal and behavior is normal. Thoughtcontent normal. Vitals: 09/19/18 0817 BP: 128/83 BP Location: Left arm Patient Position: Sitting BP Cuff Size: Adult Pulse: 98 Temp: 97.6 F (36.4 C) TempSrc: Oral SpO2: 98% Weight: (!) 163.3 kg (360 lb) Height: 5' 5 Body mass index is 59.91 kg/m . Medication List Accurate as of 09/19/18 11:59 PM. If you have any questions, ask your nurse or doctor. CHANGE how you take these medications metFORMIN 500 MG 24 hr tablet Commonly known as: GLUCOPHAGE-XR Take 2 (two) tablets (1,000 mg total) by mouth daily with breakfast Reasons: disease of ovaries with cysts. What changed: how much to take when to take this Changed by: Sofi Verdugo CNP CONTINUE taking these medications albuterol 2.5 mg /3 mL (0.083 %) nebulizer solution Commonly known as: PROVENTIL Take 3 mL (2.5 mg total) by nebulization every 6 (six) hours as needed for wheezing. ALBUTEROL INHL busPIRone 5 MG tablet Commonly known as: BUSPAR TAKE ONE TABLET BY MOUTH TWICE DAILY diptheria, tetanus toxoid, acellular pertusssis 2 Lf-(2.5-5-3-5 mcg)-5Lf/0.5 mL injection Commonly known as: ADACEL medroxyPROGESTERone 10 MG tablet Commonly known as: PROVERA Take 1 (one) tablet (10 mg total) by mouth 2 (two) times a day Take 10mg 2 x day, if no change [id number] 2 x day. STOP taking these medications amoxicillin 500 MG tablet Commonly known as: AMOXIL Stopped by: Sofi Verdugo CNP MICROGESTIN 1.5/30 (21) 1.5-30 mg-mcg Tab Generic drug: norethindrone ac-eth estradiol Stopped by: Sofi Verdugo CNP norethindrone-ethinyl estradiol-iron 1.5 mg-30 mcg (21)/75 mg (7) tablet Commonly known as: LOESTRIN FE 1.5/30 (28-DAY) Stopped by: Sofi Verdugo CNP Where to Get Your Medications These medications were sent to [facility] [address] [place], [place] [id number] metFORMIN 500 MG 24 hr tablet Allergies Allergen Reactions Zithromax [Azithromycin] GI Intolerance Past Medical History: Diagnosis Date Anxiety 2017 Asthma 1992 Depression 2017 Insulin resistance 10/2017 Seasonal allergies 2004 Past Surgical History: Procedure Laterality Date D&C HYSTEROSCOPY OPERATIVE 10/15/2017 Assessment/Plan: Problem List Items Addressed This Visit Other Insulin resistance - Primary It is important we get you back on your Metformin, this is the best and safest drug for insulin resistance, prediabetes, PCOS, and metabolic syndrome. Relevant Orders POC Glucose Device (Completed) POC Glycosylated Hemoglobin (Hb A1C) (Completed) CBC and Differential Comprehensive Metabolic Panel Insulin, Total Home sleep test DUB (dysfunctional uterine bleeding) This could very much all be related to metabolic syndrome or hypothyroidism. Lets see what your labs show and go from there. Anxiety Right now you are taking Buspar as needed 5mg BID. I do not believe this is an adequate dose but I do not want to add anything else at this time due to restarting the Metformin. One med and one side effect at a time. Will reevaluate this in 2 weeks. Relevant Orders TSH with Reflex Free T4 T3, Free Morbid obesity with body mass index (BMI) of 50.0 to 59.9 in adult (FORM[facility]LY [facility]) Look online at [employer] and read the book It Starts with Food Eat meat, vegetables, nuts and seeds, some fruit, very little starch and absolutely no sugar. If you can grow it or kill it, then that's what you should be eating..... Chicken, turkey, fish pork, beef, ALL vegetables and fruit. If it is processed or you can not pronounce the ingredients, do not eat it! Shop the outside perimeter of the grocery store. Listen to your body, if you are hungry all the time you may need to increase your intake of healthyveggies and small healthy snacks. Eat whole, healthy foods and you won't need to count calories. Increase your activity level; the more you move your body the healthier you will be and the better you will feel! Diet and Exercise is not a fad, it really works! Relevant Orders TSH with Reflex Free T4 T3, Free Lipid Panel Home sleep test Other Visit Diagnoses Need for vaccination Relevant Orders Tdap vaccine greater than or equal to 7yo IM (Completed) Goals None No data recorded For any new medications prescribed today, patient was educated about indications for the medication, how to take the medication and potential side effects of the medications. in this encounter* Angela Haskins MD - 04/02/2017 11:27 AM EDT Formatting of this note may be different from the original. Patient ID: Heidy Kwon is a 27 y.o. female Subjective: Patient is referred for further evaluation and treatment of hyperinsulinemia. She states that she is having problems with irregular menstrual periods and infertility. She had regular menstrual cyclesunt2013. She states that she took oral contraceptives from 2009 until 2011. After she stopped oral contraceptives, she has had very irregular menstrual cycles she has had prolonged menstrual periods which can last up to 40 days. She has experienced weight gain, in spite of exercising and watching her diet. She was evaluated by Dr. Rodriguez, who performed laboratory testing on 12/07/16. She was notedto have an elevated insulin level of 82.2. However this was not a fasting insulin level. She reports her insulin level was rechecked in February (results not available today), and at that point she was started on metformin. She started with metformin 500 mg daily, and then increase to twice daily. She has tolerated the Metformin without significant GI side effects. She states that she has just had her first menstrual period after starting metformin. However, she checks her LH levels, and stated that she did not have an LH surge during this menstrual cycle. Review of Systems: Review of Systems Constitutional: Positive for unexpected weight change. Negative for appetite change and fatigue. HENT: Negative for trouble swallowing and voice change. Eyes: Negative for pain, redness and visual disturbance. Respiratory: Negative for cough, chest tightness, shortness of breath and wheezing. Cardiovascular: Negative for chest pain, palpitations and leg swelling. Gastrointestinal: Negative for abdominal pain, constipation, diarrhea, nausea and vomiting. Endocrine: Negative for cold intolerance, heat intolerance, polydipsia, polyphagia and polyuria. Genitourinary: Negative for dysuria and frequency. Musculoskeletal: Negative for arthralgias, gait problem, myalgias and neck pain. Neurological: Negative for tremors, weakness, numbness and headaches. Psychiatric/Behavioral: Negative for sleep disturbance. The following portions of the patient's history were reviewed and updated as appropriate: allergies, current medications, past family history, past medical history, past social history, past surgicalhistory and problem list. Allergies Allergen Reactions Zithromax [Azithromycin] GI Intolerance Current Outpatient Prescriptions Medication Sig Dispense Refill metFORMIN (GLUCOPHAGE) 500 MG tablet Take 1 tablet TID with meals. 90 tablet 6 dexamethasone (DECADRON) 1 MG tablet Take 1 tablet at 11 PM on night before cortisol level. 1 tablet 0 No current facility-administered medications for this visit. Past Medical History: Diagnosis Date Asthma Past Surgical History: Procedure Laterality Date NO PAST SURGERIES Family History Problem Relation Age of Onset Asthma Mother Bipolar disorder Mother Depression Mother Hypertension Father Depression Sister Hypertension Sister Heart disease Sister Asthma Sister Cancer Maternal Aunt Diabetes Paternal Grandmother Diabetes Paternal Grandfather Diabetes Cousin Social History Social History Marital status: Spouse name: N/A Number of children: N/A Years of education: N/A Occupational History Not on file. Social History Main Topics Smoking status: Never Smoker Smokeless tobacco: Never Used Alcohol use No Drug use: No Sexual activity: Not on file Other Topics Concern Not on file Social History Narrative Objective: BP (!) 124/92 Pulse 88 Ht 5' 5 Wt (!) 149.2 kg (329 lb) BMI 54.75 kg/m2 Wt Readings from Last 3 Encounters: 04/02/17 (!) 149.2 kg (329 lb) 01/11/17 (!) 148.8 kg (328 lb) Physical Exam: Physical Exam Constitutional: She is oriented to person, place, and time. She appears well- developed and well-nourished. No distress. HENT: Head: Normocephalic and atraumatic. Eyes: Conjunctivae and EOM are normal. Pupils are equal, round, and reactive to light. No scleral icterus. Neck: Normal range of motion. Neck supple. No thyromegaly present. Cardiovascular: Normal rate, regular rhythm and normal heart sounds. No murmur heard. Pulmonary/Chest: Effort normal and breath sounds normal. No respiratory distress. She has no wheezes. She has no rales. Abdominal: Soft. There is no tenderness. Pale striae Musculoskeletal: She exhibits no edema. Lymphadenopathy: She has no cervical adenopathy. Neurological: She is alert and oriented to person, place, and time. No cranial nerve deficit. She exhibits normal muscle tone. Coordination normal. Skin: Skin is warm and dry. No erythema. Psychiatric: She has a normal mood and affect. Her behavior is normal. Judgment and thought contentnormal. 12/07/16 Total insulin 82.2, glucose 103 (nonfasting) WBC 6.66, hemoglobin 12.9, hematocrit 40.7, platelet 360,000 Prolactin 16.6 TSH 2.94, FSH 6.6, LH 7.3 Assessment: Dx: Problem List Items Addressed This Visit None Visit Diagnoses Insulin resistance - Primary Relevant Orders T4, Free TSH Insulin, Total Comprehensive Metabolic Panel Menstrual disorder Relevant Orders Cortisol, AM T4, Free TSH Insulin, Total Comprehensive Metabolic Panel Other specified hypoglycemia Patient is a 27-year-old female with insulin resistance, irregular menstrual periods, and infertility. She has been started on metformin 500 mg twice daily, and has had a menstrual cycle since starting that approximately 2 months ago. She and her are very interested in conceiving. Therefore, we will increase her to the full dose of 500 mg metformin 3 times daily to see if that improves her menstrual cycle regularity and physiology. I have advised her that if she does not become over the next 6 months well having regular menstrual periods, she may need to see a fertility specialist. Will rule out cortisol excess with a dexamethasone suppression test. Will recheck insulin, met abolic panel, and thyroid function test before next appointment in 4 months. Plan: 1. Increase metformin to 500 mg 3 times daily. 2. Dexamethasone suppression test. 3. Recheck TFTs, insulin, and CMP before next appointment. Attempt to obtain results of more recentlab testing which was performed in February 2017. 4. Recheck in 4 months. Return in about 4 months (around 08/02/2017). Braeden Haskins MD in this encounter* Stormy Webber, 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 - 10/06/2019 8:07 AM EST OFFICE VISIT PROGRESS NOTE HPI Establishing- Gastric bypass surgery in the future. Starting with diet and exercise changes Diet- limited calorie intake to 2345-4121/day. Meets with wood products manufacturer monthly. Exercise- She has started an exercise program that has started with walking and slow introduction into physical activities Asthma- Hospitalized x1 in the past. Asthma is well controlled on Albuterol inhaler. Uses inhaler most when ill. Pre treats with inhaler before heavy activity or high humidity. Neb treatment with illness- last use was 6 months ago. Thyroid- was on thyroid medications and was taken off medication d/t improved TSH by previous provider. Most recent TSH on 08/07/2019 was 5.683. Will restart Thyroid medication and recheck in 4 weeks. Hyperlipidemia- stopped cholesterol medication d/t infertility and attempting to get . Patient is not currently trying to get pregant. Last lap values warrant medication. Depression/anxiety- PHQ9 score is 0. No thoughts of harming self or others. No issues with sadness or mood changes at current. Seasonal Allergies- Not currently having issues with allergies. Only takes OTC allergy medication as needed during the summer. 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 Cervical Cancer Screening- [facility] PAP was [facility]. No abnormal PAPs. Breast Cancer Screeing- self breast exam Dental exams/cleaning- every year. Eye exam- last week most recent. Yearly. Safety- wears a seat belt. The following portions of the patient's history were reviewed and updated as appropriate: allergies, current medications and problem list. Family History Problem Relation Age of Onset Asthma Mother Bipolar disorder Mother Depression Mother Hypertension Father Depression Sister Hypertension Sister Heart disease Sister Asthma Sister Cancer Maternal Aunt Diabetes Paternal Grandmother Diabetes Paternal Grandfather Diabetes Cousin Social History Socioeconomic History Marital status: Spouse name: Not on file Number of children: Not on file Years of education: Not on file Highest education level: Not on file Occupational History Not on file Social Needs Financial resource strain: Not on file Food insecurity Worry: Never true Inability: Never true Transportation needs Medical: Not on file Non-medical: Not on file Tobacco Use Smoking status: Never Smoker Smokeless tobacco: Never Used Substance and Sexual Activity Alcohol use: Yes Drug use: No Sexual activity: Yes Partners: Male Lifestyle Physical activity Days per week: Not on file Minutes per session: Not on file Stress: Not on file Relationships Social connections Talks on phone: Not on file Gets together: Twice a week Attends yarsanism service: Not on file Active member of club or organization: Not on file Attends meetings of clubs or organizations: Not on file Relationship status: Not on file Other Topics Concern Not on file Social History Narrative Not on file Past Surgical History: Procedure Laterality Date D&C HYSTEROSCOPY OPERATIVE 10/15/2017 Allergies Allergen Reactions Zithromax [Azithromycin] GI Intolerance Review of Systems Review of Systems Constitutional: Negative. HENT: Negative. Eyes: Negative. Respiratory: Negative. Cardiovascular: Negative. Gastrointestinal: Negative. Endocrine: Negative. Genitourinary: Negative. Musculoskeletal: Negative. Skin: Negative. Allergic/Immunologic: Positive for environmental allergies. Neurological: Negative. Hematological: Negative. Psychiatric/Behavioral: Negative. Vitals: 10/06/19 0800 BP: 125/77 BP Location: Right arm Patient Position: Sitting BP Cuff Size: Adult Pulse: 74 Temp: 97.5 F (36.4 C) TempSrc: Oral SpO2: 97% Weight: (!) 164.7 kg (363 lb) Height: 5' 5.5 Body mass index is 59.49 kg/m . Physical Exam Physical Exam Constitutional: She is oriented to person, place, and time. She appears well-nourished. HENT: Head: Normocephalic. Right Ear: External ear normal. Left Ear: External ear normal. Nose: Nose normal. Mouth/Throat: Oropharynx is clear and moist. Eyes: Pupils are equal, round, and reactive to light. Conjunctivae and EOM are normal. Neck: Normal range of motion. No thyromegaly present. Cardiovascular: Normal rate, regular rhythm, normal heart sounds and intact distal pulses. No murmur heard. Pulmonary/Chest: Breath sounds normal. No respiratory distress. Abdominal: Soft. Bowel sounds are normal. She exhibits no distension. There is no abdominal tenderness. Musculoskeletal: Normal range of motion. Neurological: She is alert and oriented to person, place, and time. No cranial nerve deficit. Skin: Skin is warm and dry. Psychiatric: She has a normal mood and affect. Her behavior is normal. Judgment and thought contentnormal. Nursing note and vitals reviewed. No data recorded Assessment/Plan Problem List Items Addressed This Visit None Visit Diagnoses Routine general medical examination at a health care facility - Primary Hypothyroidism, unspecified type Start back on thyroid medication and have levels rechecked. Relevant Medications levothyroxine (SYNTHROID, LEVOTHROID) 50 MCG tablet Other Relevant Orders TSH with Reflex Free T4 Hyperlipidemia, unspecified hyperlipidemia type Start back on cholesterol medication. Relevant Medications atorvastatin (LIPITOR) 10 MG tablet Mild intermittent asthma, unspecified whether complicated Chronic, stable. well controlled on current inhalers and nebs as needed Seasonal allergies Chronic, stable. well controlled on current medications Class 3 severe obesity with body mass index (BMI) of 50.0 to 59.9 in adult, unspecified obesity type, unspecified whether serious comorbidity present (HCC) chronic, stable. Follow diet plan and exercise as set up by DANIEL physicans. Goals None If any referrals were placed at today's visit the patient was instructed to call the office if theyhavn't heard anything about the referral within 2 weeks of today's visit. For any new medications prescribed today, patient was educated about indications for the medication, how to take the medication and potential side effects of the medications. documented in this encounter* Stormy Webber CNP - 08/16/2020 12:57 PM EST [facility] [address] [facility] [address] [facility] [phone] Virtual Visit [facility] 08/16/20 Stormy Webber CNP Provider Location: [place] Patient Location Philosophy Instructor: None Patient Location: home Patient: Heidy Kwon Date of : 1990 (30 y.o. female) PCP: Stormy Webber CNP I instructed patient to contact me promptly with additional concerns. Virtual Visit Consent Statement: I discussed risks, benefits and alternatives of telemedicine consultation with the patient (and any accompanying persons) including the risks that the patient s personal health details and medical records will be discussed over interactive video/audio/telecommunication technology, may be recorded, and that there are inherent diagnostic limitations compared to [id number] evaluations. They elected to proceed with the telemedicine consultation. HPI Back pain- Injury Sat and pain started Sun. She reports she was at [facility] and was involved in an injury while pushing a grocery cart while sitting on an electric cart- man fell on her pushing her body forward against the steering wheel. She now reports pain to Mid (medal) back pain that radiates to LT lateral back. OTC pain medications, Icy hot topical, heat and ice without relief of pain. Increased pain with twisting, turning to the left, laying on side, or raising arms above head. Improves when sitting still. No worsening pain with deep breath or cough. She reports pain feel like a muscle spasm. The following portions of the patient's history were reviewed and updated as appropriate: allergies, current medications and problem list. The patient's surgical, family, and social history was reviewed and updated as appropriate. Review of Systems Review of Systems Constitutional: Negative. HENT: Negative. Respiratory: Negative. Cardiovascular: Negative. Gastrointestinal: Negative. Genitourinary: Negative. Musculoskeletal: Positive for back pain and myalgias. Neurological: Negative. Psychiatric/Behavioral: Negative. There were no vitals filed for this visit. There is no height or weight on file to calculate BMI. Physical Exam Physical Exam Constitutional: She is oriented to person, place, and time. She appears well- developed and well-nourished. HENT: Head: Normocephalic. Eyes: Pupils are equal, round, and reactive to light. Conjunctivae and EOM are normal. Neck: Normal range of motion. Pulmonary/Chest: Effort normal. No respiratory distress. Abdominal: Soft. She exhibits no distension. There is no abdominal tenderness. Musculoskeletal: Normal range of motion. General: No edema. Neurological: She is alert and oriented to person, place, and time. No cranial nerve deficit. Skin: No rash noted. No erythema. Psychiatric: She has a normal mood and affect. Her behavior is normal. Nursing note reviewed. OARRS/NARxCHECK Report Received and Assessed: No data found Date controlled substance agreement signed: No data found Date of last drug screen: No data found Functional Assessment: No data found Assessment/Plan Problem List Items Addressed This Visit None Visit Diagnoses Muscle spasm - Primary Continue Tylenol, icy hot, and heat/ice as needed for pain. Add Flexeril up to 3 x/day as needed for muscle spasms. Relevant Medications cyclobenzaprine (FLEXERIL) 5 MG tablet Goals None If any referrals were placed at today's visit the patient was instructed to call the office if theyhavn't heard anything about the referral within 2 weeks of today's visit. For any new medications prescribed today, patient was educated about indications for the medication, how to take the medication and potential side effects of the medications. documented in this encounter Assessments Diagnosis Insulin resistance- Primary Other abnormal glucose Anxiety Anxiety state, unspecified Morbid obesity with body mass index (BMI) of 50.0 to 59.9 in adult ([facility]) DUB (dysfunctional uterine bleeding) Other disorder of menstruation and other abnormal bleeding from female genital tract Need for vaccination Need for prophylactic vaccination and inoculation against unspecified single disease Diagnosis Insulin resistance - Primary Other abnormal glucose Menstrual disorder Other specified hypoglycemia Diagnosis Routine general medical examination at a health care facility Hypothyroidism, unspecified type Hyperlipidemia, unspecified hyperlipidemia type Mild intermittent asthma, unspecified whether complicated Seasonal allergies Allergic rhinitis, cause unspecified Class 3 severe obesity with body mass index (BMI) of 50.0 to 59.9 in adult, unspecified obesity type, unspecified whether serious comorbidity present ([facility]) Diagnosis Muscle spasm- Primary Spasm of muscle Health Concerns Problem Noted Date Diagnosed Date [facility] Education - [facility] 03/04/2023 [place] - [place] 03/04/2023 Problem Noted Date Diagnosed Date [facility] Education - [facility] 03/04/2023 Education - [place] 03/04/2023 Problem Noted Date Diagnosed Date [facility] - [facility] 03/04/2023 Education - [place] 03/04/2023 Problem Noted Date Diagnosed Date [facility] - [facility] 03/04/2023 Education - [place] 03/04/2023 Problem Noted Date Diagnosed Date [facility] - [facility] 03/04/2023 Education - [place] 03/04/2023 Problem Noted Date Diagnosed Date [facility] - [facility] 03/04/2023 Education - [place] 03/04/2023 Problem Noted Date Diagnosed Date [facility] - [facility] 03/04/2023 Education - [place] 03/04/2023 Problem Noted Date Diagnosed Date [facility] Education - [facility] 03/04/2023 Education - [place] 03/04/2023 Problem Noted Date Diagnosed Date [facility] - [facility] 03/04/2023 Education - [place] 03/04/2023 Problem Noted Date Diagnosed Date [facility] - [facility] 03/04/2023 Education - [place] 03/04/2023 Problem Noted Date Diagnosed Date [facility] - [facility] 03/04/2023 Education - [place] 03/04/2023 Problem Noted Date Diagnosed Date [facility] - [facility] 03/04/2023 Education - [place] 03/04/2023 Problem Noted Date Diagnosed Date [facility] - [facility] 03/04/2023 Education - [place] 03/04/2023 Problem Noted Date Diagnosed Date [facility] - [facility] 03/04/2023 Education - [place] 03/04/2023 Additional Source Comments INFORMATION SOURCE (unrecogn ized section and content) DATE CREATED AUTHOR AUTHOR'S ORGANIZ ATION 10/13/2018 [facility] DATE CREATED AUTHOR AUTHOR'S ORGANIZ ATION 12/20/2019 [facility] DATE CREATED AUTHOR AUTHOR'S ORGANIZ ATION 08/28/2020 [facility] DATE CREATED AUTHOR AUTHOR'S ORGANIZ ATION 01/31/2022 [facility] DATE CREATED AUTHOR AUTHOR'S ORGANIZ ATION 03/03/2022 [facility] DATE CREATED AUTHOR AUTHOR'S ORGANIZ ATION 07/16/2023 [facility] DATE CREATED AUTHOR AUTHOR'S ORGANIZ ATION 08/18/2023 [facility] DATE CREATED AUTHOR AUTHOR'S ORGANIZ ATION 09/01/2023 [facility] DATE CREATED AUTHOR AUTHOR'S ORGANIZ ATION 09/19/2023 [facility] Reason for Visit (unrecogniz ed section and content) Status Reason Specialty Diagnoses / Procedures Referred By Contact Referred To Contact Closed Specialty Services Required/Patien t's Best Interest Endocrinology Diagnoses Other specified hypoglycemia Magno Rodriguez MD [address] [facility] [address] [place] [address] Angela Haskins MD [address] [address] Reason Comments New Patient est care/manage thyr oid levels Pre Op Cl [facility] gastric bypass Reason Comments Thyroid Problem Reason Comments Annual Exam Reason Comments Abdominal Pain Cramping since thi s AM. RLQ sharp pain, states took Clomid this month. Diarrhea 5-6 episodes since t his AM Reason Onset Date Comments Medication Refill 02/08/2023 Reason Comments Patient Question Reason Comments Received Outside Medical Records Reason Comments Care Reason Comments US Specialty Diagnoses / Procedures Referred By Brandy sky Referred To Contact [facility] Diagnoses associated with use of clomiphene, antepartum complicated by previous gastric bypass, antepartum Obesity in Encounter for care in first trimester of first 8 weeks gestation of Procedures NUCHAL TRANSLUCENCY WHI US NUCHAL TRANSLUCENCY 1ST GESTATION Yissel Ramon APRN.[facility] [address] [place] [address] [facility] [address] [place] [address] Referral ID Status Reason Start Date Expiration Date Visits Requested Visits Authorized [id number] Authorized Auto-Generat ed Referral 01/03/2023 08/04/2023 20 20 Reason Onset Date Comments Care 04/02/2023 Reason Comments Establish Care Med Refill Reason Comments Question (OB Question) Reason Onset Date Comments Care 05/23/2023 Reason Comments FYI-No Action Needed Reason Comments Abdominal Pain Patient states, Sund ay around noon, described as sharp RUQ pain, eating and drinking causes RUQ pain, slight cough noted on arrival. Patient was at [facility] yesterday had an US of kidney, pancreas, and gallbladder in which pt reports were all normal. Patient reports they gave her nausea medication as well and did a UA which showed inflammation but they wanted to culture before giving antibiotics. Pt denies vomiting, but reports a little nausea Reason Onset Date Comments Care 06/20/2023 Reason Comments Fall Fell on hands and kn ees. Did not sustain hit to abdomen Specialty Diagnoses / Procedures Referred By Brandy t Referred To Contact [facility] Diagnoses 29 weeks gestation of complicated by previous gastric bypass, antepartum Obesity affecting in third trimester, unspecified obesity type Procedures OBSTETRIC ULTRASOUND WHI US PREG UTERUS AFTER 1ST TRIMEST GESTATION Yissel Ramon APRN.[facility] [address] [place] [address] [facility] [address] [place] [address] Referral ID Status Reason Start Date Expiration Date Visits Requested Visits Authorized [id number] Authorized Auto-Generat ed Referral 08/15/2023 08/04/2024 20 20 Reason Onset Date Comments Care 09/16/2023 Reason Onset Date Comments Population Health Navigation Outreach 09/25/2023 OB/peds Assessment & Plan Note - Sofi Verdugo CNP - 09/19/2018 8:58 AM ESTAssessment & Plan Note - Sofi Verdugo CNP - 09/19/2018 8:57 AM EST Miscellaneous Notes (unrecog nized section and content) Associated Problem(s): DUB (dysfunctional uterine bleeding) This could very much all be related to metabolic syndrome or hypothyroidism. Lets see what your labs show and go from there. Associated Problem(s): Anxiety Right now you are taking Buspar as needed 5mg BID. I do not believe this is an adequate dose but I do not want to add anything else at this time due to restarting the Metformin. One med and one side effect at a time. Will reevaluate this in 2 weeks. Associated Problem(s): Insulin resistance It is important we get you back on your Metformin, this is the best and safest drug for insulin resistance, prediabetes, PCOS, and metabolic syndrome. Associated Problem(s): Morbid obesity with body mass index (BMI) of 50.0 to 59.9 in adult (HCC) Look online at [employer] and read the book It Starts with Food Eat meat, vegetables, nuts and seeds, some fruit, very little starch and absolutely no sugar. If you can grow it or kill it, then that's what you should be eating..... Chicken, turkey, fish pork, beef, ALL vegetables and fruit. If it is processed or you can not pronounce the ingredients, do not eat it! Shop the outside perimeter of the grocery store. Listen to your body, if you are hungry all the time you may need to increase your intake of healthy veggies and small healthy snacks. Eat whole, healthy foods and you won't need to count calories. Increase your activity level; the more you move your body the healthier you will be and the better you will feel! Diet and Exercise is not a fad, it really works! in this encounter Care Teams (unrecognized sec tion and content) Gate Keeper Relationship Specialty Start Date End Date Stormy Webber CNP PCP - General Nurse Practitioner 10/06/19 Gate Keeper Relationship Specialty Start Date End Date Stormy Webber CNP PCP - General Nurse Practitioner 10/06/19 Gate Keeper Relationship Specialty Start Date End Date Stormy Webber CNP [address] [place] [address] PCP - General Nurse Practitioner - Family 10/06/19 Gate Keeper Relationship Specialty Start Date End Date Stormy Webber CNP PCP - General Nurse Practitioner 10/06/19 Lauren Proctor CNP [address] [place] [address] PCP - PETER Attributed Provider - [employer] 03/11/18 08/04/50 Gate Keeper Relationship Specialty Start Date End Date Stormy Webber CNP PCP - General Nurse Practitioner - Family 10/06/19 Gate Keeper Relationship Specialty Start Date End Date Stormy Webber CNP PCP - General Nurse Practitioner 10/06/19 Lauren Proctor CNP [address] [place] [address] PCP - PETER Attributed Provider - [employer] 03/11/18 08/04/50 Gate Keeper Relationship Specialty Start Date End Date Maddie Barber APRN-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 [address] [facility] [address] [place] [address] PCP - General Family Medicine 04/11/23 Gate Keeper Relationship Specialty Start Date End Date Maddie Barber CNP [address] [facility] [address] [place] [address] PCP - General Nurse Practitioner - Family 05/28/23 Gate Keeper Relationship Specialty Start Date End Date Holli Kessler DO [address] [facility] [address] [place] [address] PCP - General Family Medicine 06/13/23 Gate Keeper Relationship Specialty [place] [address] [place] [address] PCP - General Family Medicine 07/03/23 Gate Keeper Relationship Specialty Start Date End Date Holli Kessler DO [address] [facility] [address] [place] [address] PCP - General Family Medicine 06/13/23 Scheduled Active and Recently Administ ered Medications (unrecognized section and content) Continuous Medication Order 01/21/2023 01/22/2023 01/23/2023 Sodium chloride 0.9% IV solution Intravenous, at 125 mL/hr, CONTINUOUS, Starting on Sat01/23/23 at 1945, Until Sat01/23/23 at 2359 1958 ($$New Bag$$ - Provider: Paty Ramirez RN)[id number] (Stopped - Provider: Paty Ramirez RN) Source Comments (unrecognize d section and content) In the event this informatio n is protected by the Federal Confidentiality of Alcohol and Drug Abuse Patient Records regulations: The Federal rules restrict any use of the information to criminally investigate or prosecute any alcohol or drug abuse patient.[facility] the event this information is protected by the Federal Confidentiality of Alcohol and Drug Abuse Patient Records regulations: The Federal rules restrict any use of the information to criminally investigate or prosecute any alcohol or drug abuse patient.[facility] the event this information is protected by the Federal Confidentiality of Alcohol and Drug Abuse Patient Records regulations: The Federal rules restrict any use of the information to criminally investigate or prosecute any alcohol or drug abuse patient.[facility] the event this information is protected by the Federal Confidentiality of Alcohol and Drug Abuse Patient Records regulations: The Federal rules restrict any use of the information to criminally investigate or prosecute any alcohol or drug abuse patient.[facility] the event this information is protected by the Federal Confidentiality of Alcohol and Drug Abuse Patient Records regulations: The Federal rules restrict any use of the information to criminally investigate or prosecute any alcohol or drug abuse patient.[facility] the event this information is protected by the Federal Confidentiality of Alcohol and Drug Abuse Patient Records regulations: The Federal rules restrict any use of the information to criminally investigate or prosecute any alcohol or drug abuse patient.[facility] the event this information is protected by the Federal Confidentiality of Alcohol and Drug Abuse Patient Records regulations: The Federal rules restrict any use of the information to criminally investigate or prosecute any alcohol or drug abuse patient.[facility] the event this information is protected by the Federal Confidentiality of Alcohol and Drug Abuse Patient Records regulations: The Federal rules restrict any use of the information to criminally investigate or prosecute any alcohol or drug abuse patient.[facility] the event this information is protected by the Federal Confidentiality of Alcohol and Drug Abuse Patient Records regulations: The Federal rules restrict any use of the information to criminally investigate or prosecute any alcohol or drug abuse patient.[facility] the event this information is protected by the Federal Confidentiality of Alcohol and Drug Abuse Patient Records regulations: The Federal rules restrict any use of the information to criminally investigate or prosecute any alcohol or drug abuse patient.[facility] the event this information is protected by the Federal Confidentiality of Alcohol and Drug Abuse Patient Records regulations: The Federal rules restrict any use of the information to criminally investigate or prosecute any alcohol or drug abuse patient.[facility] the event this information is protected by the Federal Confidentiality of Alcohol and Drug Abuse Patient Records regulations: The Federal rules restrict any use of the information to criminally investigate or prosecute any alcohol or drug abuse patient.[facility] the event this information is protected by the Federal Confidentiality of Alcohol and Drug Abuse Patient Records regulations: The Federal rules restrict any use of the information to criminally investigate or prosecute any alcohol or drug abuse patient.[facility] the event this information is protected by the Federal Confidentiality of Alcohol and Drug Abuse Patient Records regulations: The Federal rules restrict any use of the information to criminally investigate or prosecute any alcohol or drug abuse patient.[facility] the event this information is protected by the Federal Confidentiality of Alcohol and Drug Abuse Patient Records regulations: The Federal rules restrict any use of the information to criminally investigate or prosecute any alcohol or drug abuse patient.[facility] the event this information is protected by the Federal Confidentiality of Alcohol and Drug Abuse Patient Records regulations: The Federal rules restrict any use of the information to criminally investigate or prosecute any alcohol or drug abuse patient.[facility] the event this information is protected by the Federal Confidentiality of Alcohol and Drug Abuse Patient Records regulations: The Federal rules restrict any use of the information to criminally investigate or prosecute any alcohol or drug abuse patient.[facility] Hospital[facility] the event this information is protected by the Federal Confidentiality of Alcohol and Drug Abuse Patient Records regulations: The Federal rules restrict any use of the information to criminally investigate or prosecute any alcohol or drug abuse patient.[facility] the event this information is protected by the Federal Confidentiality of Alcohol and Drug Abuse Patient Records regulations: The Federal rules restrict any use of the information to criminally investigate or prosecute any alcohol or drug abuse patient.[facility] HospitalIn the event this information is protected by the Federal Confidentiality of Alcohol and Drug Abuse Patient Records regulations: The Federal rules restrict any use of the information to criminally investigate or prosecute any alcohol or drug abuse patient.[facility] the event this information is protected by the Federal Confidentiality of Alcohol and Drug Abuse Patient Records regulations: The Federal rules restrict any use of the information to criminally investigate or prosecute any alcohol or drug abuse patient.[facility] the event this information is protected by the Federal Confidentiality of Alcohol and Drug Abuse Patient Records regulations: The Federal rules restrict any use of the information to criminally investigate or prosecute any alcohol or drug abuse patient.[facility] FOR RECORDS PERTAINING TO PATIENTS WHO ARE OR HAVE BEEN ENROLLED IN A CHEMICAL DEPENDENCY/SUBSTANCEABUSE PROGRAM, SOME INFORMATION MAY BE OMITTED. This clinical summary was aggregated from multiple sources. Caution should be exercised in using it in the provision of clinical care. This summary normalizes information from multiple sources, and as a consequence, information in this document may materially change the coding, format and clinical context of patient data. In addition, data may be omitted in some cases. CLINICAL DECISIONS SHOULD BE BASED ON THE PRIMARY CLINICAL RECORDS. [employer] [facility]. provides no warranty or guarantee of the accuracy or completeness of information in this document.
[2023-09-26 00:38] VITALS: BMI 44.2
[2023-09-26 00:45] VITALS: BP 122/75; PULSE 71; O2SAT 99
[2023-09-26 00:55] VITALS: TEMP 36.8
[2023-09-26 01:46] LABS: ROM Internal Control Test YES-OK TO RESULT pt. (Internal QC); ROM Patient Test Negative (Negative)
--- NOTE | 2023-09-26 07:24 | OB.TRI.NOTE ---
HPI - General HPI Narrative LIZETT LANDON, is a 33 F at 38 weeks gestation who presents with contractions. PFSH PFS Medical History (Updated 09/26/23 @ 07:27 by Yissel Ramon CNM) Anxiety Depression Home Medications fluoxetine 10 mg capsule 10 mg PO DAILY anxiety/depression 09/26/23 [History Last Taken 09/25/23 09:00] levothyroxine 50 mcg tablet 50 mcg PO DAILY hypothyroidism 09/26/23 [History Last Taken 09/25/23 09:00] prazosin 2 mg capsule 4 mg PO DAILY night terrors 09/26/23 [History Last Taken 09/25/23] vits no.130-ferrous fum 27 mg iron-folic acid 800 mcg tablet ( Vitamin) tab 09/26/23 [History Last Taken 09/25/23 09:00] Allergy/AdvReac Type Severity Reaction Status Date / Time azithromycin [From Zithromax] AdvReac Nausea/Vom/ Verified 05/27/23 10:02 Diarrhea NSAIDS (Non-Steroidal AdvReac NVD Verified 05/27/23 10:02 Anti-Inflamma Surgical History (Updated 09/26/23 @ 07:27 by Yissel Ramon CNM) Gastric bypass status for obesity Social History Smoking Status: Former smoker ROS Eyes Eyes: Denies blurry vision, change in vision or spots in vision ENT HEENT: Denies dizziness or headache(s) Cardiovascular Cardiovascular: Denies abdominal pain, chest pain or dyspnea Respiratory/Chest Respiratory/Chest: Denies cough, dyspnea, shortness of breath at rest or shortness of breath with exertion Gastrointestinal Gastrointestinal: Denies abdominal pain, diarrhea or vomiting Genitourinary Genitourinary: Denies change in urinary stream, difficulty urinating or dysuria Musculoskeletal Musculoskeletal: Reports none Integumentary Integumentary: Denies rash Neurologic Neurologic: Denies dizziness, headache(s), memory loss or weakness Physical Exam Const alert and no apparent distress General Appearance: cooperative Orientation / Consciousness: awake Exam Limitations: no limitations HEENT normocephalic Eyes General Eye: normal appearance of both eyes Neck full ROM Chest inspection of chest normal Resp normal respiratory effort and normal air movement Effort and Inspection: symmetric chest movement Auscultation: clear to auscultation bilaterally Cardio regular rate GI soft to palpation, non-tender and non-distended Inspection: and other Back/Spine normal ROM Extremity full ROM, normal capillary refill and no calf tenderness Skin no rashes or lesions noted Neuro oriented x3 and CN's II-XII intact bilaterally Psych mental status grossly normal NST FHR Rate Baby A Baseline: 135 Variability:: Moderate Accelerations:: 15 x 15 NST Reactive:: Yes Uterine Activity:: Irregular Assessment & Plan (1) Uterine contractions: (2) 38 weeks gestation of : (3) History of gastric bypass: (4) Hypoglycemia: PLAN: Plan NST reactive CE unchanged Patient feeling less pain and would like to go home D/C home with follow up in office
== END 2023-09-26 02:40 | disposition home or self-care (01) ==
LOC: WPOUT 00:26 → WP 00:27
PROVIDERS: PCP Nurse Practitioner Family; Visit Provider Advanced Practice Midwife
DX: O47.1 False labor at or after 37 completed weeks of gestation (principal); O99.343 Other mental disorders complicating pregnancy, third trimester; O99.283 Endocrine, nutritional and metabolic diseases complicating pregnancy, third trimester; F41.9 Anxiety disorder, unspecified; F32.A Depression, unspecified; E16.2 Hypoglycemia, unspecified; Z87.891 Personal history of nicotine dependence; Z3A.38 38 weeks gestation of pregnancy; Z79.899 Other long term (current) drug therapy
CPT/HCPCS: 59025; 59050; 84112; 99221; G0378

== ENCOUNTER 2023-10-02 18:45 | Inpatient (IN) | payer OTHER, SELFPAY ==
[2023-10-02 19:19] VITALS: BMI 45.4
[2023-10-02 20:02] VITALS: BP 133/72; PULSE 72; PULSE 78; TEMP 36.8; O2SAT 97
[2023-10-02 20:09] LABS: Absolute Lymphocyte Count 1.46 X10^3/uL (0.83-4.51); Absolute Neutrophil Count 6.1 X10^3/uL (2.0-7.7); Basophil# 0.02 X10^3/uL; Basophil% 0.2 % (0-1); Eosinophil# 0.11 X10^3/uL; Eosinophils% 1.3 % (0-5); Hematocrit 35.6 % (37-47); Lymphocyte # 1.46 X10^3/ul (0.83-4.51); Lymphocyte % 17.7 % (19-41); Mean Corp Hgb Conc 33.7 g/dL (32-36); Mean Corpuscular Hgb 31.2 pg (27.0-32.0); Mean Corpuscular Volume 92.5 fL (81-99); Mean Platelet Vol. 11.4 fl (6.2-12.0); Monocyte% 6.1 % (0-10); NRBC Flagged by Analyzer 0 % (0-5); Neutrophil # 6.12 X10^3/uL (2.7-7.7); Neutrophil % 74.5 % (47-70); Platelet Count 199 K/mm3 (150-450); RBC Distribution Width CV 13.3 % (11.6-14.6); RBC Distribution Width SD 45.1 fl (35.1-43.9); Red Blood Count 3.85 M/mm3 (4.2-5.4); White Blood Count 8.2 K/mm3 (4.4-11.0)
[2023-10-02 20:46] LABS: Syphilis Antibodies Non-reactive
[2023-10-02] MEDS: miSOPROStol 25 MCG TABLET PO (20:55)
[2023-10-02] MEDS: 0.9% Normal Saline Single 100 ML IV.SOLN. INTRA-UTER (20:56)
[2023-10-02] MEDS: Acetaminophen 500 MG Tablet PO (21:17)
[2023-10-02] MEDS: CHLORHEXIDINE GLUC 2% CLOTH 1 EACH TOWELETTE TOPICAL (23:06)
[2023-10-03] VITALS (40 sets, daily range): BP systolic 112–150; BP diastolic 57–90; PULSE 56–95; RESP 16; TEMP 36.1–36.6; O2SAT 90–100
[2023-10-03] MEDS: miSOPROStol 25 MCG TABLET PO (00:59)
[2023-10-03] MEDS: Lactated Ringers 1,000 ML 50 ML IV (05:09)
[2023-10-03] MEDS: Oxytocin 15 Units/NS 250ml 15 UNITS/250 ML IV.SOLN 2 UNITS IV (05:09)
[2023-10-03] MEDS: LACTATED RINGERS 500 ML 999 ML IV ×2 (07:51→13:35)
--- NOTE | 2023-10-03 08:16 | HP.PCM.OB_ITS ---
HPI - General General Date of Admission: 10/02/23 Date of Service: 10/02/23 Chief Complaint: induction HPI Narrative LIZETT LANDON, is a 33 F who presents for induction of labor due to maternal obesity. She has had a history of a previous gastric bypass and history of infertility. She has a history of hypothyroidism. History of depression. She is also rubella nonimmune and history of asthma Maternal Data Information Final VERONA: 09/10/23 Gestational age: 39 1/7 [facility] Medical History (Updated 10/03/23 @ 08:[address] Millie Salamanca MD) Anxiety Asthma Depression Infertility Thyroid disorder Home Medications fluoxetine 10 mg capsule 10 mg PO DAILY anxiety/depression 09/26/23 [History Last Taken 10/02/23 08:32 10 mg] levothyroxine 50 mcg tablet 50 mcg PO DAILY hypothyroidism 09/26/23 [History Las t Taken 10/02/23 08:33 50 mcg] prazosin 2 mg capsule 4 mg PO DAILY night terrors 09/26/23 [History Last Taken 10/01/23 23:30 4 mg] vits no.130-ferrous fum 27 mg iron-folic acid 800 mcg tablet ( Vitamin) 1 tab PO DAILY 09/26/23 [History Last Taken 10/02/23 08:00 1 TAB] Allergy/AdvReac Type Severity Reaction Status Date / Time azithromycin [From Zithromax] AdvReac Nausea/Vom/ Verified 10/02/23 19:29 Diarrhea NSAIDS (Non-Steroidal AdvReac NVD Verified 10/02/23 19:29 Anti-Inflamma Surgical History (Updated 10/02/23 @ 21:04 by Raegan Rodarte) Gastric bypass status for obesity History of surgery Social History Smoking Status: Never smoker History Elective abortions Hx Para 0 Spontaneous abortions Hx # Term Pregnancies Ectopic pregnancies Hx # Pregnancies Multiple births # of living children ROS Constitutional Constitutional: Denies fatigue, fever(s) or malaise Eyes Eyes: Denies change in vision ENT HEENT: Denies dizziness or headache(s) Cardiovascular Cardiovascular: Denies chest pain, dyspnea or lightheadedness Respiratory/Chest Respiratory/Chest: Denies cough or dyspnea Gastrointestinal Gastrointestinal: Denies change in bowel habits Genitourinary Genitourinary: Denies burning urination or genital lesions Integumentary Integumentary: Denies rash Neurologic Neurologic: Denies confusion, dizziness, headache(s), numbness or weakness Vital Signs Vital Signs Vital Signs: 10/02/23 20:02 10/02/23 20:02 10/02/23 20:02 Temperature Temperature Source Temporal Pulse Rate 72 Blood Pressure 133/72 H BP Systolic 133 BP Diastolic 72 Pulse Ox 10/02/23 20:02 10/02/23 20:02 10/02/23 20:02 Temperature 98.2 F Temperature Source Pulse Rate 78 Blood Pressure BP Systolic BP Diastolic Pulse Ox 97 10/03/23 00:09 10/03/23 00:09 10/03/23 00:08 Temperature Temperature Source Pulse Rate 60 Blood Pressure 118/66 BP Systolic 118 BP Diastolic 66 Pulse Ox 98 10/03/23 00:08 10/03/23 00:08 10/03/23 00:08 Temperature Temperature Source Temporal Pulse Rate 58 L Blood Pressure 118/66 BP Systolic 118 BP Diastolic 66 Pulse Ox 10/03/23 00:08 10/03/23 00:08 10/03/23 03:41 Temperature 97.5 F L Temperature Source Temporal Pulse Rate Blood Pressure BP Systolic BP Diastolic Pulse Ox 97 10/03/23 03:41 10/03/23 03:41 10/03/23 03:41 Temperature Temperature Source Pulse Rate 61 Blood Pressure 119/68 BP Systolic 119 BP Diastolic 68 Pulse Ox 98 10/03/23 03:41 10/03/23 05:45 10/03/23 05:45 Temperature 97.2 F L Temperature Source Pulse Rate 63 Blood Pressure 121/73 H BP Systolic 121 BP Diastolic 73 Pulse Ox 10/03/23 05:45 10/03/23 05:45 10/03/23 05:45 Temperature Temperature Source Temporal Pulse Rate 66 Blood Pressure 121/73 H BP Systolic 121 BP Diastolic 73 Pulse Ox 10/03/23 05:45 10/03/23 05:45 10/03/23 07:21 Temperature 97.1 F L Temperature Source Pulse Rate Blood Pressure 119/75 BP Systolic 119 BP Diastolic 75 Pulse Ox 97 10/03/23 07:21 10/03/23 07:21 10/03/23 07:21 Temperature Temperature Source Pulse Rate 67 70 Blood Pressure BP Systolic BP Diastolic Pulse Ox 98 10/03/23 07:20 10/03/23 07:20 10/03/23 07:20 Temperature 97.8 F Temperature Source Temporal Pulse Rate Blood Pressure BP Systolic BP Diastolic Pulse Ox 98 Weight Weight: 123.831 kg Body Mass Index (BMI) 45.4 Physical Exam Const alert and no apparent distress General Appearance: cooperative HEENT normocephalic Resp normal respiratory effort Cardio regular rate GI soft to palpation GI Narrative: gravid, nontender, appropriate for gestational age Extremity no calf tenderness General Extremity: edema Skin no wounds Rashes: No rashes noted Psych activity/motor behavior normal Labs Labs Labs: Blood Type Pending Antibody Screen NEGATIVE Hct 35.6 % (37-47) L Hgb 12.0 g/dL (12.0-15.0) Syphilis Total Ab Non-reactive Assessment & Plan (1) 39 weeks gestation of : PLAN: 33-year-old 1 para 0 for induction of labor due to maternal obesity. Current BMI 45. Estimated weight is less than 4500 g clinically and by ultrasound and pelvis clinically adequate to expect vaginal delivery. At approximately 8:30 PM a Pereyra catheter was placed over the stylette into the cervix and placed above the internal cervical os. Placement was confirmed. Patient and fetus tolerated the procedure well. heart tones were category 1. Expectant management for vaginal delivery. May have routine pain control measures as indicated. May have light diet until Pitocin started. (2) Nulliparity: (3) Supervision of other high risk pregnancies, third trimester: (4) Maternal obesity syndrome in third trimester: (5) BMI 45.0-49.9, adult:
--- NOTE | 2023-10-03 08:22 | PCM.PN.BLA ---
Progress Note heart tones category 1. Patient is not appreciating contractions, they are mild. On Pitocin. Had a Pereyra catheter and Cytotec last night. Artificial rupture membranes with return of moderate amount of clear fluid. IUPC placed. Continue expectant management for vaginal delivery. Oncoming team updated on patient's status.
[2023-10-03] MEDS: fentaNYL-bupivacaine (epidural) 100 ML BAG EPIDURAL (09:03)
[2023-10-03] MEDS: CHLORHEXIDINE GLUC 2% CLOTH 1 EACH TOWELETTE TOPICAL (10:30)
[2023-10-03 14:09] LABS: Bedside Glucose 79 mg/dL (74-106)
--- NOTE | 2023-10-03 14:48 | EX.PCM.OBRPT ---
Assessment & Plan (1) (spontaneous vaginal delivery): (2) BMI 45.0-49.9, adult: (3) Maternal obesity syndrome in third trimester: (4) Supervision of other high risk pregnancies, third trimester: (5) Anxiety: (6) History of gastric bypass: (7) Rubella non-immune status, antepartum: (8) Rh negative status during : (9) Clomid : (10) Encounter for induction of labor: Maternal Data Information VERONA Calculator Estimated Delivery Date Method Current WG Current Estimate 10/09/23 Manual 39w 1d Final VERONA: 10/09/23 Vaginal Delivery Maternal Presentation Maternal Presentation: Medically Indicated Induction Type of Induction: Pitocin, Pereyra Bulb, Amniotomy and Cytotec Medical Reason for Induction: Maternal Medical Condition: list: (Obesity, Hx of gastric bypass surgery) Operative Information Date of Procedure: 10/03/23 Pre-Operative Diagnosis: Term gestation, Induction of labor Post-Operative Diagnosis: , live male Surgery / Procedure Performed: Spontaneous Vaginal Delivery Type of Anesthesia: Epidural Estimated Blood Loss: 300 Time of Delivery: 14:10 Findings Description of Procedure: Called to patient's room to be at bedside during pushing due to decelerations. Patient having vagal response when pushing and would have to stop due to feeling light headed and like she was going to pass out. Pushed while on her side. With good maternal effort, head delivered followed quickly by posterior shoulder and remainder of infant body. Double nuchal cord easily reduced. Vigorous male placed on maternal abdomen and attended to by nursing staff. Pitocin IV started for active management of the third stage of labor. 3 vessel cord clamped and cut by FOB and infant placed skin to skin with patient. Cord blood collected. Placenta delivered spontaneously and intact. First degree vaginal laceration and bilateral periurethral lacerations repaired in usual fashion using 3-0 Vicryl. Hemostasis obtained. Fundus firm at U. EBL 300 cc. APGARS 9/9. Patient and infant bonding well at this time. Dr. Vila notified of delivery. Presentation: Vertex Amniotic Membrane Rupture Type: Artificial Time of Membrane Rupture: 0735 Amniotic Fluid Description: Clear Placental Delivery Description: Spontaneous Placenta Disposition: [facility] Cord Vessel Description: 3 Vessels Cord Entanglement: Around neck x 2, loose Nuchal Cord Compression: Without compression Infant A Gender: Male (1 minute): 9 (5 minute): 9 Delayed Cord Clamping: Yes Post Vaginal Delivery Medications Given After Delivery: IV Pitocin Episiotomy Description: None Laceration: Periurethral Extnsion/lac, Vaginal Extension/lac and 1st degree Complication Complications: None
[2023-10-03] MEDS: Oxytocin 15 Units/NS 250ml 15 UNITS/250 ML IV.SOLN 83 UNITS IV (14:50)
[2023-10-03] MEDS: 0.9% Saline Lock 10 ML Syringe IV (18:03)
[2023-10-03] MEDS: Ketorolac 15 MG/ML Vial IV (18:03)
--- NOTE | 2023-10-03 18:30 | NURSING ---
1814 pt up oob up to br to try and void- pt unable to void- pt states that her perineum is still numb- pericare done and demonstrated- pt gait steady when up
[2023-10-04] VITALS (11 sets, daily range): BP systolic 106–134; BP diastolic 51–86; PULSE 71–78; RESP 16; TEMP 36.3–36.4; O2SAT 96
[2023-10-04] MEDS: Ketorolac 15 MG/ML Vial IV ×2 (00:12→06:20)
[2023-10-04] MEDS: 0.9% Saline Lock 10 ML Syringe IV ×2 (00:12→06:20)
[2023-10-04] MEDS: Levothyroxine 50 MCG Tablet PO (06:16)
[2023-10-04] MEDS: Senna/Docusate Sodium 1 Tablet PO (06:25)
[2023-10-04] MEDS: FLUoxetine 10 MG Capsule PO ×2 (10:04)
[2023-10-04] MEDS: Acetaminophen 500 MG Tablet 1000 MG PO (11:05)
[2023-10-04] MEDS: MEASLES,MUMPS,RUBELLA VACC/PF 0.5 ML SC (11:05)
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
--- NOTE | 2023-10-04 14:11 | PCM.DC.SUM ---
Providers Date of Admission: 10/02/23 Primary Care Physician: ALEX Cosme Reason For Visit: VAGINAL DELIVERY Diagnosis Discharge Diagnosis (1) (spontaneous vaginal delivery): Status: Acute Code(s): O80 - Encounter for full-term uncomplicated delivery (2) BMI 45.0-49.9, adult: Status: Acute Code(s): Z68.42 - Body mass index [BMI] 45.0-49.9, adult (3) Maternal obesity syndrome in third trimester: Status: Acute Code(s): O99.213 - Obesity complicating , third trimester (4) Supervision of other high risk pregnancies, third trimester: Status: Acute Code(s): O09.893 - Supervision of other high risk pregnancies, third trimester (5) Anxiety: Status: Acute Code(s): F41.9 - Anxiety disorder, unspecified (6) History of gastric bypass: Status: Acute Code(s): Z98.84 - Bariatric surgery status (7) Rubella non-immune status, antepartum: Status: Acute Code(s): O09.899 - Supervision of other high risk pregnancies, unspecified trimester; Z28.39 - Other underimmunization status (8) Rh negative status during : Status: Acute Code(s): O26.899 - Other specified related conditions, unspecified trimester; Z67.91 - Unspecified blood type, Rh negative (9) Clomid : Status: Acute Code(s): O09.00 - Supervision of with history of infertility, unspecified trimester (10) Encounter for induction of labor: Status: Acute Code(s): Z34.90 - Encounter for supervision of normal , unspecified, unspecified trimester Medications at Discharge Home Medications fluoxetine 10 mg capsule 10 mg PO DAILY anxiety/depression 09/26/23 levothyroxine 50 mcg tablet 50 mcg PO DAILY hypothyroidism 09/26/23 prazosin 2 mg capsule 4 mg PO DAILY night terrors 09/26/23 vits no.130-ferrous fum 27 mg iron-folic acid 800 mcg tablet ( Vitamin) 1 tab PO DAILY 09/26/23 Hospital Course Operations None Procedures None Summary of Care Provided Minutes Spent on Discharge: 27 Hospital Course: Induction of labor with Cytotec Pereyra bulb, Pitocin. Vaginal delivery of male without complication. Physical Exam Const alert and no apparent distress Narrative: Fundus firm, below umbilicus. Weight / BMI Weight Weight: 123.831 kg Body Mass Index (BMI) 45.4 ABG / Lab / Microbiology Data 10/02/23 19:50 D/C Instructions Discharge Diet: No restrictions May resume sexual activity in: 6 weeks Call your doctor if your incision/area has: Continuous Slow Oozing, Sudden Increased Bleeding, Foul Smelling Discharge and Swelling at the incision site Call your doctor if you observe: Fever of 101 or Higher and Inability to urinate Please Follow Up With: Millie Salamanca MD When: Follow up with our office in 1-2 and 6 weeks or as needed. [phone] Meaningful Use Info Meaningful Use Diagnoses (Choose all that apply): None applicable Discharge Plan Admission Admit Date/Time: 10/02/23 18:45 Primary Reason for Your Visit: Induction of labor Attending Provider: Yissel Ramon Primary Care Provider: Maddie Briseno Instructions Patient Instructions: After a Vaginal Discharge Orders/Prescriptions Prescriptions: No Action levothyroxine 50 mcg tablet 50 mcg PO DAILY fluoxetine 10 mg capsule 10 mg PO DAILY Patient Comments: 1 CAPSULE(S) ONCE A DAY IN THE MORNING FOR 90 DAY(S), ORAL ROUTE prazosin 2 mg capsule 4 mg PO DAILY Patient Comments: TAKE 2 CAPSULE(S) BY MOUTH ONCE A DAY AFTER A MEAL Vitamin 27 mg iron- 800 mcg tablet 1 tab PO DAILY Patient Comments: TAKE 1 TABLET BY MOUTH EVERY DAY Referrals / Follow Up: Maddie Briseno, COACH BUILDER-C [Primary Care Provider] - Disposition Disposition (needs filled in before D/C Order can be placed): Home, Self Care
--- NOTE | 2023-10-04 14:14 | PCM.PN.OB ---
Subjective Subjective Doing well. Complains of pelvic soreness. Cannot take NSAIDS due to hx of gastric bypass. Has been using ice packs. Also instructed on tucks pads and sits bath. No BM but passing gas. Breast feeding well. Good latch. No consultation scheduled post . Did see them prenatally. Objective Data Objective Data Vital Signs: Vital Signs Temp Pulse Resp BP Pulse Ox O2 Del Method 97.6 F L 71 16 131/83 H 96 Room Air 10/04/23 08:36 10/04/23 11:39 10/04/23 08:36 10/04/23 11:39 10/04/23 03:55 10/04/23 08:36 Oxygen Delivery Method Room Air Weight: 123.831 kg Body Mass Index (BMI) 45.4 Intake & Output: Intake and Output for Last 24 Hours 10/02/23 10/03/23 10/04/23 23:59 23:59 23:59 Intake Total 3259.96 / 3259.96 Output Total 1100 / 1100 250 / 250 Balance 2159.96 / 2159.96 -250 / -250 Lab / Micro Data 10/02/23 19:50 Physical Exam Const alert and no apparent distress Narrative: Fundus firm, below umbilicus. Assessment & Plan (1) (spontaneous vaginal delivery): (2) BMI 45.0-49.9, adult: PLAN: Plan Discharge home. Has appointment scheduled in office on Saturday
== END 2023-10-04 17:05 | disposition home or self-care (01) | DRG 807 ==
PROVIDERS: Obstetrics & Gynecology; Admitting Provider Advanced Practice Midwife; PCP Nurse Practitioner Family; Referring Provider Obstetrics & Gynecology; Visit Provider Advanced Practice Midwife
DX: O26.03 Excessive weight gain in pregnancy, third trimester (principal); Z37.0 Single live birth; O99.344 Other mental disorders complicating childbirth; E03.9 Hypothyroidism, unspecified; F32.A Depression, unspecified; F41.9 Anxiety disorder, unspecified; O76 Abnormality in fetal heart rate and rhythm complicating labor and delivery; O69.81X0 Labor and delivery complicated by cord around neck, without compression, not applicable or unspecified; O99.284 Endocrine, nutritional and metabolic diseases complicating childbirth; O26.893 Other specified pregnancy related conditions, third trimester; Z67.91 Unspecified blood type, Rh negative; O70.0 First degree perineal laceration during delivery; O71.82 Other specified trauma to perineum and vulva; Z3A.39 39 weeks gestation of pregnancy; Z79.899 Other long term (current) drug therapy; Z98.84 Bariatric surgery status; Z87.891 Personal history of nicotine dependence
CPT/HCPCS: 59025; 59050; 82962; 85025; 86780; 86850; 86900; 86901; 99221; J7120; A4216; G0378